=== PATIENT | female | born 1995 | race Caucasian/White ===

== ENCOUNTER → 2018-04-06 09:47 | Outpatient (CLI) | payer OTHER, MEDICAID, SELFPAY ==
--- NOTE | 2018-04-06 09:50 | DI.US.S_ITS ---
PROCEDURE: US PELVIC COMPLETE INDICATIONS: RIGHT OVARIAN PAIN TECHNIQUE: Real-time scanning was performed of the pelvic organs, with image documentation. Additional endovaginal scanning was necessary due to incomplete visualization of the adnexal and endometrial structures by transabdominal scanning. COMPARISON: [facility], [place], PELVIC COMPLETE, 01/24/2018, 7:52. [facility], [place], PELVIC COMPLETE, 01/14/2018, 22:56. [facility], [place], ABDOMEN/PELVIS WITH CONTRAST, 10/15/2017, 8:54. [facility], [place], PELVIC COMPLETE, 04/26/2017, 16:23. [facility], [place], PELVIC COMPLETE, 07/03/2016, 15:01. FINDINGS: Transabdominal scanning: Limited scanning through the kidneys shows no hydronephrosis. No pathologic free abdominal or pelvic fluid. Endovaginal scanning: Uterus: The uterus is normal in position and measures 6.1 x 3.6 x 3.8 cm. No focal myometrial lesions are identified. The endometrium is trilaminar appearance and measures 7 mm in maximal combined thickness. No significant fluid is seen within the endometrium. The cervix is unremarkable. Ovaries: The right ovary measures 3.8 x 1.6 x 1.8 cm. The left ovary measures 4.6 x 1.6 x 2.6 cm. Both ovaries are normal in size. No cystic or solid lesions of the ovaries are evident. Small follicles are present on both ovaries. Blood flow is demonstrated to both ovaries, which demonstrate normal Doppler arterial wave forms. IMPRESSION: Unremarkable uterus and ovaries. No ovarian cysts. Dictated by: Tj Álvarez M.D. on 04/06/2018 at 11:04 Approved by: Tj Álvarez M.D. on 04/06/2018 at 11:05
== END ==
PROVIDERS: Family Provider Physician Assistant; PCP Physician Assistant; Visit Provider Obstetrics & Gynecology
DX: R10.2 Pelvic and perineal pain (principal)
CPT/HCPCS: 76830; 76856

== ENCOUNTER 2018-06-15 19:17 | Emergency (ER) | payer OTHER, SELFPAY ==
[2018-06-15 19:35] VITALS: BP 143/103; PULSE 87; RESP 17; TEMP 36.7; O2SAT 100; BMI 22.1
--- NOTE | 2018-06-15 21:03 | PC.NURSE ---
2100 upset about wait and wanted to know how much longer before seeing a MD. I told him that I couldn't be certain and told him my guess was 30 minutes. Asked Katie if there was anything I could do to start the patient and she said not right now. US told about patient
[2018-06-15 21:11] VITALS: BP 141/89; PULSE 79; RESP 16; O2SAT 98
--- NOTE | 2018-06-15 21:18 | DI.US.S_ITS ---
PROCEDURE: US PELVIC COMPLETE INDICATIONS: LEFT PELVIC PAIN TECHNIQUE: Real-time scanning was performed of the pelvic organs, with image documentation. Additional endovaginal scanning was necessary due to incomplete visualization of the adnexal and endometrial structures by transabdominal scanning. COMPARISON: [facility], PELVIC COMPLETE, 01/14/2018, 22:56. [facility], PELVIC COMPLETE, 01/24/2018, 7:52. [facility], PELVIC COMPLETE, 04/06/2018, 10:14. FINDINGS: Transabdominal scanning: Limited scanning through the kidneys shows no hydronephrosis. The kidneys measure 11.3 CM right and 10.6 CM left. Small free pelvic fluid is present. Endovaginal scanning: Uterus: Uterus is normal in size at 3.5 x 4.2 x 5.8 cm. The endometrium measures 6.8 mm in combined thickness. Ovaries: The right ovary measures 18 x 20 x 38 mm with normal appearance. The left ovary measures 17 x 30 x 38 mm and contains a complex, avascular cyst measuring 13 x 19 x 24 mm. IMPRESSION: 1. Normal uterus and right ovary. 2. Left ovary contains a slightly irregular cyst measuring up to 2.4 cm in size. With presence of mild free fluid, recently ruptured cyst is suspected and could explain left pelvic pain. Dictated by: Valentin Garcia M.D. on 06/16/2018 at 8:33 Approved by: Valentin Garcia M.D. on 06/16/2018 at 8:41
--- NOTE | 2018-06-15 21:20 | ED.FEMALEGU ---
HPI - Female Genitourinary General Chief complaint: Urogenital-Female Stated complaint: PELVIC PAIN Time Seen by Provider: 06/15/18 21:15 Source: patient Mode of arrival: ambulatory Limitations: no limitations History of Present Illness HPI Narrative: Patient is a 22-year-old female who presents with left lower quadrant pain. She has a history of ovarian cyst. This feels similar. She has been having pain for the last 2 days progressively getting worse. She took a muscle relaxer which did not work. She denies any vaginal bleeding or vaginal discharge. MD Complaint: pelvic pain Related Data Previous Rx's Medication Instructions Recorded bupropion HCl [Wellbutrin XL] 150 mg PO QDAY #30 tab 03/05/17 estradiol [Estrace] 1 gm VAGINAL BID #30 gm 08/11/17 estradiol [Estring] 0.0075 mg VAGINAL Q 3 MONTHS #1 icr 11/23/17 fluticasone 1 spray INTRANASAL QDAY #16 gm 02/23/18 loratadine-pseudoephedrine 1 tab PO QDAY #30 tab 02/23/18 [Claritin-D 24 Hour] [id number] 1 drp OTIC TID #10 ml 02/23/18 griseofulvin microsize 125 mg/5 mL 250 mg PO BID #240 ml 04/14/18 oral suspension meloxicam [Mobic] 7.5 mg PO DAILY PRN #20 tab 06/15/18 Allergies Allergy/AdvReac Type Severity Reaction Status Date / Time No Known Drug Allergies Allergy Verified 06/15/18 19:35 Review of Systems Review of Systems All systems reviewed & are unremarkable except as noted in HPI and below Constitutional Denies chills, Denies fever(s), Denies lethargy and Denies weakness Cardiovascular Denies chest pain, Denies irregular heart rhythm, Denies lightheadedness, Denies palpitations and Denies orthopnea Gastrointestinal Gastrointestinal: Denies abdominal pain, Denies change in bowel habits, Denies diarrhea, Denies nausea and Denies vomiting Genitourinary Reports system reviewed and no additional complaints, except as docu Musculoskeletal Denies back pain, Denies muscle weakness, Denies numbness and Denies tingling Integumentary/Breasts Denies pruritus, Denies erythema, Denies rash and Denies wounds Neurologic Denies numbness, Denies tingling and Denies weakness Endocrine Denies palpitations [facility] Medical History Ovarian cyst (Acute) Dyspareunia (Chronic Unknown) Surgical History History of third molar tooth extraction Status post laparoscopy (07/20/16) Status post laparoscopy (10/29/17) Social History Smoking Status: Never smoker alcohol intake: never substance use type: does not use Exam Initial Vital Signs Initial Vital Signs: Vital Signs Temperature 98.1 F 06/15/18 19:35 Pulse Rate 87 06/15/18 19:35 Respiratory Rate 17 06/15/18 19:35 Blood Pressure 143/103 H 06/15/18 19:35 Pulse Oximetry 100 06/15/18 19:35 GENERAL: Young female appears in pain HEENT: Head atraumatic,EOMI, pupils reactive CARDIOVASCULAR: Regular rate and rhythm without murmurs, rubs or gallops. RESPIRATORY: Breath sounds equal bilaterally, no wheezes rales or rhonchi. ABDOMEN: Soft, left lower quadrant pain without guarding or rebound, no CVA tenderness EXTREMITIES: Normal range of motion, no clubbing or edema. Neurovascularly intact NEUROLOGICAL: Alert and oriented x4.Normal gait and speech. SKIN: Warm, dry, no laceration, no petechiae, no rashes or lesions. Course Orders Ordered: ED Orders 06/15/18 21:18 US pelvic complete Stat Discontinued Medications Ketorolac Tromethamine (Toradol) 60 mg IM NOW ONE Stop: 06/15/18 21:16 Last Admin: 06/15/18 21:27 Dose: 60 mg Ondansetron HCl (Zofran Odt) 4 mg PO NOW ONE Stop: 06/15/18 21:16 Last Admin: 06/15/18 21:27 Dose: 4 mg Tramadol HCl (Ultram 50mg Prepack) 1 bottle MISC SEEINSTR ONE Stop: 06/15/18 23:32 Last Admin: 06/15/18 23:32 Dose: 1 bottle Vital Signs - 8 hr 06/15/18 21:11 06/15/18 22:00 Pulse Rate 79 81 Respiratory Rate 16 Blood Pressure [Left Arm] 141/89 H 117/76 Pulse Oximetry 98 98 MDM - Female Genitourinary Lab Data Attestation: I reviewed the patient's lab results. P.o. see hCG negative POC UA negative Imaging Data Pelvic ultrasound: Radiologist's impression: PROCEDURE: US PELVIC COMPLETE INDICATIONS: RIGHT OVARIAN PAIN TECHNIQUE: Real-time scanning was performed of the pelvic organs, with image documentation. Additional endovaginal scanning was necessary due to incomplete visualization of the adnexal and endometrial structures by transabdominal scanning. COMPARISON: [facility], [place], PELVIC COMPLETE, 01/24/2018, 7:52. [facility], [place], PELVIC COMPLETE, 01/14/2018, 22:56. [facility], CT, ABDOMEN/PELVIS WITH CONTRAST, 10/15/2017, 8:54. [facility], [place], PELVIC COMPLETE, 04/26/2017, 16:23. [facility], , PELVIC COMPLETE, 07/03/2016, 15:01. FINDINGS: Transabdominal scanning: Limited scanning through the kidneys shows no hydronephrosis. No pathologic free abdominal or pelvic fluid. Endovaginal scanning: Uterus: The uterus is normal in position and measures 6.1 x 3.6 x 3.8 cm. No focal myometrial lesions are identified. The endometrium is trilaminar appearance and measures 7 mm in maximal combined thickness. No significant fluid is seen within the endometrium. The cervix is unremarkable. Ovaries: The right ovary measures 3.8 x 1.6 x 1.8 cm. The left ovary measures 4.6 x 1.6 x 2.6 cm. Both ovaries are normal in size. No cystic or solid lesions of the ovaries are evident. Small follicles are present on both ovaries. Blood flow is demonstrated to both ovaries, which demonstrate normal Doppler arterial wave forms. IMPRESSION: Unremarkable uterus and ovaries. No ovarian cysts. Dictated by: Tj Álvarez M.D. on 04/06/2018 at 11:04 MDM Narrative Medical decision making narrative: Initially feeling much better after Toradol. Ovarian cyst noted. She has an appointment with a new advanced developer or endometriosis specialist. That is to have in the next couple of weeks. Discharge Plan Departure Patient Disposition: Home, Self-Care Clinical Impression: Ovarian cyst Discharge Date/Time: 06/15/18 23:32 Interventions: ED Discharge Assessment Last Done: 06/15/18 23:13 Instructions: DI for Ovarian Cyst Activity Restrictions/Additional Instructions: *You have been diagnosed with ovarian cyst *What to do: Follow-up with your advanced developer specialist *Continue to take medications as directed-[facility] [place] Mobic 1 tablet once a day if needed for pain do not combine with other NSAIDs such as ibuprofen, Aleve, Advil naproxen etc *Follow up with your primary care provider in 2-3 days *Return to ER if you should have increasing pain, vaginal bleeding or any new, worsening or concerning symptoms Prescriptions: New meloxicam [Mobic] 7.5 mg tablet 7.5 mg PO DAILY PRN (Reason: pain) Qty: 20 RF: 0 No Action griseofulvin microsize 125 mg/5 mL suspension 250 mg PO BID Qty: 240 RF: 3 bupropion HCl [Wellbutrin XL] 150 MG tablet extended release 24 hr 150 mg PO QDAY Qty: 30 RF: 3 estradiol [Estrace] 0.01 % cream 1 gm Vaginal BID Qty: 30 RF: 3 estradiol [Estring] 1 EACH ring 0.0075 mg Vaginal Q 3 MONTHS Qty: 1 RF: 3 loratadine-pseudoephedrine [Claritin-D 24 Hour] 10 MG/240 MG tablet extended release 24 hr 1 tab PO QDAY Qty: 30 RF: 2 fluticasone 16 GM spray,suspension 1 spray Intranasal QDAY Qty: 16 RF: 1 [id number] 10 ML drops,suspension 1 drp OTIC TID Qty: 10 RF: 1 Referrals: Carolin Gutierrez PA-C [Primary Care Provider] -
--- NOTE | 2018-06-15 21:23 | ED_ITS ---
HPI - Female Genitourinary General Chief complaint: Urogenital-Female Stated complaint: PELVIC PAIN Time Seen by Provider: 06/15/18 21:15 Source: patient Mode of arrival: ambulatory Limitations: no limitations History of Present Illness HPI Narrative: Patient is a 22-year-old female who presents with left lower quadrant pain. She has a history of ovarian cyst. This feels similar. She has been having pain for the last 2 days progressively getting worse. She took a muscle relaxer which did not work. She denies any vaginal bleeding or vaginal discharge. MD Complaint: pelvic pain Related Data Previous Rx's Medication Instructions Recorded bupropion HCl [Wellbutrin XL] 150 mg PO QDAY #30 tab 03/05/17 estradiol [Estrace] 1 gm VAGINAL BID #30 gm 08/11/17 estradiol [Estring] 0.0075 mg VAGINAL Q 3 MONTHS #1 icr 11/23/17 fluticasone 1 spray INTRANASAL QDAY #16 gm 02/23/18 loratadine-pseudoephedrine 1 tab PO QDAY #30 tab 02/23/18 [Claritin-D 24 Hour] [id number] 1 drp OTIC TID #10 ml 02/23/18 griseofulvin microsize 125 mg/5 mL 250 mg PO BID #240 ml 04/14/18 oral suspension meloxicam [Mobic] 7.5 mg PO DAILY PRN #20 tab 06/15/18 Allergies Allergy/AdvReac Type Severity Reaction Status Date / Time No Known Drug Allergies Allergy Verified 06/15/18 19:35 Review of Systems Review of Systems All systems reviewed & are unremarkable except as noted in HPI and below Constitutional Denies chills, Denies fever(s), Denies lethargy and Denies weakness Cardiovascular Denies chest pain, Denies irregular heart rhythm, Denies lightheadedness, Denies palpitations and Denies orthopnea Gastrointestinal Gastrointestinal: Denies abdominal pain, Denies change in bowel habits, Denies diarrhea, Denies nausea and Denies vomiting Genitourinary Reports system reviewed and no additional complaints, except as docu Musculoskeletal Denies back pain, Denies muscle weakness, Denies numbness and Denies tingling Integumentary/Breasts Denies pruritus, Denies erythema, Denies rash and Denies wounds Neurologic Denies numbness, Denies tingling and Denies weakness Endocrine Denies palpitations [facility] Medical History Ovarian cyst (Acute) Dyspareunia (Chronic Unknown) Surgical History History of third molar tooth extraction Status post laparoscopy (07/20/16) Status post laparoscopy (10/29/17) Social History Smoking Status: Never smoker alcohol intake: never substance use type: does not use Exam Initial Vital Signs Initial Vital Signs: Vital Signs Temperature 98.1 F 06/15/18 19:35 Pulse Rate 87 06/15/18 19:35 Respiratory Rate 17 06/15/18 19:35 Blood Pressure 143/103 H 06/15/18 19:35 Pulse Oximetry 100 06/15/18 19:35 GENERAL: Young female appears in pain HEENT: Head atraumatic,EOMI, pupils reactive CARDIOVASCULAR: Regular rate and rhythm without murmurs, rubs or gallops. RESPIRATORY: Breath sounds equal bilaterally, no wheezes rales or rhonchi. ABDOMEN: Soft, left lower quadrant pain without guarding or rebound, no CVA tenderness EXTREMITIES: Normal range of motion, no clubbing or edema. Neurovascularly intact NEUROLOGICAL: Alert and oriented x4.Normal gait and speech. SKIN: Warm, dry, no laceration, no petechiae, no rashes or lesions. Course Orders Ordered: ED Orders 06/15/18 21:18 US pelvic complete Stat Discontinued Medications Ketorolac Tromethamine (Toradol) 60 mg IM NOW ONE Stop: 06/15/18 21:16 Last Admin: 06/15/18 21:27 Dose: 60 mg Ondansetron HCl (Zofran Odt) 4 mg PO NOW ONE Stop: 06/15/18 21:16 Last Admin: 06/15/18 21:27 Dose: 4 mg Tramadol HCl (Ultram 50mg Prepack) 1 bottle MISC SEEINSTR ONE Stop: 06/15/18 23:32 Last Admin: 06/15/18 23:32 Dose: 1 bottle Vital Signs - 8 hr 06/15/18 21:11 06/15/18 22:00 Pulse Rate 79 81 Respiratory Rate 16 Blood Pressure [Left Arm] 141/89 H 117/76 Pulse Oximetry 98 98 MDM - Female Genitourinary Lab Data Attestation: I reviewed the patient's lab results. P.o. see hCG negative POC UA negative Imaging Data Pelvic ultrasound: Radiologist's impression: PROCEDURE: US PELVIC COMPLETE INDICATIONS: RIGHT OVARIAN PAIN TECHNIQUE: Real-time scanning was performed of the pelvic organs, with image documentation. Additional endovaginal scanning was necessary due to incomplete visualization of the adnexal and endometrial structures by transabdominal scanning. COMPARISON: [facility], [place], PELVIC COMPLETE, 01/24/2018, 7:52. [facility], [place], PELVIC COMPLETE, 01/14/2018, 22:56. [facility], CT, ABDOMEN/PELVIS WITH CONTRAST, 10/15/2017, 8:54. [facility], [place], PELVIC COMPLETE, 04/26/2017, 16:23. [facility], , PELVIC COMPLETE, 07/03/2016, 15:01. FINDINGS: Transabdominal scanning: Limited scanning through the kidneys shows no hydronephrosis. No pathologic free abdominal or pelvic fluid. Endovaginal scanning: Uterus: The uterus is normal in position and measures 6.1 x 3.6 x 3.8 cm. No focal myometrial lesions are identified. The endometrium is trilaminar appearance and measures 7 mm in maximal combined thickness. No significant fluid is seen within the endometrium. The cervix is unremarkable. Ovaries: The right ovary measures 3.8 x 1.6 x 1.8 cm. The left ovary measures 4.6 x 1.6 x 2.6 cm. Both ovaries are normal in size. No cystic or solid lesions of the ovaries are evident. Small follicles are present on both ovaries. Blood flow is demonstrated to both ovaries, which demonstrate normal Doppler arterial wave forms. IMPRESSION: Unremarkable uterus and ovaries. No ovarian cysts. Dictated by: Tj Álvarez M.D. on 04/06/2018 at 11:04 MDM Narrative Medical decision making narrative: Initially feeling much better after Toradol. Ovarian cyst noted. She has an appointment with a new fill plant operator or endometriosis specialist. That is to have in the next couple of weeks. Discharge Plan Departure Patient Disposition: Home, Self-Care Clinical Impression: Ovarian cyst Discharge Date/Time: 06/15/18 23:32 Interventions: ED Discharge Assessment Last Done: 06/15/18 23:13 Instructions: DI for Ovarian Cyst Activity Restrictions/Additional Instructions: *You have been diagnosed with ovarian cyst *What to do: Follow-up with your fill plant operator specialist *Continue to take medications as directed-[facility] [place] Mobic 1 tablet once a day if needed for pain do not combine with other NSAIDs such as ibuprofen, Aleve, Advil naproxen etc *Follow up with your primary care provider in 2-3 days *Return to ER if you should have increasing pain, vaginal bleeding or any new, worsening or concerning symptoms Prescriptions: New meloxicam [Mobic] 7.5 mg tablet 7.5 mg PO DAILY PRN (Reason: pain) Qty: 20 RF: 0 No Action griseofulvin microsize 125 mg/5 mL suspension 250 mg PO BID Qty: 240 RF: 3 bupropion HCl [Wellbutrin XL] 150 MG tablet extended release 24 hr 150 mg PO QDAY Qty: 30 RF: 3 estradiol [Estrace] 0.01 % cream 1 gm Vaginal BID Qty: 30 RF: 3 estradiol [Estring] 1 EACH ring 0.0075 mg Vaginal Q 3 MONTHS Qty: 1 RF: 3 loratadine-pseudoephedrine [Claritin-D 24 Hour] 10 MG/240 MG tablet extended release 24 hr 1 tab PO QDAY Qty: 30 RF: 2 fluticasone 16 GM spray,suspension 1 spray Intranasal QDAY Qty: 16 RF: 1 [id number]-[id number] 10 ML drops,suspension 1 drp OTIC TID Qty: 10 RF: 1 Referrals: Carolin Gutierrez PA-C [Primary Care Provider] -
[2018-06-15] MEDS: KETOROLAC 60 MG/2 ML VIAL IM (21:27)
[2018-06-15] MEDS: ONDANSETRON 4 MG ODT PO (21:27)
[2018-06-15 22:00] VITALS: BP 117/76; PULSE 81; O2SAT 98
--- NOTE | 2018-06-15 23:01 | PC.NURSE ---
D/C paperwork ready. Awaiting MD to review US with patient and spouse. They are aware of the plan of care.
[2018-06-15] MEDS: TRAMADOL 50 MG PREPACK 1 BOTTLE MISC (23:32)
== END 2018-06-15 23:32 | disposition home or self-care (01) ==
PROVIDERS: Emergency Provider Emergency Medicine; Family Provider Physician Assistant; PCP Physician Assistant
DX: N83.209 Unspecified ovarian cyst, unspecified side (principal)
CPT/HCPCS: 76830; 76856; 81003; 81025; 96372; 99282; 99284; J1885

== ENCOUNTER → 2018-10-20 16:23 | Outpatient (CLI) | payer OTHER, SELFPAY | PROVIDERS: PCP Physician Assistant; Visit Provider Physician Assistant | DX: N89.8 Other specified noninflammatory disorders of vagina (principal) | CPT/HCPCS: 87210 ==

== ENCOUNTER → 2018-12-30 07:12 | Outpatient (CLI) | payer OTHER, SELFPAY ==
--- NOTE | 2018-12-30 07:15 | DI.US.S_ITS ---
PROCEDURE: US PELVIC COMPLETE INDICATIONS: PELVIC PAIN TECHNIQUE: Real-time scanning was performed of the pelvic organs, with image documentation. Additional endovaginal scanning was necessary due to incomplete visualization of the adnexal and endometrial structures by transabdominal scanning. COMPARISON: [facility], , [place] PELVIC COMPLETE, 06/15/2018, 21:49. FINDINGS: Transabdominal scanning: Limited scanning through the kidneys shows no hydronephrosis. No pathologic free abdominal or pelvic fluid. Endovaginal scanning: Uterus: Uterus is normal in size at 7.7 x 4.2 x 3.1 cm. The endometrium measures 5-6 mm in combined thickness. Ovaries: Left ovary normal measuring 2.8 x 1.4 x 1 cm. Previously described left ovarian irregular cystic lesion has resolved. Right ovary measures 4.0 x 3.0 x 2.2 cm and there is a round right ovarian lesion with internal echoes, possibly solid versus complex cystic lesion measuring 1.4 x 1.6 x 1.6 cm Doppler interrogation demonstrating expected waveforms in both ovaries IMPRESSION: Complex right ovarian lesion with internal echoes, possibly solid appearance versus complex cyst with internal hemorrhagic or proteinaceous contents. This is a new finding since 06/15/18. Recommend followup with repeat pelvic ultrasound in 6 weeks to document resolution or improvement. Large amount of fluid within the cul-de-sac and pelvis, technically nonspecific. Please correlate clinically Dictated by: Elroy Sauer M.D. on 12/30/2018 at 9:01 Approved by: Elroy Sauer M.D. on 12/30/2018 at 9:05
== END ==
PROVIDERS: PCP Physician Assistant; Visit Provider Obstetrics & Gynecology
DX: R10.2 Pelvic and perineal pain (principal); N83.9 Noninflammatory disorder of ovary, fallopian tube and broad ligament, unspecified; N94.89 Other specified conditions associated with female genital organs and menstrual cycle
CPT/HCPCS: 76830; 76856

== ENCOUNTER → 2019-01-24 08:42 | Outpatient (CLI) | payer OTHER, SELFPAY ==
[2019-01-24 09:55] LABS: Glucose 90 mg/dL (70-100)
[2019-01-24 10:11] LABS: Follicle Stimulating Hormone 5.98 mIU/mL; Luteinizing Hormone 5.04 mIU/mL
[2019-01-25 14:33] LABS: Insulin Level Total 5.9 uIU/mL (2.0-19.6)
== END ==
PROVIDERS: PCP Physician Assistant; Visit Provider Obstetrics & Gynecology
DX: E28.2 Polycystic ovarian syndrome (principal)
CPT/HCPCS: 36415; 82947; 83001; 83002; 83525

== ENCOUNTER 2019-01-30 18:08 | Emergency (ER) | payer OTHER, SELFPAY ==
[2019-01-30 18:42] VITALS: BP 135/90; PULSE 70; RESP 14; TEMP 37.2; O2SAT 99
--- NOTE | 2019-01-30 19:16 | DI.RAD.S_ITS ---
PROCEDURE: XR CHEST 2V INDICATIONS: heart racing, shortness of breath TECHNIQUE: 2 views of the chest were acquired. COMPARISON: None. FINDINGS: Surgical changes and devices: None. Lungs and pleura: Lungs are clear. No pleural effusions or pneumothorax. Mediastinum: Mediastinal contours are normal. Heart size is normal. Bones and chest wall: No suspicious bony abnormalities. Soft tissues appear unremarkable. IMPRESSION: No acute disease. Dictated by: Martinez Moon M.D. on 01/30/2019 at 20:18 Approved by: Martinez Moon M.D. on 01/30/2019 at 20:18
--- NOTE | 2019-01-30 20:02 | ED.SOB ---
HPI - SOB/Dyspnea <Tete Daly PA-C - Last Filed: 01/30/19 22:20> General Chief Complaint: Shortness of Breath/Dyspnea Stated Complaint: thinks Adverse reaction to Moxiflaxicin Time Seen by Provider: 01/30/19 20:02 Source: patient Mode of arrival: ambulatory Limitations: no limitations History of Present Illness This 23-year-old female comes to ED secondary to concern for reaction to Avelox, which she started taking on Wednesday for refractory years and sinus symptoms. She states that she did not notice any problems on Wednesday, however she states that she has felt slightly short of breath since Wednesday, which she describes as a mild air hunger or like after a hard workout. She states that her chest feels a little bit sore but also feels like she has soreness in her arms and legs and random muscle cramps and burning pain. She states that she feels tired, and ?foggy?, which she initially describes as dizzy but does not have any spinning or feel faint. She states that she does have a history of costochondritis and pain is a little bit like that but not quite typical. She denies any new fever or rash. She states that she has some postnasal drip, but has only had very minimal cough. She has not had wheezing. She does have a history of some reactive airways but this does not feel quite typical to her. She states she has had some increased bowel gas and left-sided upper cramps since starting the antibiotic which are brief. She has not had any new urinary symptoms or bowel changes. She has not had any new swelling in her extremities. No family history of venous clots, +family history of CAD and arterial clots. She denies any possibility of stating she is progesterone had ultrasound last week Related Data Home Medications Medication Instructions Recorded Confirmed Metaxalone See Rx Instructions .ROUTE .COMPLEX 07/12/18 01/26/19 Tizanidine See Rx Instructions .ROUTE .COMPLEX 07/12/18 01/26/19 progesterone micronized PO 01/26/19 01/26/19 Previous Rx's Medication Instructions Recorded meloxicam [Mobic] 7.5 mg PO DAILY PRN #20 tab 06/15/18 moxifloxacin 400 mg tablet 400 mg PO DAILY #10 tab 01/26/19 Allergies Allergy/AdvReac Type Severity Reaction Status Date / Time No Known Drug Allergies Allergy Verified 01/26/19 15:26 Review of Systems <Tete Daly PA-C - Last Filed: 01/30/19 22:20> Review of Systems ROS Unobtainable: All systems reviewed & are unremarkable except as noted in HPI and below PFSH <Tete Daly PA-C - Last Filed: 01/30/19 22:20> Medical History Ovarian cyst (Acute) Dyspareunia (Chronic Unknown) Endometriosis (Chronic) Surgical History History of third molar tooth extraction Status post laparoscopy (07/20/16) Status post laparoscopy (10/29/17) Social History Smoking Status: Never smoker second hand exposure: No alcohol intake: current (very rarely) substance use type: does not use Social History Smoking Status: Never smoker second hand exposure: No alcohol intake: current (very rarely) substance use type: does not use Exam <Tete Daly PA-C - Last Filed: 01/30/19 22:20> Narrative Exam Narrative: GENERAL APPEARANCE: Patient sitting comfortably, in no distress. HEAD: No sinus TTP. EYES: PERRL, EOMI. EARS: Normal auditory canals, TMS intact with normal light reflexes. ORAL CAVITY: Normal oropharynx. THROAT: No erythema, normal PND NECK/THYROID: Neck supple, full range of motion, no cervical lymphadenopathy. LUNGS: Clear to auscultation bilaterally, no cough on exam. CHEST: Mild anterior chest and sternal tenderness to palpation HEART: RRR without murmur, nl S1, S2, no S3 or S4. ABDOMEN: Soft, nontender, nondistended, +bowel sounds x4 quadrants EXTREMITIES: Mild generalized tenderness throughout the extremities, no focal tenderness over the calves, no edema DERMATOLOGIC: No exanthem Initial Vital Signs Initial Vital Signs: Vital Signs Temperature 99 F 01/30/19 18:42 Pulse Rate 70 01/30/19 18:42 Respiratory Rate 14 01/30/19 18:42 Blood Pressure 135/90 01/30/19 18:42 Pulse Oximetry 99 01/30/19 18:42 <Jesse Walden DO - Last Filed: 01/31/19 02:08> Initial Vital Signs Initial Vital Signs: Vital Signs Temperature 99 F 01/30/19 18:42 Pulse Rate 70 01/30/19 18:42 Respiratory Rate 14 01/30/19 18:42 Blood Pressure 135/90 01/30/19 18:42 Pulse Oximetry 99 01/30/19 18:42 Course <Tete Daly PA-C - Last Filed: 01/30/19 22:20> Additional Information: Patient's chest is feeling better after nebulizer treatment. She has occasionally needed treatment for reactive airways in the past and was given albuterol inhaler with spacer training. Her myalgias and other symptoms could potentially be due to Avelox since there is a time correlation with her starting it. She will discontinue this and follow up with her PCP for recheck in the next day or 2. She agreed to return here for acutely worsening symptoms again. Discussed that it may be helpful to obtain sinus CT before further antibiotics especially given that her ears look significantly improved from what she described to me previously. Orders Ordered: ED Orders 01/30/19 19:16 Chest [XR chest 2V] Stat EKG-12 Lead Stat 01/30/19 20:30 Basic Metabolic Panel Stat Complete Blood Count AUTO DIFF Stat Creatine Kinase Stat D Dimer Stat 01/30/19 20:35 Influenza A and B by PCR Rapid Stat Discontinued Medications Albuterol (Ventolin) 2.5 mg INH NOW ONE Stop: 01/30/19 20:17 Last Admin: 01/30/19 20:23 Dose: 2.5 mg Albuterol (Ventolin Hfa Prepack) 1 box MISC SEEINSTR ONE Stop: 01/30/19 21:34 Vital Signs - 8 hr 01/30/19 18:42 01/30/19 20:23 01/30/19 21:40 Temperature 99 F Pulse Rate 70 83 91 H Respiratory Rate 14 14 18 Blood Pressure 135/90 118/72 Pulse Oximetry 99 98 99 <Jesse Walden DO - Last Filed: 01/31/19 02:08> Orders Ordered: ED Orders 01/30/19 19:16 Chest [XR chest 2V] Stat EKG-12 Lead Stat 01/30/19 20:30 Basic Metabolic Panel Stat Complete Blood Count AUTO DIFF Stat Creatine Kinase Stat D Dimer Stat 01/30/19 20:35 Influenza A and B by PCR Rapid Stat Discontinued Medications Albuterol (Ventolin) 2.5 mg INH NOW ONE Stop: 01/30/19 20:17 Last Admin: 01/30/19 20:23 Dose: 2.5 mg Albuterol (Ventolin Hfa Prepack) 1 box MISC SEEINSTR ONE Stop: 01/30/19 21:34 Vital Signs - 8 hr 01/30/19 18:42 01/30/19 20:23 01/30/19 21:40 Temperature 99 F Pulse Rate 70 83 91 H Respiratory Rate 14 14 18 Blood Pressure 135/90 118/72 Pulse Oximetry 99 98 99 MDM - SOB/Dyspnea <Tete Daly PA-C - Last Filed: 01/30/19 22:20> Lab Data Attestation: I reviewed the patient's lab results. Result diagrams: 01/30/19 20:30 01/30/19 20:30 Lab Results 01/30/19 01/30/19 01/30/19 Range/Units 20:30 20:30 20:30 WBC 7.8 (4.5-11.0) X10^3/uL RBC 4.46 (4.0-5.2) X10^6/uL Hgb 13.1 (12.0-16.0) g/dL Hct 39.0 (36-46) % MCV 87.4 (80-100) fL MCH 29.4 (26-34) PG MCHC 33.7 (30-36) % RDW 12.6 (11.6-14.8) % Plt Count 320 (150-400) X10^3/uL Neut % (Auto) 56.4 (50-75) % Lymph % (Auto) 37.4 (25-40) % [place] % (Auto) 4.7 (3-14) % Eos % (Auto) 0.8 L (2-4) % Baso % (Auto) 0.7 (0-2) % Neut # (Auto) 4400 (5916-9770) /uL Lymph # (Auto) 2900 (2486-0152) /uL [place] # (Auto) 400 (0-900) /uL Eos # (Auto) 100 (0-450) /uL Baso # (Auto) 100 (0-100) /uL D-Dimer < 200 (<230) ng/mL Sodium 138 (137-145) mmol/L Potassium 3.8 (3.4-5.1) mmol/L Chloride 105 (98-107) mmol/L Carbon Dioxide 22 (22-32) mmol/L BUN 8 (7-17) mg/dL Creatinine 0.70 (0.52-1.04) mg/dL Estimated GFR > 60.0 (>60) mL/min BUN/Creatinine Ratio 11.4 (6-22) Glucose 88 (70-100) mg/dL Calcium 9.4 (8.4-10.2) mg/dL Total Creatine Kinase 180 H (30-135) U/L Influenza A & B (PCR) (Negative) 01/30/19 Range/Units 20:35 WBC (4.5-11.0) X10^3/uL RBC (4.0-5.2) X10^6/uL Hgb (12.0-16.0) g/dL Hct (36-46) % MCV (80-100) fL MCH (26-34) PG MCHC (30-36) % RDW (11.6-14.8) % Plt Count (150-400) X10^3/uL Neut % (Auto) (50-75) % Lymph % (Auto) (25-40) % [place] % (Auto) (3-14) % Eos % (Auto) (2-4) % Baso % (Auto) (0-2) % Neut # (Auto) (5399-8781) /uL Lymph # (Auto) (0544-6656) /uL [place] # (Auto) (0-900) /uL Eos # (Auto) (0-450) /uL Baso # (Auto) (0-100) /uL D-Dimer (<230) ng/mL Sodium (137-145) mmol/L Potassium (3.4-5.1) mmol/L Chloride (98-107) mmol/L Carbon Dioxide (22-32) mmol/L BUN (7-17) mg/dL Creatinine (0.52-1.04) mg/dL Estimated GFR (>60) mL/min BUN/Creatinine Ratio (6-22) Glucose (70-100) mg/dL Calcium (8.4-10.2) mg/dL Total Creatine Kinase (30-135) U/L Influenza A & B (PCR) Negative (Negative) Imaging Data Chest x-ray: Radiologist's impression: [address] [address] XRay Report Signed Patient: Yumiko Madrigal LMR#: [id number] : 1995Acct:[id number] Age/Sex: 23 / FDate of Service: 01/30/19 Loc: ED Accession Number: [id number] Procedure: XR chest 2V Ordering Provider: Jesse Walden D.O. PROCEDURE: XR CHEST 2V INDICATIONS: heart racing, shortness of breath TECHNIQUE: 2 views of the chest were acquired. COMPARISON: None. FINDINGS: Surgical changes and devices: None. Lungs and pleura: Lungs are clear. No pleural effusions or pneumothorax. Mediastinum: Mediastinal contours are normal. Heart size is normal. Bones and chest wall: No suspicious bony abnormalities. Soft tissues appear unremarkable. IMPRESSION: No acute disease. Dictated by: Martinez Moon M.D. on 01/30/2019 at 20:18 Approved by: Martinez Moon M.D. on 01/30/2019 at 20:18 ECG Data Attestation: I personally reviewed and interpreted this ECG as follows: (Normal sinus rhythm with rate 68, normal axis) <Jesse Walden DO - Last Filed: 01/31/19 02:08> Lab Data Lab Results 01/30/19 01/30/19 01/30/19 Range/Units 20:30 20:30 20:30 WBC 7.8 (4.5-11.0) X10^3/uL RBC 4.46 (4.0-5.2) X10^6/uL Hgb 13.1 (12.0-16.0) g/dL Hct 39.0 (36-46) % MCV 87.4 (80-100) fL MCH 29.4 (26-34) PG MCHC 33.7 (30-36) % RDW 12.6 (11.6-14.8) % Plt Count 320 (150-400) X10^3/uL Neut % (Auto) 56.4 (50-75) % Lymph % (Auto) 37.4 (25-40) % [place] % (Auto) 4.7 (3-14) % Eos % (Auto) 0.8 L (2-4) % Baso % (Auto) 0.7 (0-2) % Neut # (Auto) 4400 (5953-5708) /uL Lymph # (Auto) 2900 (3128-2536) /uL [place] # (Auto) 400 (0-900) /uL Eos # (Auto) 100 (0-450) /uL Baso # (Auto) 100 (0-100) /uL D-Dimer < 200 (<230) ng/mL Sodium 138 (137-145) mmol/L Potassium 3.8 (3.4-5.1) mmol/L Chloride 105 (98-107) mmol/L Carbon Dioxide 22 (22-32) mmol/L BUN 8 (7-17) mg/dL Creatinine 0.70 (0.52-1.04) mg/dL Estimated GFR > 60.0 (>60) mL/min BUN/Creatinine Ratio 11.4 (6-22) Glucose 88 (70-100) mg/dL Calcium 9.4 (8.4-10.2) mg/dL Total Creatine Kinase 180 H (30-135) U/L Influenza A & B (PCR) (Negative) 01/30/19 Range/Units 20:35 WBC (4.5-11.0) X10^3/uL RBC (4.0-5.2) X10^6/uL Hgb (12.0-16.0) g/dL Hct (36-46) % MCV (80-100) fL MCH (26-34) PG MCHC (30-36) % RDW (11.6-14.8) % Plt Count (150-400) X10^3/uL Neut % (Auto) (50-75) % Lymph % (Auto) (25-40) % [place] % (Auto) (3-14) % Eos % (Auto) (2-4) % Baso % (Auto) (0-2) % Neut # (Auto) (9800-6984) /uL Lymph # (Auto) (7517-2221) /uL [place] # (Auto) (0-900) /uL Eos # (Auto) (0-450) /uL Baso # (Auto) (0-100) /uL D-Dimer (<230) ng/mL Sodium (137-145) mmol/L Potassium (3.4-5.1) mmol/L Chloride (98-107) mmol/L Carbon Dioxide (22-32) mmol/L BUN (7-17) mg/dL Creatinine (0.52-1.04) mg/dL Estimated GFR (>60) mL/min BUN/Creatinine Ratio (6-22) Glucose (70-100) mg/dL Calcium (8.4-10.2) mg/dL Total Creatine Kinase (30-135) U/L Influenza A & B (PCR) Negative (Negative) Discharge Plan Departure Patient Disposition: Home Clinical Impression: Medication reaction Qualifiers: Encounter type: initial encounter Qualified Code(s): T50.905A - Adverse effect of unspecified drugs, medicaments and biological substances, initial encounter Mild reactive airways disease Qualifiers: Asthma persistence: intermittent Asthma complication type: with acute exacerbation Qualified Code(s): J45.21 - Mild intermittent asthma with (acute) exacerbation Discharge Date/Time: 01/30/19 21:40 Interventions: ED Discharge Assessment Last Done: 01/30/19 21:40 Instructions: DI for Reactive Airway Disease-Adult Activity Restrictions/Additional Instructions: I think that your symptoms are likely related to the antibiotics since they started the day after you began taking it. Please discontinue the moxifloxacin. Use the inhaler as often as you need for tight chest since it was helpful. I think it is likely that your muscle and tendon achiness could be caused by the antibiotic, so hopefully that will resolve once you are off of it for a few days. You can take ibuprofen as needed. Please follow up with JULISA Merchant in the next few days to determine your level of improvement and also whether to start another antibiotic for your sinuses or whether to get a CT scan 1st as she had discussed with you. As we talked about, should return if you have any acutely worsened Prescriptions: No Action Tizanidine See Patient Comments .ROUTE .COMPLEX RF: 0 Metaxalone See Patient Comments .ROUTE .COMPLEX RF: 0 progesterone micronized PO RF: 0 moxifloxacin 400 mg tablet 400 mg PO DAILY Qty: 10 RF: 0 meloxicam [Mobic] 7.5 mg tablet 7.5 mg PO DAILY PRN (Reason: pain) Qty: 20 RF: 0 Referrals: Rachel Merchant PA-C [Primary Care Provider] - <Jesse Walden DO - Last Filed: 01/31/19 02:08> [facility] Attestation: I was immediately available in the department for consultation. Documentation has been reviewed. I agree with assessment and plan.
[2019-01-30 20:23] VITALS: PULSE 83; RESP 14; O2SAT 98
[2019-01-30] MEDS: ALBUTEROL 2.5 MG/3 ML NEB (ADULT) INH (20:23)
--- NOTE | 2019-01-30 20:24 | ED_ITS ---
HPI - SOB/Dyspnea <Tete Daly PA-C - Last Filed: 01/30/19 22:20> General Chief Complaint: Shortness of Breath/Dyspnea Stated Complaint: thinks Adverse reaction to Moxiflaxicin Time Seen by Provider: 01/30/19 20:02 Source: patient Mode of arrival: ambulatory Limitations: no limitations History of Present Illness This 23-year-old female comes to ED secondary to concern for reaction to Avelox, which she started taking on Wednesday for refractory years and sinus symptoms. She states that she did not notice any problems on Wednesday, however she states that she has felt slightly short of breath since Wednesday, which she describes as a mild air hunger or like after a hard workout. She states that her chest feels a little bit sore but also feels like she has soreness in her arms and legs and random muscle cramps and burning pain. She states that she feels tired, and ?foggy?, which she initially describes as dizzy but does not have any spinning or feel faint. She states that she does have a history of costochondritis and pain is a little bit like that but not quite typical. She denies any new fever or rash. She states that she has some postnasal drip, but has only had very minimal cough. She has not had wheezing. She does have a history of some reactive airways but this does not feel quite typical to her. She states she has had some increased bowel gas and left-sided upper cramps since starting the antibiotic which are brief. She has not had any new urinary symptoms or bowel changes. She has not had any new swelling in her extremities. No family history of venous clots, +family history of CAD and arterial clots. She denies any possibility of stating she is progesterone had ultrasound last week Related Data Home Medications Medication Instructions Recorded Confirmed Metaxalone See Rx Instructions .ROUTE .COMPLEX 07/12/18 01/26/19 Tizanidine See Rx Instructions .ROUTE .COMPLEX 07/12/18 01/26/19 progesterone micronized PO 01/26/19 01/26/19 Previous Rx's Medication Instructions Recorded meloxicam [Mobic] 7.5 mg PO DAILY PRN #20 tab 06/15/18 moxifloxacin 400 mg tablet 400 mg PO DAILY #10 tab 01/26/19 Allergies Allergy/AdvReac Type Severity Reaction Status Date / Time No Known Drug Allergies Allergy Verified 01/26/19 15:26 Review of Systems <Tete Daly PA-C - Last Filed: 01/30/19 22:20> Review of Systems ROS Unobtainable: All systems reviewed & are unremarkable except as noted in HPI and below PFSH <Tete Daly PA-C - Last Filed: 01/30/19 22:20> Medical History Ovarian cyst (Acute) Dyspareunia (Chronic Unknown) Endometriosis (Chronic) Surgical History History of third molar tooth extraction Status post laparoscopy (07/20/16) Status post laparoscopy (10/29/17) Social History Smoking Status: Never smoker second hand exposure: No alcohol intake: current (very rarely) substance use type: does not use Social History Smoking Status: Never smoker second hand exposure: No alcohol intake: current (very rarely) substance use type: does not use Exam <Tete Daly PA-C - Last Filed: 01/30/19 22:20> Narrative Exam Narrative: GENERAL APPEARANCE: Patient sitting comfortably, in no distress. HEAD: No sinus TTP. EYES: PERRL, EOMI. EARS: Normal auditory canals, TMS intact with normal light reflexes. ORAL CAVITY: Normal oropharynx. THROAT: No erythema, normal PND NECK/THYROID: Neck supple, full range of motion, no cervical lymphadenopathy. LUNGS: Clear to auscultation bilaterally, no cough on exam. CHEST: Mild anterior chest and sternal tenderness to palpation HEART: RRR without murmur, nl S1, S2, no S3 or S4. ABDOMEN: Soft, nontender, nondistended, +bowel sounds x4 quadrants EXTREMITIES: Mild generalized tenderness throughout the extremities, no focal tenderness over the calves, no edema DERMATOLOGIC: No exanthem Initial Vital Signs Initial Vital Signs: Vital Signs Temperature 99 F 01/30/19 18:42 Pulse Rate 70 01/30/19 18:42 Respiratory Rate 14 01/30/19 18:42 Blood Pressure 135/90 01/30/19 18:42 Pulse Oximetry 99 01/30/19 18:42 <Jesse Walden DO - Last Filed: 01/31/19 02:08> Initial Vital Signs Initial Vital Signs: Vital Signs Temperature 99 F 01/30/19 18:42 Pulse Rate 70 01/30/19 18:42 Respiratory Rate 14 01/30/19 18:42 Blood Pressure 135/90 01/30/19 18:42 Pulse Oximetry 99 01/30/19 18:42 Course <Tete Daly PA-C - Last Filed: 01/30/19 22:20> Additional Information: Patient's chest is feeling better after nebulizer treatment. She has occasionally needed treatment for reactive airways in the past and was given albuterol inhaler with spacer training. Her myalgias and other symptoms could potentially be due to Avelox since there is a time correla tion with her starting it. She will discontinue this and follow up with her PCP for recheck in the next day or 2. She agreed to return here for acutely worsening symptoms again. Discussed that it may be helpful to obtain sinus CT before further antibiotics especially given that her ears look significantly improved from what she described to me previously. Orders Ordered: ED Orders 01/30/19 19:16 Chest [XR chest 2V] Stat EKG-12 Lead Stat 01/30/19 20:30 Basic Metabolic Panel Stat Complete Blood Count AUTO DIFF Stat Creatine Kinase Stat D Dimer Stat 01/30/19 20:35 Influenza A and B by PCR Rapid Stat Discontinued Medications Albuterol (Ventolin) 2.5 mg INH NOW ONE Stop: 01/30/19 20:17 Last Admin: 01/30/19 20:23 Dose: 2.5 mg Albuterol (Ventolin Hfa Prepack) 1 box MISC SEEINSTR ONE Stop: 01/30/19 21:34 Vital Signs - 8 hr 01/30/19 18:42 01/30/19 20:23 01/30/19 21:40 Temperature 99 F Pulse Rate 70 83 91 H Respiratory Rate 14 14 18 Blood Pressure 135/90 118/72 Pulse Oximetry 99 98 99 <Jesse Walden DO - Last Filed: 01/31/19 02:08> Orders Ordered: ED Orders 01/30/19 19:16 Chest [XR chest 2V] Stat EKG-12 Lead Stat 01/30/19 20:30 Basic Metabolic Panel Stat Complete Blood Count AUTO DIFF Stat Creatine Kinase Stat D Dimer Stat 01/30/19 20:35 Influenza A and B by PCR Rapid Stat Discontinued Medications Albuterol (Ventolin) 2.5 mg INH NOW ONE Stop: 01/30/19 20:17 Last Admin: 01/30/19 20:23 Dose: 2.5 mg Albuterol (Ventolin Hfa Prepack) 1 box MISC SEEINSTR ONE Stop: 01/30/19 21:34 Vital Signs - 8 hr 01/30/19 18:42 01/30/19 20:23 01/30/19 21:40 Temperature 99 F Pulse Rate 70 83 91 H Respiratory Rate 14 14 18 Blood Pressure 135/90 118/72 Pulse Oximetry 99 98 99 MDM - SOB/Dyspnea <Tete Daly PA-C - Last Filed: 01/30/19 22:20> Lab Data Attestation: I reviewed the patient's lab results. Result diagrams: 01/30/19 20:30 01/30/19 20:30 Lab Results 01/30/19 01/30/19 01/30/19 Range/Units 20:30 20:30 20:30 WBC 7.8 (4.5-11.0) X10^3/uL RBC 4.46 (4.0-5.2) X10^6/uL Hgb 13.1 (12.0-16.0) g/dL Hct 39.0 (36-46) % MCV 87.4 (80-100) fL MCH 29.4 (26-34) PG MCHC 33.7 (30-36) % RDW 12.6 (11.6-14.8) % Plt Count 320 (150-400) X10^3/uL Neut % (Auto) 56.4 (50-75) % Lymph % (Auto) 37.4 (25-40) % [place] % (Auto) 4.7 (3-14) % Eos % (Auto) 0.8 L (2-4) % Baso % (Auto) 0.7 (0-2) % Neut # (Auto) 4400 (2110-2117) /uL Lymph # (Auto) 2900 (4893-9046) /uL [place] # (Auto) 400 (0-900) /uL Eos # (Auto) 100 (0-450) /uL Baso # (Auto) 100 (0-100) /uL D-Dimer < 200 (<230) ng/mL Sodium 138 (137-145) mmol/L Potassium 3.8 (3.4-5.1) mmol/L Chloride 105 (98-107) mmol/L Carbon Dioxide 22 (22-32) mmol/L BUN 8 (7-17) mg/dL Creatinine 0.70 (0.52-1.04) mg/dL Estimated GFR > 60.0 (>60) mL/min BUN/Creatinine Ratio 11.4 (6-22) Glucose 88 (70-100) mg/dL Calcium 9.4 (8.4-10.2) mg/dL Total Creatine Kinase 180 H (30-135) U/L Influenza A & B (PCR) (Negative) 01/30/19 Range/Units 20:35 WBC (4.5-11.0) X10^3/uL RBC (4.0-5.2) X10^6/uL Hgb (12.0-16.0) g/dL Hct (36-46) % MCV (80-100) fL MCH (26-34) PG MCHC (30-36) % RDW (11.6-14.8) % Plt Count (150-400) X10^3/uL Neut % (Auto) (50-75) % Lymph % (Auto) (25-40) % [place] % (Auto) (3-14) % Eos % (Auto) (2-4) % Baso % (Auto) (0-2) % Neut # (Auto) (7329-6008) /uL Lymph # (Auto) (6904-4497) /uL [place] # (Auto) (0-900) /uL Eos # (Auto) (0-450) /uL Baso # (Auto) (0-100) /uL D-Dimer (<230) ng/mL Sodium (137-145) mmol/L Potassium (3.4-5.1) mmol/L Chloride (98-107) mmol/L Carbon Dioxide (22-32) mmol/L BUN (7-17) mg/dL Creatinine (0.52-1.04) mg/dL Estimated GFR (>60) mL/min BUN/Creatinine Ratio (6-22) Glucose (70-100) mg/dL Calcium (8.4-10.2) mg/dL Total Creatine Kinase (30-135) U/L Influenza A & B (PCR) Negative (Negative) Imaging Data Chest x-ray: Radiologist's impression: [address] [address] XRay Report Signed Patient: Yumiko Madrigal LMR#: [id number] : 1995Acct:[id number] Age/Sex: 23 / FDate of Service: 01/30/19 Loc: ED Accession Number: [id number] Procedure: XR chest 2V Ordering Provider: Jesse Walden D.O. PROCEDURE: XR CHEST 2V INDICATIONS: heart racing, shortness of breath TECHNIQUE: 2 views of the chest were acquired. COMPARISON: None. FINDINGS: Surgical changes and devices: None. Lungs and pleura: Lungs are clear. No pleural effusions or pneumothorax. Mediastinum: Mediastinal contours are normal. Heart size is normal. Bones and chest wall: No suspicious bony abnormalities. Soft tissues appear unremarkable. IMPRESSION: No acute disease. Dictated by: Martinez Moon M.D. on 01/30/2019 at 20:18 Approved by: Martinez Moon M.D. on 01/30/2019 at 20:18 ECG Data Attestation: I personally reviewed and interpreted this ECG as follows: (Normal sinus rhythm with rate 68, normal axis) <Jesse Walden DO - Last Filed: 01/31/19 02:08> Lab Data Lab Results 01/30/19 01/30/19 01/30/19 Range/Units 20:30 20:30 20:30 WBC 7.8 (4.5-11.0) X10^3/uL RBC 4.46 (4.0-5.2) X10^6/uL Hgb 13.1 (12.0-16.0) g/dL Hct 39.0 (36-46) % MCV 87.4 (80-100) fL MCH 29.4 (26-34) PG MCHC 33.7 (30-36) % RDW 12.6 (11.6-14.8) % Plt Count 320 (150-400) X10^3/uL Neut % (Auto) 56.4 (50-75) % Lymph % (Auto) 37.4 (25-40) % [place] % (Auto) 4.7 (3-14) % Eos % (Auto) 0.8 L (2-4) % Baso % (Auto) 0.7 (0-2) % Neut # (Auto) 4400 (9145-7492) /uL Lymph # (Auto) 2900 (3738-9670) /uL [place] # (Auto) 400 (0-900) /uL Eos # (Auto) 100 (0-450) /uL Baso # (Auto) 100 (0-100) /uL D-Dimer < 200 (<230) ng/mL Sodium 138 (137-145) mmol/L Potassium 3.8 (3.4-5.1) mmol/L Chloride 105 (98-107) mmol/L Carbon Dioxide 22 (22-32) mmol/L BUN 8 (7-17) mg/dL Creatinine 0.70 (0.52-1.04) mg/dL Estimated GFR > 60.0 (>60) mL/min BUN/Creatinine Ratio 11.4 (6-22) Glucose 88 (70-100) mg/dL Calcium 9.4 (8.4-10.2) mg/dL Total Creatine Kinase 180 H (30-135) U/L Influenza A & B (PCR) (Negative) 01/30/19 Range/Units 20:35 WBC (4.5-11.0) X10^3/uL RBC (4.0-5.2) X10^6/uL Hgb (12.0-16.0) g/dL Hct (36-46) % MCV (80-100) fL MCH (26-34) PG MCHC (30-36) % RDW (11.6-14.8) % Plt Count (150-400) X10^3/uL Neut % (Auto) (50-75) % Lymph % (Auto) (25-40) % [place] % (Auto) (3-14) % Eos % (Auto) (2-4) % Baso % (Auto) (0-2) % Neut # (Auto) (6378-3533) /uL Lymph # (Auto) (1132-1371) /uL [place] # (Auto) (0-900) /uL Eos # (Auto) (0-450) /uL Baso # (Auto) (0-100) /uL D-Dimer (<230) ng/mL Sodium (137-145) mmol/L Potassium (3.4-5.1) mmol/L Chloride (98-107) mmol/L Carbon Dioxide (22-32) mmol/L BUN (7-17) mg/dL Creatinine (0.52-1.04) mg/dL Estimated GFR (>60) mL/min BUN/Creatinine Ratio (6-22) Glucose (70-100) mg/dL Calcium (8.4-10.2) mg/dL Total Creatine Kinase (30-135) U/L Influenza A & B (PCR) Negative (Negative) Discharge Plan Departure Patient Disposition: Home Clinical Impression: Medication reaction Qualifiers: Encounter type: initial encounter Qualified Code(s): T50.905A - Adverse effect of unspecified drugs, medicaments and biological substances, initial encounter Mild reactive airways disease Qualifiers: Asthma persistence: intermittent Asthma complication type: with acute exacerbation Qualified Code(s): J45.21 - Mild intermittent asthma with (acute) exacerbation Discharge Date/Time: 01/30/19 21:40 Interventions: ED Discharge Assessment Last Done: 01/30/19 21:40 Instructions: DI for Reactive Airway Disease-Adult Activity Restrictions/Additional Instructions: I think that your symptoms are likely related to the antibiotics since they started the day after you began taking it. Please discontinue the moxifloxacin. Use the inhaler as often as you need for tight chest since it was helpful. I think it is likely that your muscle and tendon achiness could be caused by the antibiotic, so hopefully that will resolve once you are off of it for a few days. You can take ibuprofen as needed. Please follow up with JULISA Merchant in the next few days to determine your level of improvement and also whether to start another antibiotic for your sinuses or whether to get a CT scan 1st as she had discussed with you. As we talked about, should return if you have any acutely worsened Prescriptions: No Action Tizanidine See Patient Comments .ROUTE .COMPLEX RF: 0 Metaxalone See Patient Comments .ROUTE .COMPLEX RF: 0 progesterone micronized PO RF: 0 moxifloxacin 400 mg tablet 400 mg PO DAILY Qty: 10 RF: 0 meloxicam [Mobic] 7.5 mg tablet 7.5 mg PO DAILY PRN (Reason: pain) Qty: 20 RF: 0 Referrals: Rachel Merchant PA-C [Primary Care Provider] - <Jesse Walden DO - Last Filed: 01/31/19 02:08> Cosign ED Attending Christopher Attestation: I was immediately available in the department for consultation. Documentation has been reviewed. I agree with assessment and plan.
[2019-01-30 20:37] LABS: Add Manual Diff / Slide Review NO; Basophils Absolute Auto 100 /uL (0-100); Basophils Percent Auto 0.7 % (0-2); Eosinophils Absolute Auto 100 /uL (0-450); Eosinophils Percent Auto 0.8 % (2-4); Hemoglobin 13.1 g/dL (12.0-16.0); Lymphocytes Absolute Auto 2900 /uL (1100-4500); Lymphocytes Percent Auto 37.4 % (25-40); Mean Corpuscular HGB Conc 33.7 % (30-36); Mean Corpuscular Hemoglobin 29.4 PG (26-34); Mean Corpuscular Volume 87.4 fL (80-100); Monocytes Absolute Auto 400 /uL (0-900); Monocytes Percent Auto 4.7 % (3-14); Neutrophils Absolute Auto 4400 /uL (1500-7000); Neutrophils Percent Auto 56.4 % (50-75); Platelet Count 320 X10^3/uL (150-400); Red Blood Cell Count 4.46 X10^6/uL (4.0-5.2); Red Cell Distribution Width 12.6 % (11.6-14.8); White Blood Cell Count 7.8 X10^3/uL (4.5-11.0)
[2019-01-30 20:47] LABS: BUN Creatinine Ratio 11.4 (6-22); Blood Urea Nitrogen 8 mg/dL (7-17); Calcium 9.4 mg/dL (8.4-10.2); Carbon Dioxide 22 mmol/L (22-32); Chloride 105 mmol/L (98-107); Creatine Kinase 180 U/L (30-135); Estimated Glomerular Filt Rate > 60.0 mL/min (>60); Glucose 88 mg/dL (70-100); HEMOLYSIS < 15 (0-50); Potassium 3.8 mmol/L (3.4-5.1); Sodium 138 mmol/L (137-145)
[2019-01-30 20:50] LABS: D Dimer < 200 ng/mL (<230)
[2019-01-30 20:55] LABS: Influenza A and B by PCR Rapid Negative (Negative)
[2019-01-30 21:40] VITALS: BP 118/72; PULSE 91; RESP 18; O2SAT 99
== END 2019-01-30 21:40 | disposition home or self-care (01) ==
PROVIDERS: Emergency Provider Internal Medicine; PCP Physician Assistant
DX: T50.905A Adverse effect of unspecified drugs, medicaments and biological substances, initial encounter (principal); J45.21 Mild intermittent asthma with (acute) exacerbation
CPT/HCPCS: 71046; 80048; 82550; 85025; 85379; 87400; 93005; 94640; 99282; 99285; J7613

== ENCOUNTER → 2019-02-07 06:45 | Outpatient (CLI) | payer OTHER, SELFPAY ==
--- NOTE | 2019-02-07 07:07 | DI.CT.S_ITS ---
PROCEDURE: CT SINUS SCREEN WO CON INDICATIONS: Recurrent sinus headaches TECHNIQUE: Noncontrast 3.0 mm axial images acquired from the frontal sinuses to the mid-sella, with coronal and sagittal reformats. For radiation dose reduction, the following was used: automated exposure control, adjustment of mA and/or kV according to patient size. COMPARISON: None. FINDINGS: Image quality: Excellent. Maxillary Sinuses: Mucous retention cyst or polyp present within the left maxillary sinus. Minimal mucosal thickening present in the floor of right maxillary antrum Ethmoid Air Cells: No bony remodeling or destruction. Sinuses are clear. Sphenoid Sinuses: No bony remodeling or destruction. Sinuses are clear. Frontal Sinuses: Hypoplastic/aplastic appearance Ostiomeatal Complexes: Ostiomeatal complexes are patent. No Inse cells. Miscellaneous: Visualized intra-orbital contents are normal. Tiny right roque bullosa, sub-5 mm in size. Rightward nasal septal deviation. IMPRESSION: Mild bilateral maxillary sinus disease, left greater than right. Tiny right roque bullosa. Rightward nasal septal deviation. Dictated by: Elroy Sauer M.D. on 02/07/2019 at 10:04 Approved by: Elroy Sauer M.D. on 02/07/2019 at 10:07
== END ==
PROVIDERS: PCP Physician Assistant; Visit Provider Physician Assistant
DX: J32.0 Chronic maxillary sinusitis (principal); J34.2 Deviated nasal septum; R51 Headache
CPT/HCPCS: 70486

== ENCOUNTER → 2019-03-14 08:00 | Outpatient (CLI) | payer OTHER, SELFPAY ==
--- NOTE | 2019-03-14 09:03 | DIET.PN ---
Met for an initial nutrition consultation. Reports digestive problems all her life with bloating and frequent constipation. Symptoms increased drastically following 4 pelvic/abdominal surgeries in the last few years. Is now doing P.T. but therapist states her bowels/muscles on the left side are very tight and thinks getting diet straightened out may help improve P.T. 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 Dx: Chronic constipation, Hx: endometriosis-post surgery, ovarian cysts, interstitial cystitis Sx: frequent constipation, pain, bloating, cramping Assessment: Question whether constipation r/t inadequate fiber vs dysmotility. Pt does appear to eat a lot of fiberous foods and a lot of water, so suspect dysmotility. It's possible that she has IBS and that specific fermentable carbohydrates, as well as stress, may affect symptoms. Intervention: Provided ed on IBS-constipation dominant. Provided ed on FODMAP diet and gave [employer] handouts on IBS in general and 12 Tips for mananging constipation. Plan: Pt ordered book, IBS, Free at last, will begin FODMAP elimination diet - follow for 2 weeks then f/u w/me for evaluation and next steps.
== END ==
PROVIDERS: PCP Physician Assistant; Visit Provider Physician Assistant
DX: K59.09 Other constipation (principal); Z98.890 Other specified postprocedural states; N83.209 Unspecified ovarian cyst, unspecified side; N30.10 Interstitial cystitis (chronic) without hematuria
CPT/HCPCS: 97802

== ENCOUNTER → 2019-04-11 08:29 | Outpatient (CLI) | payer OTHER, SELFPAY ==
--- NOTE | 2019-04-11 16:01 | DIET.PN ---
F/u Consultation. Reports she kept a food journal but it was destroyed by a toddler. Did get the book on IBS/FODMAP diet and followed the elimination diet as best she could. Noted decreased bloating with diet, but has had more problem w/constipation. After being on elim diet for couple weeks had a burger with bun and felt horrible - incr bloating, pain. also having pain on left side that is worsening - has appt to see PCP about this. States she's fatigued a lot and has autoimmune allergies that tend to shift over time. DX: GI issues, poss IBS Assessment: FODMAP elim diet appears to have made improvment in some symptoms. Current lit suggests elim diet for 2 months if any improvement in symptoms; then start the challenge phase. Intervention: Reviewed low FODMAP foods that are high in fiber. Encouraged to eat more of these along with plenty of water (which she does already). Provided ed on natural supplements that may help with autoimmune disorders/fatigue - lipid replacment therapy, CoQ-10, Carnitine (all these are packaged in [employer] product). REsearched the [employer] and found it contains some FODMAPS- specifically, regis stem powder and FOS which are both in the Fructan category of fodmaps. also contains soy, which may be questionalble. Plan: Continue elim diet, consider [employer] later if finds tolerates the fructans. Will call for f/u when schedule allows - approx 1 month. I told pt I will be retired by then, but she will be able to f/u w/new Clarita VARELA.
== END ==
PROVIDERS: PCP Physician Assistant; Visit Provider Physician Assistant
DX: R14.0 Abdominal distension (gaseous) (principal); K58.9 Irritable bowel syndrome, unspecified
CPT/HCPCS: 97803

== ENCOUNTER → 2019-04-19 08:46 | Outpatient (CLI) | payer OTHER, SELFPAY ==
[2019-04-19 09:43] LABS: Add Manual Diff / Slide Review NO; Basophils Absolute Auto 100 /uL (0-100); Eosinophils Absolute Auto 100 /uL (0-450); Eosinophils Percent Auto 2.1 % (2-4); Hematocrit 38.7 % (36-46); Hemoglobin 13.5 g/dL (12.0-16.0); Lymphocytes Absolute Auto 1500 /uL (1100-4500); Lymphocytes Percent Auto 28.3 % (25-40); Mean Corpuscular HGB Conc 34.8 % (30-36); Mean Corpuscular Hemoglobin 30.2 PG (26-34); Mean Corpuscular Volume 86.7 fL (80-100); Monocytes Absolute Auto 300 /uL (0-900); Neutrophils Absolute Auto 3300 /uL (1500-7000); Neutrophils Percent Auto 62.6 % (50-75); Platelet Count 308 X10^3/uL (150-400); Red Blood Cell Count 4.47 X10^6/uL (4.0-5.2); Red Cell Distribution Width 12.1 % (11.6-14.8); White Blood Cell Count 5.2 X10^3/uL (4.5-11.0)
[2019-04-19 09:53] LABS: Alanine Aminotransferase 18 IU/L (9-52); Albumin 4.7 g/dL (3.5-5.0); Albumin Globulin Ratio 1.7 (1.0-2.8); Alkaline Phosphatase 74 U/L (38-126); Aspartate Aminotransferase 20 IU/L (14-36); BUN Creatinine Ratio 24.3 (6-22); Bilirubin Total 0.6 mg/dL (0.2-1.3); Blood Urea Nitrogen 17 mg/dL (7-17); Calcium 9.5 mg/dL (8.4-10.2); Carbon Dioxide 30 mmol/L (22-32); Chloride 101 mmol/L (98-107); Estimated Glomerular Filt Rate > 60.0 mL/min (>60); Globulin 2.7 g/dL (1.7-4.1); Glucose 81 mg/dL (70-100); HEMOLYSIS < 15 (0-50); Potassium 5.1 mmol/L (3.4-5.1); Sodium 138 mmol/L (137-145); Total Protein 7.4 g/dL (6.3-8.2)
[2019-04-19 10:22] LABS: Free T3, Triiodothyronine Free 4.02 pg/mL (2.77-5.27)
[2019-04-19 10:27] LABS: Free T4, Direct Thyroxine 0.89 ng/dL (0.78-2.19)
[2019-04-19 10:37] LABS: Thyroid Stimulating Hormone 0.87 uIU/mL (0.47-4.68)
== END ==
PROVIDERS: PCP Physician Assistant; Visit Provider Physician Assistant
DX: K59.00 Constipation, unspecified (principal); N92.6 Irregular menstruation, unspecified; R10.13 Epigastric pain; R14.0 Abdominal distension (gaseous)
CPT/HCPCS: 36415; 80053; 84439; 84443; 84481; 85025

== ENCOUNTER → 2019-05-02 07:52 | Outpatient (CLI) | payer OTHER, SELFPAY ==
[2019-05-02 09:52] LABS: HCG Quantitative /Beta subunit 321.82 mIU/mL
== END ==
PROVIDERS: PCP Physician Assistant; Visit Provider Obstetrics & Gynecology
DX: N91.2 Amenorrhea, unspecified (principal); K59.00 Constipation, unspecified; N92.6 Irregular menstruation, unspecified; R10.13 Epigastric pain; R14.0 Abdominal distension (gaseous)
CPT/HCPCS: 36415; 84702; 86677

== ENCOUNTER → 2019-05-04 07:55 | Outpatient (CLI) | payer OTHER, SELFPAY ==
[2019-05-04 09:51] LABS: HCG Quantitative /Beta subunit 899.37 mIU/mL
== END ==
PROVIDERS: PCP Physician Assistant; Visit Provider Obstetrics & Gynecology
DX: N91.2 Amenorrhea, unspecified (principal)
CPT/HCPCS: 36415; 84702

== ENCOUNTER → 2019-05-09 08:53 | Outpatient (CLI) | payer OTHER, SELFPAY ==
[2019-05-09 10:38] LABS: HCG Quantitative /Beta subunit 9563.9 mIU/mL
== END ==
PROVIDERS: PCP Physician Assistant; Visit Provider Obstetrics & Gynecology
DX: N91.2 Amenorrhea, unspecified (principal)
CPT/HCPCS: 36415; 84702

== ENCOUNTER → 2019-06-12 08:13 | Outpatient (CLI) | payer OTHER, SELFPAY ==
[2019-06-12 10:10] LABS: Appearance Urine UA CLOUDY; Bilirubin Urine UA NEGATIVE (NEGATIVE); Color Urine UA ORANGE; Glucose Urine UA NEGATIVE (Negative); Ketones Urine UA NEGATIVE (NEGATIVE); Leukocyte Esterase Urine UA NEGATIVE (NEGATIVE); Nitrite Urine UA NEGATIVE (Negative); Occult Blood Urine UA NEGATIVE (Negative); Protein Urine UA TRACE (Negative); Urobilinogen Urine UA 0.2 E.U./dL (0.2); pH Urine UA 7.5 (4.5-8.0)
[2019-06-12 10:12] LABS: Add Manual Diff / Slide Review NO; Basophils Absolute Auto 100 /uL (0-100); Basophils Percent Auto 0.9 % (0-2); Eosinophils Absolute Auto 0 /uL (0-450); Eosinophils Percent Auto 0.6 % (2-4); Hematocrit 35.9 % (36-46); Hemoglobin 12.5 g/dL (12.0-16.0); Lymphocytes Absolute Auto 1200 /uL (1100-4500); Lymphocytes Percent Auto 19.1 % (25-40); Mean Corpuscular HGB Conc 34.7 % (30-36); Mean Corpuscular Hemoglobin 30.1 PG (26-34); Mean Corpuscular Volume 86.7 fL (80-100); Monocytes Absolute Auto 200 /uL (0-900); Monocytes Percent Auto 3.8 % (3-14); Neutrophils Absolute Auto 4900 /uL (1500-7000); Neutrophils Percent Auto 75.6 % (50-75); Platelet Count 292 X10^3/uL (150-400); Red Blood Cell Count 4.14 X10^6/uL (4.0-5.2); Red Cell Distribution Width 12.3 % (11.6-14.8); White Blood Cell Count 6.5 X10^3/uL (4.5-11.0)
[2019-06-12 11:04] LABS: Hepatitis B Surface Antigen NEGATIVE s/c (NEGATIVE); Rubella Antibody IgG 74.2 IU/mL (>15)
[2019-06-12 11:30] LABS: Hep C Virus Ab w/Reflex Quant NEGATIVE s/c (NEGATIVE)
[2019-06-14 14:41] LABS: Varicella IgG Antibody < 135.00 Index (< 135.00)
[2019-06-14 16:57] LABS: RPR Screen Nonreactive (Nonreactive)
== END ==
PROVIDERS: PCP Physician Assistant; Visit Provider Obstetrics & Gynecology
DX: Z34.91 Encounter for supervision of normal pregnancy, unspecified, first trimester (principal)
CPT/HCPCS: 36415; 80055; 81003; 86787; 86803; 86850; 86900; 86901; 87086

== ENCOUNTER → 2019-07-13 13:14 | Outpatient (CLI) | payer OTHER, SELFPAY ==
--- NOTE | 2019-07-13 13:15 | DI.US.S_ITS ---
PROCEDURE: US OB LIMITED INDICATIONS: R/O placental abruption after fall OUTSIDE/PRIOR DATING DATA: Last menstrual period (LMP): 03/28/19. LMP-based estimated date of delivery (CONNOR): 01/02/20. First dating scan (date and location): 06/19/19. Estimated date of delivery (CONNOR) from first dating scan: 01/07/20. TECHNIQUE: Real-time scanning was performed of the fetus, with image documentation and biometric measurements. Endovaginal scanning: None needed for this study COMPARISON: None. FINDINGS: General: A single living intrauterine gestation is present. Presentation: Variable at this time. Placenta: Placental position is posterior, without previa. Amniotic fluid index: Normal. heart rate: 153 beats per minute. Maternal cervical canal: 3.8 cm long. Normal lower limit is 2.5 cm. Other: No evidence of abruption. Relatively low lying placental edge which should be further assessed during anatomic survey study recommended to be obtained at 21 weeks gestation. IMPRESSION: No sign of abruption. Relatively low lying placenta at this early stage of the the placental relationship to the internal os of the cervical canal is expected to change appreciably. For this reason attention to that area on followup anatomic survey at 21 weeks station is recommended. Dictated by: Fracisco Westbrook M.D. on 07/13/2019 at 14:37 Approved by: Fracisco Westbrook M.D. on 07/13/2019 at 14:42
== END ==
PROVIDERS: PCP Physician Assistant; Visit Provider Obstetrics & Gynecology
DX: O26.899 Other specified pregnancy related conditions, unspecified trimester (principal); R10.9 Unspecified abdominal pain; Z3A.15 15 weeks gestation of pregnancy; W10.8XXA Fall (on) (from) other stairs and steps, initial encounter
CPT/HCPCS: 76815

== ENCOUNTER → 2019-08-02 12:14 | Outpatient (CLI) | payer OTHER, SELFPAY ==
[2019-08-15 14:44] LABS: AFP, Serum 54.1 ng/mL; Calc Gestational Age 17.9; Cigarette Smoker No; Donated Egg NOT GIVEN; Donor Egg Age NOT GIVEN; Estriol, Free 1.25 ng/mL; Inhibin A, Dimeric 154 pg/mL; Maternal Ethnicity White/Caucasian; Maternal Weight 142 lbs; Number of Fetuses 1; Previous Pregnancy Down Syndro NO; hCG, Serum 22.9 IU/mL
== END ==
PROVIDERS: PCP Physician Assistant; Visit Provider Obstetrics & Gynecology
DX: Z34.02 Encounter for supervision of normal first pregnancy, second trimester (principal); Z3A.17 17 weeks gestation of pregnancy
CPT/HCPCS: 36415; 82105; 82677; 84702; 86336

== ENCOUNTER → 2019-08-18 09:19 | Outpatient (CLI) | payer OTHER, SELFPAY ==
--- NOTE | 2019-08-18 09:20 | DI.US.S_ITS ---
PROCEDURE: US OB >= 14 WEEKS FETUS INDICATIONS: 20 WEEK ANATOMY OUTSIDE/PRIOR DATING DATA: Last menstrual period (LMP): 03/28/19. LMP-based estimated date of delivery (CONNOR): 01/02/20. First dating scan (date and location): 06/14/19. Estimated date of delivery (CONNOR) from first dating scan: 01/07/20. TECHNIQUE: Real-time scanning was performed of the fetus, with image documentation and biometric measurements. Endovaginal scanning: Not performed. COMPARISON: [facility], , OB >= 14 WEEKS FETUS, 08/02/2019, 12:07. FINDINGS: General: A single living intrauterine gestation is present. Presentation: Vertex Placenta: Placental position is posterior, without previa. Amniotic fluid index: 10.4 cm, normal range is 5-24 cm. heart rate: 152 beats per minute. Maternal cervical canal: 3.2 cm long. Normal lower limit is 2.5 cm. biometrics: Biparietal diameter: 4.6 cm, 20 weeks, zero day Head circumference: 16.7 cm, 19 weeks and Abdominal circumference: 13.8 cm, 19 weeks, one day Femur length: 3 cm, 19 weeks, one day Estimated gestational age from initial scan: 19 week, 5 days Composite gestational age from present scan: 9 weeks, 2 days Estimated weight and percentile: 279 g, 90% Measurement variability for biometric dating: +/- 7 days from 14 weeks to 15 weeks 6 days gestation, +/- 10 days from 16 weeks to 21 weeks 6 days gestation, +/- 2 weeks from 22 weeks to 27 weeks 6 days gestation, +/- 3 weeks for 28 weeks gestation or later. weight reference: 4500 g or EFW >90/95% is considered macrosomia or large for gestational age. EFW <10% is small for gestational age. EFW 5% or less is considered intra-uterine growth restriction. Anatomic survey: Neuro: Ventricles are non-dilated at less than 10 mm. Cisterna magna is normal at 3-11 mm. Cerebellum is normal in size and morphology. Nuchal skin fold: Normal at less than 6 mm between 14-21 weeks gestational age. Face: Nose and lips, facial profile are not well seen. Spine: No evidence for spina bifida. Heart: 4-chambered heart is present. Right ventricular outflow tract contains a echogenic focus. Diaphragm: Diaphragm is intact. Stomach: Left-sided stomach is present. Kidneys: No hydronephrosis. Normal is less than 5 mm in 2nd trimester, less than 7 mm in 3rd trimester. Cord: 3-vessel cord has orthotopic insertion. Bladder: Normal in size. Extremities: All 4 extremities identified. IMPRESSION: 1. Single live intrauterine . Normal growth. Normal amount of amniotic fluid. 2. Facial profile, the nose, lips and orbits are not well visualized on this study due to position. 3. Echogenic focus is seen within left ventricular outflow tract. Clinical correlation and sonographic followup is recommended. Rest of the anatomy is unremarkable. Dictated by: Arun Hicks M.D. on 08/18/2019 at 11:09 Approved by: Arun Hicks M.D. on 08/18/2019 at 11:15
== END ==
PROVIDERS: PCP Physician Assistant; Visit Provider Obstetrics & Gynecology
DX: Z34.02 Encounter for supervision of normal first pregnancy, second trimester (principal); Z3A.19 19 weeks gestation of pregnancy
CPT/HCPCS: 76811

== ENCOUNTER → 2019-10-04 09:40 | Outpatient (CLI) | payer OTHER, SELFPAY ==
[2019-10-04 11:28] LABS: GTT (PREG) 1 Hour PP 50gm Dose 99 mg/dL (76-139)
[2019-10-04 11:34] LABS: Hematocrit 29.8 % (36-46); Hemoglobin 10.2 g/dL (12.0-16.0)
== END ==
PROVIDERS: PCP Physician Assistant; Visit Provider Obstetrics & Gynecology
DX: Z34.02 Encounter for supervision of normal first pregnancy, second trimester (principal); Z3A.25 25 weeks gestation of pregnancy
CPT/HCPCS: 36415; 82950; 85014; 85018

== ENCOUNTER 2019-10-16 11:00 | Outpatient (RCR) | payer OTHER, SELFPAY ==
--- NOTE | 2019-02-23 16:57 | PT.OIE ---
Current Diagnoses Constipation, unspecified (02/23/19) Pain in right hip (02/23/19) Pain in left hip (02/23/19) Muscle weakness (generalized) (02/23/19) Urge incontinence (02/23/19) Vaginismus (02/23/19) Other symptoms and signs involving the musculoskeletal system (02/23/19) Past Medical History (Last Updated 01/30/19 @ 20:22 by Tete Daly PA-C) Ovarian cyst (Acute) Dyspareunia (Chronic Unknown) Endometriosis (Chronic) Past Surgical History (Last Reviewed 06/16/18 @ 04:28 by Faye Wilson DO) History of third molar tooth extraction Status post laparoscopy (07/20/16) Status post laparoscopy (10/29/17) Provider Visit Care Team Role Provider Type Rachel Merchant PA-C Primary Care Provider Advanced Traffic Supervisor Specialty: Medical Address: [address] [place] [address], [id number] Email: [email or web address] FLAKITA Casillas Attending Provider Non-Staff Specialty: Nursing Address: [address] [place] [address], [id number] Email: Physical Therapy Initial Evaluation PT-OP-A Visit Information Start: 02/20/19 17:49 Freq: Status: Active Protocol: Document 02/23/19 09:09 LRN (Rec: 02/23/19 10:09 LRN [id number]) Out-Patient Physical Therapy Visit Information Visit Information Visit Type Initial Evaluation Visit Start Time 09:09 Visit Stop Time 10:09 Total Visit Minutes 60 Visit Number 1 Number of SINGE WINDER Visits 0 Evaluation Information Evaluation Date 02/23/19 Precautions Precautions Very fragile external pelvic floor in area of transverse perineum. Multiple endometriosus ablation surgeries. Presacral neurectomy 07/2018. PT-OP-B Current Condition Start: 02/20/19 17:49 Freq: Status: Active Protocol: Document 02/23/19 09:09 LRN (Rec: 02/23/19 10:09 LRN [id number]) Current Condition History of Current Condition Onset Date 2 yrs ago Current Complaints Pelvic floor dysfunction, pain spasms, syncing contractions History of Current Condition Pelvic Floor (PF) pain started 3 yrs ago, but the current type of PF pain started ~ 2yrs ago that has persisted. She reports having rectum spasms before the 2nd endometriosis ablation surgery in 10/2017 that was 2 cysts impinging on rectum canal, but now she reports its a big problem. She states the cysts are a reoccuring problem with menstrual cycle; therefore the pain is a reoccuring problem as well. Her menstrual cycles are irregular; therefore her pain onset is irregular with no pattern noted. She reports suffering from chronic constipation that has worsened in the last few years. She reports daily urine leakage of a few drops and has to change panty liners 2-3 times a day. She states abdomen stretching sometimes ilicits the lower abdominal and PF pain. Pt prefers to defer anal assessment at this time and will try to have records sent from [facility] to [facility]. Prior Treatments and Tests Pelvic floor physical therapy at [facility] that was interrupted due to health problems of the physical therapist. Treatment Goals Patient/Caregiver Goals Pt goal is to get everything back into place, meaning to have her muscles work in a normal sequence, and to learn how to manage her pain and spasms in the rectum and lower abdomen. 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 Current Functional Impairments (Reported) Functional Limitations- ADL's Pain limits ability to get out of bed ocassionally. Functional Limitations- Work/School Sometimes not able to make it to work due to pain. 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 Therapy/Recovery Pt report of: Pt pelvic floor health is very dry with frequent tearing. Constipation. Endometriosis Ablation surgery x 2 in 2015, 2016 (removing 4 areas of endometriosis). Presacral neurectomy (07/2018). Interstitial Cystitis PT-OP-C Subjective Start: 02/20/19 17:49 Freq: Status: Active Protocol: Document 02/23/19 09:09 LRN (Rec: 02/23/19 16:39 LRN [id number]) Patient Questionnaires Pelvic Pain and Urgency/Frequency Patient Symptom Scale Pelvic Pain Score 20 OP-PT Pain Assessment Pain Assessment Grid Paper Pain Assessment Grid Completed Yes Location Right Lower Anterior Abdomen Pain Location Details R abdominal pain across abdomen at pubic bone level, groin Intensity 8 Scale Used Numeric (1 - 10) Description Aching Left Lower Anterior Abdomen Pain Location Details L abdominal pain medial to ASIS, across abdomen at pubic bone level, groin Intensity 8 Scale Used Numeric (1 - 10) Description Aching Sharp Frequency Intermittent PT-OP-I Pelvic Floor Start: 02/20/19 17:49 Freq: Status: Active Protocol: Document 02/23/19 09:09 LRN (Rec: 02/23/19 10:09 LRN [id number]) Pelvic Floor Assessment Urine Urinary Symptoms Dysuria Other Urinary Symptoms Light urinary leakage. Sometimes strains to urinate. Sometimes bladder feels full after urinating. Leakage Size Small Leakage Cause Exercise Leaks Per Day 1 Voiding Frequency 10x/day Nocturia 1-2x/day Pads Used In 24 Hours 2-3 Urine Pad Type Panty Liner Bowel Bowel Surgery No Bowel Symptoms Constipation Pain Pelvic Clock Pelvic Clock 12-3 Hypertonic Tenderness Pelvic Clock 3-6 Hypertonic Tightness Pelvic Clock 6-9 Hypertonic Tenderness Tightness Pelvic Clock 9-12 Hypertonic Tenderness Inter-Rectal Assessment Deferred. Pt would rather have previous therapy records sent from [facility]. Prolapse Cystocele Grade 2 Rectocele Grade 2 Perineal Descent Resting Absent Bearing Present Contraction Ability Voluntary Contraction Weak Voluntary Relaxation Absent Manual Muscle Testing Left 0 Manual Muscle Testing Right 0 Manual Muscle Testing Anterior 3 Manual Muscle Testing Posterior 1 Muscle Endurance (Seconds) 1 Number of Quick Contractions In 10 3 Seconds Comments Pelvic Floor Comments PF is very dry. Frequent tearing at 6 O'Clock of the PF . Pt tender at the transverse perineal muscle and the Ishiocavernosus and Bulbocavernosus. PT-OP-K Range of Motion Start: 02/20/19 17:49 Freq: Status: Active Protocol: Document 02/23/19 09:09 LRN (Rec: 02/23/19 10:09 LRN [id number]) Hip Goniometric Range of Motion Hip Measured in Degrees Right Passive Testing Position Supine Straight Leg Raise 65 Abduction 40 Internal Rotation 45 External Rotation 40 Left Passive Hip ROM WFL No Testing Position Supine Straight Leg Raise 80 Abduction 50 Internal Rotation 40 External Rotation 60 Hip ROM Limitations Hip ROM Limitations Soft Tissue Tightness Pain Comments Pain in L lower abdominal quadrant pain with PSLR right, R hip IR , L hip AD. PT-OP-M Strength Start: 02/20/19 17:49 Freq: Status: Active Protocol: Document 02/23/19 09:09 LRN (Rec: 02/23/19 10:09 LRN [id number]) Hip Strength Hip Manual Muscle Testing Right Flexion (L2) 4+ Good+ Extension (S1) 5 Normal Abduction 5 Normal Adduction 5 Normal External Rotation 5 Normal Internal Rotation 4- Good- Comments Pain with testing of: L hip ext at L lower abdominal quadrant L hip AD at L lower abdominal quadrant Left Flexion (L2) 4+ Good+ Extension (S1) 5 Normal Abduction 4+ Good+ Adduction 2+ Poor+ External Rotation 4- Good- Internal Rotation 3+ Fair+ PT-OP-Q Treatments Start: 02/20/19 17:49 Freq: Status: Active Protocol: Document 02/23/19 09:09 LRN (Rec: 02/23/19 15:12 LRN [id number]) Therapeutic Exercises Supine Exercises Kegel Long Holds Supine Exercise Name Kegel Long Holds Comments Pt able to do in isolation of gluteal and hip AD muscles. Kegel Quick Flicks Supine Exercise Name Kegel Quick Flicks Comments Pt able to do in isolation of gluteal and hip AD muscles. Self-Care/Home Management Treatment Education Patient Education Home Exercise Program Activities Self-Care/Home Management Activities Discussed and I/S pt in completing Bladder Diary. I/S pt in Happy Baby Pose stretch for HEP. I/S pt in PF contraction in isolation of abdominal muscles . Reviewed with pt her previous HEP (Neutral/Cow, TA, TA w/SLR , Kegel). PT-OP-T Assessment and Plan Start: 02/20/19 17:49 Freq: Status: Active Protocol: Document 02/23/19 09:09 LRN (Rec: 02/23/19 10:09 LRN [id number]) Physical Therapy Assessment Rehab Potential Rehabilitation Potential Good Evaluation Complexity Number of Personal Factors/Comorbidities 3 or More Number of Body Systems Impaired 3 Clinical Presentation at Evaluation Evolving Impairments Impairments Activity Tolerance Pain Posture ROM Soft Tissue Mobility Strength Other Impairments Poor tissue integrity of Pelvic Floor. Other Concerns Age Related Concerns Impact on family and work. Barriers to Rehabilitation Chronicity of condition. Surgical history. 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 Goals L Lower Abdominal Quadrant Pain Impairment L lower abdominal quadrant pain with passive & active hip ROM Paper Sample Clerk Goal (LTG) Improve bilateral hip mobility and normalize hip strength without pain onset. LTG Duration 05/26/19 Pelvic Floor tightness and pain Impairment Increased PF tightness with pain on palpation Senior Care Goal (LTG) Decreased PF tightness with pt able to urinate and defecate with less to no pain. LTG Duration 05/26/19 Hip mobility Impairment Decreased hip rotation & AB mobility due to L lower abdominal quadrant pain Paper Sample Clerk Goal (LTG) Pt will demonstrate improved hip mobility with lessening of pain with exercise activity and nighttime activities. LTG Duration 04/28/19 Pelvic Floor Pain Impairment Pain at Ishiocavernosus & Bulbocavernosus to palpation Short Term Goal (STG) Pt will be educated in proper vulva care. STG Duration 03/13/19 Bladder dysfunction Impairment Urination frequency of 10x/day and 1-2x/night. Short Term Goal (STG) Pt will be educated in urinary delay technique. Bladder Diary will be reviewed with urinary recommendations made as appropriate after bladder diary review. STG Duration 02/27/19 Senior Care Goal (LTG) Decrease of frequency of urination to 5-7x/day and 0-1x /night. Bowel dysfunction Impairment Constipation Short Term Goal (STG) Pt will be educated in proper bowel care (message and diet to be discussed). STG Duration 03/06/19 Paper Sample Clerk Goal (LTG) Pt will report decrease in constipation onset. LTG Duration 03/24/19 HEP Impairment Pt has been started on HEP but lacks full self care HEP Senior Care Goal (LTG) Pt will be educated and independent on a self care HEP . Pt will be able to manage her abdominal and PF pain to a tolerable level with a HEP. LTG Duration 05/26/19 Assessment Summary Assessment Pt presents with soft tissue dysfunction of the abdominal a pelvic region as well as decreased hip mobility and strength limited by pain and soft tissue tightness. The pt appears to have core weakness with R rotation or pelvic L rotation. This asymmetry may be hindering her ability to stabilize the pelvic region resulting in pain with hip mobility. She is very tender in her PF region and may have weakness of the PF due to her high muscle tension and inability to relax her PF. She reports a problem of chronic constipation that may be adding to her abdominal pain. She is not able to isolate a PF contraction and appears to primarily use her abdominal muscles to facilitate a PF contraction; therefore much training is needed to guide the pt towards properly contraction and relaxing her PF. The pt will benefit from skilled physical therapy 2x/week for soft tissue and manual treatments to reduce her PF pain and increased tone, as well as train the pt in performing a proper PF contraction to eliminate the overuse of her abdominal muscle in rogelio her PF. The pt will also benefit from manual therapy of pelvic and LE nerve glides to help manage her pain. It is expected due to the chronic nature of her pain that her progress will be slow and her rehabilitation time will be prolonged. Physical Therapy Plan Frequency and Duration Frequency of Treatment 2x/Week Plan of Care Start Date 02/23/19 Plan of Care End Date 05/26/19 Therapeutic Interventions Therapeutic Interventions Aquatic Therapy Home Exercise Program Joint Mobilizations Manual Therapy Neuromuscular Re-education Patient/Caregiver Education Self-Care/Home Management Soft Tissue Mobilization Taping Therapeutic Exercises Modalities Biofeedback Cold Pack/Ice Massage Electric Stimulation Hot Packs Ultrasound Next Visit Focus/Plan Next Note Type Treatment Note Next Visit Plan Possible EMG assessment with a rectal probe. Check Obturator Internus with Obturator and LE nerve glides. Review Bladder Diary, initiate education of Urinary Delay technique and provide recommendation or urinary voiding after bladder diary review. Try K-tape for L trunk rotator support. Vulvar care education and bowel massage in 2 visits. Progress to manual therapy to decreased muscle tone of L abdomen and PF and progression of HEP of hip mobility and strengthening ex's as tolerated.
--- NOTE | 2019-03-09 14:38 | PT.OTN ---
Current Diagnoses Vaginismus (03/09/19) Physical Therapy Treatment Note PT-OP-A Visit Information Start: 02/20/19 17:49 Freq: Status: Active Protocol: Document 03/09/19 09:50 LRN (Rec: 03/09/19 10:35 LRN [id number]) Out-Patient Physical Therapy Visit Information Visit Information Visit Type Treatment Note Visit Start Time 09:50 Visit Stop Time 10:35 Total Visit Minutes 45 Visit Number 2 Number of EQUIPMENT WORKER Visits 0 Evaluation Information Evaluation Date 02/23/19 Precautions Precautions Very fragile external pelvic floor in area of transverse perineum. Multiple endometriosus ablation surgeries. Presacral neurectomy 07/2018. PT-OP-B Current Condition Start: 02/20/19 17:49 Freq: Status: Active Protocol: Document 02/23/19 09:09 LRN (Rec: 02/23/19 10:09 LRN [id number]) Current Condition History of Current Condition Onset Date 2 yrs ago Current Complaints Pelvic floor dysfunction, pain spasms, syncing contractions History of Current Condition Pelvic Floor (PF) pain started 3 yrs ago, but the current type of PF pain started ~ 2yrs ago that has persisted. She reports having rectum spasms before the 2nd endometriosis ablation surgery in 10/2017 that was 2 cysts impinging on rectum canal, but now she reports its a big problem. She states the cysts are a reoccuring problem with menstrual cycle; therefore the pain is a reoccuring problem as well. Her menstrual cycles are irregular; therefore her pain onset is irregular with no pattern noted. She reports suffering from chronic constipation that has worsened in the last few years. She reports daily urine leakage of a few drops and has to change panty liners 2-3 times a day. She states abdomen stretching sometimes ilicits the lower abdominal and PF pain. Pt prefers to defer anal assessment at this time and will try to have records sent from [facility] to [facility]. Prior Treatments and Tests Pelvic floor physical therapy at [facility] that was interrupted due to health problems of the physical therapist. Treatment Goals Patient/Caregiver Goals Pt goal is to get everything back into place, meaning to have her muscles work in a normal sequence, and to learn how to manage her pain and spasms in the rectum and lower abdomen. 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 Current Functional Impairments (Reported) Functional Limitations- ADL's Pain limits ability to get out of bed ocassionally. Functional Limitations- Work/School Sometimes not able to make it to work due to pain. 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 Therapy/Recovery Pt report of: Pt pelvic floor health is very dry with frequent tearing. Constipation. Endometriosis Ablation surgery x 2 in 2015, 2017 (removing 4 areas of endometriosis). Presacral neurectomy (07/2018). Interstitial Cystitis PT-OP-C Subjective Start: 02/20/19 17:49 Freq: Status: Active Protocol: Document 03/09/19 09:50 LRN (Rec: 03/09/19 10:35 LRN [id number]) OP-PT Subjective Patient Comments Patient Comments No changes since last time. Started menstrating (2 months late) that ended 4 days ago. Scheduled to see a burr grinder in 5 days. PT-OP-I Pelvic Floor Start: 02/20/19 17:49 Freq: Status: Active Protocol: Document 02/23/19 09:09 LRN (Rec: 02/23/19 10:09 LRN [id number]) Pelvic Floor Assessment Urine Urinary Symptoms Dysuria Other Urinary Symptoms Light urinary leakage. Sometimes strains to urinate. Sometimes bladder feels full after urinating. Leakage Size Small Leakage Cause Exercise Leaks Per Day 1 Voiding Frequency 10x/day Nocturia 1-2x/day Pads Used In 24 Hours 2-3 Urine Pad Type Panty Liner Bowel Bowel Surgery No Bowel Symptoms Constipation Pain Pelvic Clock Pelvic Clock 12-3 Hypertonic Tenderness Pelvic Clock 3-6 Hypertonic Tightness Pelvic Clock 6-9 Hypertonic Tenderness Tightness Pelvic Clock 9-12 Hypertonic Tenderness Inter-Rectal Assessment Deferred. Pt would rather have previous therapy records sent from [facility]. Prolapse Cystocele Grade 2 Rectocele Grade 2 Perineal Descent Resting Absent Bearing Present Contraction Ability Voluntary Contraction Weak Voluntary Relaxation Absent Manual Muscle Testing Left 0 Manual Muscle Testing Right 0 Manual Muscle Testing Anterior 3 Manual Muscle Testing Posterior 1 Muscle Endurance (Seconds) 1 Number of Quick Contractions In 10 3 Seconds Comments Pelvic Floor Comments PF is very dry. Frequent tearing at 6 O'Clock of the PF . Pt tender at the transverse perineal muscle and the Ishiocavernosus and Bulbocavernosus. PT-OP-K Range of Motion Start: 02/20/19 17:49 Freq: Status: Active Protocol: Document 02/23/19 09:09 LRN (Rec: 02/23/19 10:09 LRN [id number]) Hip Goniometric Range of Motion Hip Measured in Degrees Right Passive Testing Position Supine Straight Leg Raise 65 Abduction 40 Internal Rotation 45 External Rotation 40 Left Passive Hip ROM WFL No Testing Position Supine Straight Leg Raise 80 Abduction 50 Internal Rotation 40 External Rotation 60 Hip ROM Limitations Hip ROM Limitations Soft Tissue Tightness Pain Comments Pain in L lower abdominal quadrant pain with PSLR right, R hip IR , L hip AD. PT-OP-M Strength Start: 02/20/19 17:49 Freq: Status: Active Protocol: Document 02/23/19 09:09 LRN (Rec: 02/23/19 10:09 LRN [id number]) Hip Strength Hip Manual Muscle Testing Right Flexion (L2) 4+ Good+ Extension (S1) 5 Normal Abduction 5 Normal Adduction 5 Normal External Rotation 5 Normal Internal Rotation 4- Good- Comments Pain with testing of: L hip ext at L lower abdominal quadrant L hip AD at L lower abdominal quadrant Left Flexion (L2) 4+ Good+ Extension (S1) 5 Normal Abduction 4+ Good+ Adduction 2+ Poor+ External Rotation 4- Good- Internal Rotation 3+ Fair+ PT-OP-Q Treatments Start: 02/20/19 17:49 Freq: Status: Active Protocol: Document 03/09/19 09:50 LRN (Rec: 03/09/19 10:35 LRN [id number]) Therapeutic Exercises Supine Exercises Deep breathing Supine Exercise Name Deep Breathing without and with Kegel Comments Extra time needed to progress to 6 sec proper breathing Sitting Exercises Deep Breathing Sitting Exercise Name Deep Breathing with self physical feedback on abdomen & chest Reps/Minutes 5' Comments Pt taking shallow breaths, poor sequencing. Pt not relaxed. Self-Care/Home Management Treatment Education Patient Education Home Exercise Program Posture Other Education Reviewed & discussed 2 days of Bladder Diary taken. Pt encouraged to do bladder dairy one more week. Educated pt in how to fill out diary. Reviewed and discussed Bladder retraining for urge symptoms. Educated pt in anatomy and sequencing of deep breathing and invovlement of PF. Reviewed and discussed involvement of sympathetic system and connection to deep breathing and Pelvic Floor. Activities Self-Care/Home Management Activities Issued handouts for Deep breathing and urge deference technique. Issued handouts for Bladder Diary with I/S to fill another week. PT-OP-T Assessment and Plan Start: 02/20/19 17:49 Freq: Status: Active Protocol: Document 03/09/19 09:50 LRN (Rec: 03/09/19 10:35 LRN [id number]) Physical Therapy Assessment Assessment Summary Assessment Pt required much education in PF and involvment of soft tissue and neurological system (sympathetic system). Pt was not compliant with bladder diary; therefore another week of monitoring was needed. Based on the pt's 2 day tracking she is voiding every hour, but unknown amt of fluid intake. Voiding time as decent at 7-10 sec's almost every time with what the pt reports is good flow; therefore pt possibly drinking too much fluid (as treatment for IC). The pt presents with rigid posturing; therefore she may be at high alert. Pt would benefit from relaxation ex's and needs futher training in deep breathing to assist with decreasing sympathetic tone. Pt notes she will not be able to attend next week due to other appt's, therefore cont with therapy in 2 weeks. Physical Therapy Plan Frequency and Duration Frequency of Treatment 2x/Week Plan of Care Start Date 02/23/19 Plan of Care End Date 05/26/19 Next Visit Focus/Plan Next Note Type Treatment Note Next Visit Plan Assess Obturator Internus externally and start manual treatment to decrease ms tone. Add Sciatic/LE nerve glides and HEP of hip mobility and strengthening ex's. Check bladder positioniong and correct as needed. Possible EMG assessment with a rectal probe. Review Bladder Diary provide recommendations after bladder diary review. Try K- tape for L trunk rotator support. Vulvar care education and review bowel massage in 2 visits (issue handout if not already received from [facility]). Progress to manual therapy to decreased muscle tone of L abdomen and PF.
--- NOTE | 2019-03-31 15:48 | PT.OTN ---
Current Diagnoses Vaginismus (03/31/19) Physical Therapy Treatment Note PT-OP-A Visit Information Start: 02/20/19 17:49 Freq: Status: Active Protocol: Document 03/31/19 08:15 LRN (Rec: 03/31/19 09:02 LRN [id number]) Out-Patient Physical Therapy Visit Information Visit Information Visit Type Treatment Note Visit Start Time 08:15 Visit Stop Time 09:02 Total Visit Minutes 47 Visit Number 3 Number of TIMBER SURVEYOR Visits 0 Evaluation Information Evaluation Date 02/23/19 Precautions Precautions Very fragile external pelvic floor in area of transverse perineum. Multiple endometriosus ablation surgeries. Presacral neurectomy 07/2018. PT-OP-B Current Condition Start: 02/20/19 17:49 Freq: Status: Active Protocol: Document 02/23/19 09:09 LRN (Rec: 02/23/19 10:09 LRN [id number]) Current Condition History of Current Condition Onset Date 2 yrs ago Current Complaints Pelvic floor dysfunction, pain spasms, syncing contractions History of Current Condition Pelvic Floor (PF) pain started 3 yrs ago, but the current type of PF pain started ~ 2yrs ago that has persisted. She reports having rectum spasms before the 2nd endometriosis ablation surgery in 10/2017 that was 2 cysts impinging on rectum canal, but now she reports its a big problem. She states the cysts are a reoccuring problem with menstrual cycle; therefore the pain is a reoccuring problem as well. Her menstrual cycles are irregular; therefore her pain onset is irregular with no pattern noted. She reports suffering from chronic constipation that has worsened in the last few years. She reports daily urine leakage of a few drops and has to change panty liners 2-3 times a day. She states abdomen stretching sometimes ilicits the lower abdominal and PF pain. Pt prefers to defer anal assessment at this time and will try to have records sent from [facility] to [facility]. Prior Treatments and Tests Pelvic floor physical therapy at [facility] that was interrupted due to health problems of the physical therapist. Treatment Goals Patient/Caregiver Goals Pt goal is to get everything back into place, meaning to have her muscles work in a normal sequence, and to learn how to manage her pain and spasms in the rectum and lower abdomen. 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 Current Functional Impairments (Reported) Functional Limitations- ADL's Pain limits ability to get out of bed occasionally. Functional Limitations- Work/School Sometimes not able to make it to work due to pain. 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 Therapy/Recovery Pt report of: Pt pelvic floor health is very dry with frequent tearing. Constipation. Endometriosis Ablation surgery x 2 in 2015, 2017 (removing 4 areas of endometriosis). Presacral neurectomy (07/2018). Interstitial Cystitis PT-OP-C Subjective Start: 02/20/19 17:49 Freq: Status: Active Protocol: Document 03/31/19 08:15 LRN (Rec: 03/31/19 09:02 LRN [id number]) OP-PT Subjective Patient Comments Patient Comments Having a lot of rectum pain, some sharp, and some R groin pain this morning. The rest of the pain ovarian, achy pain is different from muscle or spasm pain,...can feel it where ovaries are. PT-OP-I Pelvic Floor Start: 02/20/19 17:49 Freq: Status: Active Protocol: Document 02/23/19 09:09 LRN (Rec: 02/23/19 10:09 LRN [id number]) Pelvic Floor Assessment Urine Urinary Symptoms Dysuria Other Urinary Symptoms Light urinary leakage. Sometimes strains to urinate. Sometimes bladder feels full after urinating. Leakage Size Small Leakage Cause Exercise Leaks Per Day 1 Voiding Frequency 10x/day Nocturia 1-2x/day Pads Used In 24 Hours 2-3 Urine Pad Type Panty Liner Bowel Bowel Surgery No Bowel Symptoms Constipation Pain Pelvic Clock Pelvic Clock 12-3 Hypertonic Tenderness Pelvic Clock 3-6 Hypertonic Tightness Pelvic Clock 6-9 Hypertonic Tenderness Tightness Pelvic Clock 9-12 Hypertonic Tenderness Inter-Rectal Assessment Deferred. Pt would rather have previous therapy records sent from [facility]. Prolapse Cystocele Grade 2 Rectocele Grade 2 Perineal Descent Resting Absent Bearing Present Contraction Ability Voluntary Contraction Weak Voluntary Relaxation Absent Manual Muscle Testing Left 0 Manual Muscle Testing Right 0 Manual Muscle Testing Anterior 3 Manual Muscle Testing Posterior 1 Muscle Endurance (Seconds) 1 Number of Quick Contractions In 10 3 Seconds Comments Pelvic Floor Comments PF is very dry. Frequent tearing at 6 O'Clock of the PF . Pt tender at the transverse perineal muscle and the Ishiocavernosus and Bulbocavernosus. PT-OP-K Range of Motion Start: 02/20/19 17:49 Freq: Status: Active Protocol: Document 02/23/19 09:09 LRN (Rec: 02/23/19 10:09 LRN [id number]) Hip Goniometric Range of Motion Hip Measured in Degrees Right Passive Testing Position Supine Straight Leg Raise 65 Abduction 40 Internal Rotation 45 External Rotation 40 Left Passive Hip ROM WFL No Testing Position Supine Straight Leg Raise 80 Abduction 50 Internal Rotation 40 External Rotation 60 Hip ROM Limitations Hip ROM Limitations Soft Tissue Tightness Pain Comments Pain in L lower abdominal quadrant pain with PSLR right, R hip IR , L hip AD. PT-OP-M Strength Start: 02/20/19 17:49 Freq: Status: Active Protocol: Document 02/23/19 09:09 LRN (Rec: 02/23/19 10:09 LRN [id number]) Hip Strength Hip Manual Muscle Testing Right Flexion (L2) 4+ Good+ Extension (S1) 5 Normal Abduction 5 Normal Adduction 5 Normal External Rotation 5 Normal Internal Rotation 4- Good- Comments Pain with testing of: L hip ext at L lower abdominal quadrant L hip AD at L lower abdominal quadrant Left Flexion (L2) 4+ Good+ Extension (S1) 5 Normal Abduction 4+ Good+ Adduction 2+ Poor+ External Rotation 4- Good- Internal Rotation 3+ Fair+ PT-OP-Q Treatments Start: 02/20/19 17:49 Freq: Status: Active Protocol: Document 03/31/19 08:15 LRN (Rec: 03/31/19 09:02 LRN [id number]) Therapeutic Exercises Supine Exercises Happy Baby Pose Supine Exercise Name Happy Baby Pose Side bilateral Reps/Minutes 2' Hamstrin/LE neural stretch Supine Exercise Name Hamstring/LE neural stretch Side bilateral Reps/Minutes 4' Deep breathing Supine Exercise Name Deep Breathing without and with Kegel Reps/Minutes 4' Comments Some extra time needed to progress to 6 sec proper breathing Manual Therapy Treatment Soft Tissue Mobilization L Obturator Internus Body Location L OI at medial side of Ischial Tuberosity Mobilization Type Trigger Point Release Intensity/Depth Moderate Body Position Hooklying Comments Moved to R side due to greater discomfort on R side. R Obturator Internus Body Location R OI at medial side of Ischial Tuberosity Mobilization Type Trigger Point Release Intensity/Depth Superficial > Deep Body Position Hooklying Comments Decrease in Sharp pain after treatment Onset of R groin pain with deep palpation of area of R Obturator. Self-Care/Home Management Treatment Education Patient Education Home Exercise Program Other Education Reviewed Bladder Diary with patient. Discussed areas that pt could change: Increased water intake earlier during the day and discussed reason why. Discussed Bladder irritants and effect on voiding schedule . Discussed possible reasons for burning pain with urination. Activities Self-Care/Home Management Activities Handout issued and reviewed for HEP: Bowel massage Discussed initiation of bladder training for the first couple of hours after waking, and adjustments for delaying voiding in the shower ( avoiding JIC-ing, being aware of voiding schedule every 2 hours starting at first void). PT-OP-T Assessment and Plan Start: 02/20/19 17:49 Freq: Status: Active Protocol: Document 03/31/19 08:15 LRN (Rec: 03/31/19 15:45 LRN [id number]) Physical Therapy Assessment Assessment Summary Assessment Pt improved in ability to perform proper deep breathing. Her breath is quick, ~3 sec, and needs to slow. She does respond well to deep breathing with palpable OI relaxation when TrP treatment is given with breathing. Per bladder diary review, on weekends she voids mostly every 2 hours vs weekdays mostly hourly. Voiding times are 6-10 sec with urge present. Burning pain with urination may be associated to not enough fluid intake as needed for IC treatment. Might need to measure more accurately pt's voiding ounces. The pt has many active trigger points in tanisha Obturator Internus muscle at Ischial Tuberosities with sharp PF pain lessening after treatment. Pt will benefit from relaxation ex's and PF stretching (?Valsa). Pt appears to position for a good PF stretch with Happy Baby Pose and has onset of R anterior groin pain (possible PF stretch referred pain), but will have to monitor response to stretching. Further downtraining of sympathetic nervous system is needed. Physical Therapy Plan Frequency and Duration Frequency of Treatment 2x/Week Plan of Care Start Date 02/23/19 Plan of Care End Date 05/26/19 Next Visit Focus/Plan Next Note Type Treatment Note Next Visit Plan Add HEP of hip mobility and strengthening ex's, review LE neural stretch. Check bladder positioning and correct as needed. Possible EMG assessment with a rectal probe . Try K-tape for L trunk rotator support. Vulvar care education. Progress to manual therapy to decreased muscle tone of L abdomen and PF.
--- NOTE | 2019-04-21 18:34 | PT.OTN ---
Current Diagnoses Vaginismus (04/21/19) Physical Therapy Treatment Note PT-OP-A Visit Information Start: 02/20/19 17:49 Freq: Status: Active Protocol: Document 04/21/19 08:16 LRN (Rec: 04/21/19 09:10 LRN [id number]) Out-Patient Physical Therapy Visit Information Visit Information Visit Type Treatment Note Visit Start Time 08:16 Visit Stop Time 09:10 Total Visit Minutes 54 Visit Number 5 Number of IN SERVICE EDUCATION TEACHER Visits 0 Evaluation Information Evaluation Date 02/23/19 Precautions Precautions Very fragile external pelvic floor in area of transverse perineum. Multiple endometriosus ablation surgeries. Presacral neurectomy 07/2018. PT-OP-B Current Condition Start: 02/20/19 17:49 Freq: Status: Active Protocol: Document 02/23/19 09:09 LRN (Rec: 02/23/19 10:09 LRN [id number]) Current Condition History of Current Condition Onset Date 2 yrs ago Current Complaints Pelvic floor dysfunction, pain spasms, syncing contractions History of Current Condition Pelvic Floor (PF) pain started 3 yrs ago, but the current type of PF pain started ~ 2yrs ago that has persisted. She reports having rectum spasms before the 2nd endometriosis ablation surgery in 10/2017 that was 2 cysts impinging on rectum canal, but now she reports its a big problem. She states the cysts are a reoccuring problem with menstrual cycle; therefore the pain is a reoccuring problem as well. Her menstrual cycles are irregular; therefore her pain onset is irregular with no pattern noted. She reports suffering from chronic constipation that has worsened in the last few years. She reports daily urine leakage of a few drops and has to change panty liners 2-3 times a day. She states abdomen stretching sometimes ilicits the lower abdominal and PF pain. Pt prefers to defer anal assessment at this time and will try to have records sent from [facility] PT to [facility]. Prior Treatments and Tests Pelvic floor physical therapy at [facility] that was interrupted due to health problems of the physical therapist. Treatment Goals Patient/Caregiver Goals Pt goal is to get everything back into place, meaning to have her muscles work in a normal sequence, and to learn how to manage her pain and spasms in the rectum and lower abdomen. 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 Current Functional Impairments (Reported) Functional Limitations- ADL's Pain limits ability to get out of bed ocassionally. Functional Limitations- Work/School Sometimes not able to make it to work due to pain. 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 Therapy/Recovery Pt report of: Pt pelvic floor health is very dry with frequent tearing. Constipation. Endometriosis Ablation surgery x 2 in 2015, 2017 (removing 4 areas of endometriosis). Presacral neurectomy (07/2018). Interstitial Cystitis PT-OP-C Subjective Start: 02/20/19 17:49 Freq: Status: Active Protocol: Document 04/21/19 08:16 LRN (Rec: 04/21/19 09:10 LRN [id number]) OP-PT Subjective Patient Comments Patient Comments States she has been doing more deep breathing and was able to hold her urine a little longer. PT-OP-I Pelvic Floor Start: 02/20/19 17:49 Freq: Status: Active Protocol: Document 04/21/19 08:16 LRN (Rec: 04/21/19 18:24 LRN [id number]) Pelvic Floor Assessment SEMG (uV) Baseline 9.1 Relaxation Poor/Slow Holding Fair Stability of Hold Fair SEMG Stability of Rest Fair Comments Pelvic Floor Comments (04/21/19) Pt has high tone with relaxation. Strong PF contraction. Quick Flicks: Avg Work - 14.0 uV Avg rest - 10.7 uV Long Holds: Avg Work - 10.9 uV Avg rest - 9.6 uV PT-OP-K Range of Motion Start: 02/20/19 17:49 Freq: Status: Active Protocol: Document 04/14/19 08:20 LRN (Rec: 04/14/19 09:07 LRN [id number]) Hip Goniometric Range of Motion Hip Measured in Degrees Right Passive Straight Leg Raise 73 Left Passive Straight Leg Raise 73 PT-OP-M Strength Start: 02/20/19 17:49 Freq: Status: Active Protocol: Document 02/23/19 09:09 LRN (Rec: 02/23/19 10:09 LRN [id number]) Hip Strength Hip Manual Muscle Testing Right Flexion (L2) 4+ Good+ Extension (S1) 5 Normal Abduction 5 Normal Adduction 5 Normal External Rotation 5 Normal Internal Rotation 4- Good- Comments Pain with testing of: L hip ext at L lower abdominal quadrant L hip AD at L lower abdominal quadrant Left Flexion (L2) 4+ Good+ Extension (S1) 5 Normal Abduction 4+ Good+ Adduction 2+ Poor+ External Rotation 4- Good- Internal Rotation 3+ Fair+ PT-OP-Q Treatments Start: 02/20/19 17:49 Freq: Status: Active Protocol: Document 04/21/19 08:16 LRN (Rec: 04/21/19 18:20 LRN [id number]) Therapeutic Exercises Supine Exercises Iliopsoas Stretch Supine Exercise Name Leg off side of table Side bilateral Reps/Minutes 4' Piriformis Stretch Supine Exercise Name Piriformis Comments Extra time taken to try and modify to avoid groin pain. Eventually held Lateral Hip Supine Exercise Name Lat Hip with NL breathing Reps/Minutes 5' Comments R>L, extra time taken to adjust stretch to avoid groin pain. Fig 4 Supine Exercise Name Fig 4 with Deep Breathing Side bilateral Reps/Minutes 4' Comments L>R Stab needed at pelvis on left (towel roll under L PSIS) Hip AD stretch Supine Exercise Name Manual and long hold stretch Side right Reps/Minutes 2' Deep breathing Supine Exercise Name Deep Breathing without and with Kegel Reps/Minutes 3' Neuro Re-Education Treatment Other Activities EMG for PF awareness Details EMG for awareness of PF tone Reps/Duration 25' Comments Initial EMG Biofeed back for ( See PF assessment): Restin.1 uV. Quick Flicks: Avg Work 14.0 uV ; Avg Rest 10.7 uV. Long Holds: Avg Work 10.9 uV; Avg Rest 9.6 uV. Extra time taken for pt to place electrode and have BR break before placing electrode . Self-Care/Home Management Treatment Education Patient Education Home Exercise Program Other Education Briefly discussed loose clothing wear. Pt notes she tries wearing loose clothing. Activities Self-Care/Home Management Activities Handouts issued & reviewed for HEP: Hip stretches (ER/IR/ hip flexor, AD's). PT-OP-R Modalities Start: 02/20/19 17:49 Freq: Status: Active Protocol: Document 04/14/19 08:20 LRN (Rec: 04/14/19 09:07 LRN [id number]) Electric Stimulation Electric Stimulation Interferential Current (IFC) Body Location Low Back Duration (Minutes) 15 Target/Sweep Sweep Patient Position Hooklying Combined With Heat/Cold Hot Pack PT-OP-T Assessment and Plan Start: 02/20/19 17:49 Freq: Status: Active Protocol: Document 04/21/19 08:16 LRN (Rec: 04/21/19 18:20 LRN [id number]) Physical Therapy Assessment Assessment Summary Assessment Pt is improving in ability to smoothly deep breath upon request with noticeable abdominal movement. Pelvis is normal positioning except for inflare of innominate. She has pain with hip flexion that she attributes to cysts. She tolerated EMG biofeedback with vaginal probe without complaints of discomfort. Pt notes she will be seeing an MD for treatment of ulcers, that may help to relax her anterior abdominal wall. Her L lateral trunk is increased in muscle tension compared to R side. Pt is not able to attend therapy 2x/week for awhile due to scheduling difficulties, but hopes to in May. Physical Therapy Plan Frequency and Duration Frequency of Treatment 2x/Week Plan of Care Start Date 02/23/19 Plan of Care End Date 05/26/19 Next Visit Focus/Plan Next Note Type Treatment Note Next Visit Plan Check if use of E-Stim to LB would help to reduce LBP and core muscle tension, if helpful end with MH/IFES. Recheck hip strength and add HEP of hip strengthening ex's if needed w/instructions for stretch immediately after. Check bladder positioning and correct as needed. Consider K- tape for L trunk rotator support if needed. Vulvar care education for dryness. Progress to manual therapy to decreased muscle tone of L abdomen if ulcer care has improved and is tolerated. Neuro anny for PF relaxation. Teach Yoga pose for abdominal stretching and PF relaxation.
--- NOTE | 2019-05-02 15:57 | PT.OTN ---
Current Diagnoses Vaginismus (05/02/19) Physical Therapy Treatment Note PT-OP-A Visit Information Start: 02/20/19 17:49 Freq: Status: Active Protocol: Document 05/02/19 08:18 LRN (Rec: 05/02/19 09:10 LRN [id number]) Out-Patient Physical Therapy Visit Information Visit Information Visit Type Treatment Note Visit Start Time 08:18 Visit Stop Time 09:10 Total Visit Minutes 52 Visit Number 6 Number of RN [facility] Visits 0 Evaluation Information Evaluation Date 02/23/19 Precautions Precautions Recent + test per over the counter testing (05/02). Very fragile external pelvic floor in area of transverse perineum. Multiple endometriosus ablation surgeries. Presacral neurectomy 07/2018. PT-OP-B Current Condition Start: 02/20/19 17:49 Freq: Status: Active Protocol: Document 02/23/19 09:09 LRN (Rec: 02/23/19 10:09 LRN [id number]) Current Condition History of Current Condition Onset Date 2 yrs ago Current Complaints Pelvic floor dysfunction, pain spasms, syncing contractions History of Current Condition Pelvic Floor (PF) pain started 3 yrs ago, but the current type of PF pain started ~ 2yrs ago that has persisted. She reports having rectum spasms before the 2nd endometriosis ablation surgery in 10/2017 that was 2 cysts impinging on rectum canal, but now she reports its a big problem. She states the cysts are a reoccuring problem with menstrual cycle; therefore the pain is a reoccuring problem as well. Her menstrual cycles are irregular; therefore her pain onset is irregular with no pattern noted. She reports suffering from chronic constipation that has worsened in the last few years. She reports daily urine leakage of a few drops and has to change panty liners 2-3 times a day. She states abdomen stretching sometimes ilicits the lower abdominal and PF pain. Pt prefers to defer anal assessment at this time and will try to have records sent from [facility] to [facility]. Prior Treatments and Tests Pelvic floor physical therapy at [facility] that was interrupted due to health problems of the physical therapist. Treatment Goals Patient/Caregiver Goals Pt goal is to get everything back into place, meaning to have her muscles work in a normal sequence, and to learn how to manage her pain and spasms in the rectum and lower abdomen. 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 Current Functional Impairments (Reported) Functional Limitations- ADL's Pain limits ability to get out of bed ocassionally. Functional Limitations- Work/School Sometimes not able to make it to work due to pain. 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 Therapy/Recovery Pt report of: Pt pelvic floor health is very dry with frequent tearing. Constipation. Endometriosis Ablation surgery x 2 in 2015, 2016 (removing 4 areas of endometriosis). Presacral neurectomy (07/2018). Interstitial Cystitis PT-OP-C Subjective Start: 02/20/19 17:49 Freq: Status: Active Protocol: Document 05/02/19 08:18 LRN (Rec: 05/02/19 09:10 LRN [id number]) OP-PT Subjective Patient Comments Patient Comments States she found out she was . Will be on vacation 1 wk, not available PT-OP-I Pelvic Floor Start: 02/20/19 17:49 Freq: Status: Active Protocol: Document 04/21/19 08:16 LRN (Rec: 04/21/19 18:24 LRN [id number]) Pelvic Floor Assessment SEMG (uV) Baseline 9.1 Relaxation Poor/Slow Holding Fair Stability of Hold Fair SEMG Stability of Rest Fair Comments Pelvic Floor Comments (04/21/19) Pt has high tone with relaxation. Strong PF contraction. Quick Flicks: Avg Work - 14.0 uV Avg rest - 10.7 uV Long Holds: Avg Work - 10.9 uV Avg rest - 9.6 uV PT-OP-K Range of Motion Start: 02/20/19 17:49 Freq: Status: Active Protocol: Document 04/14/19 08:20 LRN (Rec: 04/14/19 09:07 LRN [id number]) Hip Goniometric Range of Motion Hip Measured in Degrees Right Passive Straight Leg Raise 73 Left Passive Straight Leg Raise 73 PT-OP-M Strength Start: 02/20/19 17:49 Freq: Status: Active Protocol: Document 02/23/19 09:09 LRN (Rec: 02/23/19 10:09 LRN [id number]) Hip Strength Hip Manual Muscle Testing Right Flexion (L2) 4+ Good+ Extension (S1) 5 Normal Abduction 5 Normal Adduction 5 Normal External Rotation 5 Normal Internal Rotation 4- Good- Comments Pain with testing of: L hip ext at L lower abdominal quadrant L hip AD at L lower abdominal quadrant Left Flexion (L2) 4+ Good+ Extension (S1) 5 Normal Abduction 4+ Good+ Adduction 2+ Poor+ External Rotation 4- Good- Internal Rotation 3+ Fair+ PT-OP-Q Treatments Start: 02/20/19 17:49 Freq: Status: Active Protocol: Document 05/02/19 08:18 LRN (Rec: 05/02/19 15:47 LRN [id number]) Cardio Equipment Bicycle (Upright) Duration (Minutes) 8 Resistance 2 Seat Position 3 Therapeutic Exercises Supine Exercises Hip AD stretch Supine Exercise Name Trp, Manual, & long hold stretch Side bilateral Reps/Minutes 15' Deep breathing Supine Exercise Name Deep Breathing without and with Kegel Reps/Minutes 3' Prone Exercises Trunk rotation Prone Exercise Name Knees flexed for left to right foot swings. Side bilateral Reps/Minutes 3' Manual Therapy Treatment Soft Tissue Mobilization Anal massage Body Location Bilateral Iliococcygeous > Lateral Transverse Perineum > Ischiocavernosus Mobilization Type Myofascial Release Intensity/Depth Superficial Body Position Prone Hip AD Body Location Bilateral hip AD Mobilization Type Sustained Pressure Trigger Point Release Intensity/Depth Superficial Body Position Supine Self-Care/Home Management Treatment Education Other Education Discussed hold on modalities except use of ice during . PT-OP-R Modalities Start: 02/20/19 17:49 Freq: Status: Active Protocol: Document 04/14/19 08:20 LRN (Rec: 04/14/19 09:07 LRN [id number]) Electric Stimulation Electric Stimulation Interferential Current (IFC) Body Location Low Back Duration (Minutes) 15 Target/Sweep Sweep Patient Position Hooklying Combined With Heat/Cold Hot Pack PT-OP-T Assessment and Plan Start: 02/20/19 17:49 Freq: Status: Active Protocol: Document 05/02/19 08:18 LRN (Rec: 05/02/19 09:10 LRN [id number]) Physical Therapy Assessment Goals L Lower Abdominal Quadrant Pain Impairment L lower abdominal quadrant pain with passive & active hip ROM Retirement Goal (LTG) Improve bilateral hip mobility and normalize hip strength without pain onset. LTG Duration 05/26/19 Pelvic Floor tightness and pain Impairment Increased PF tightness with pain on palpation Cooler Man Goal (LTG) Decreased PF tightness with pt able to urinate and defecate with less to no pain. LTG Duration 05/26/19 Hip mobility Impairment Decreased hip rotation & AB mobility due to L lower abdominal quadrant pain Cooler Man Goal (LTG) Pt will demonstrate improved hip mobility with lessening of pain with exercise activity and nighttime activities. LTG Duration 04/28/19 Pelvic Floor Pain Impairment Pain at Ishiocavernosus & Bulbocavernosus to palpation Short Term Goal (STG) Pt will be educated in proper vulva care. STG Duration 03/13/19 Bladder dysfunction Impairment Urination frequency of 10x/day and 1-2x/night. Short Term Goal (STG) Pt will be educated in urinary delay technique. Bladder Diary will be reviewed with urinary recommendations made as appropriate after bladder diary review. STG Duration 02/27/19 Retirement Goal (LTG) Decrease of frequency of urination to 5-7x/day and 0-1x /night. Bowel dysfunction Impairment Constipation Short Term Goal (STG) Pt will be educated in proper bowel care (message and diet to be discussed). STG Duration 03/06/19 Cooler Man Goal (LTG) Pt will report decrease in constipation onset. LTG Duration 03/24/19 HEP Impairment Pt has been started on HEP but lacks full self care HEP Cooler Man Goal (LTG) Pt will be educated and independent on a self care HEP . Pt will be able to manage her abdominal and PF pain to a tolerable level with a HEP. LTG Duration 05/26/19 Assessment Summary Assessment Pt status will definitely challenge the pt over time. Today her tenderness in the hip AD's appears lessened on the left. She has active Trp's in the R medial hamstring and hip AD tendon at the pubic symphysis and mild tenderness in the L hip AD Brevis and Longus tendons that decreased after manual therapy. Pt able to position in BKFO stretch without pain. The pt has primarily lower abdominal uterine pain and anal pain ( primarily left), and pt is worried about pain with her . Pt might benefit from mental health therapy if it causes her undue anxiety. Pt had good tolerance to anal massage to decrease tension and pain. Will need to modify therapy (hold modalities except ice) with her status. Physical Therapy Plan Frequency and Duration Frequency of Treatment 2x/Week Plan of Care Start Date 02/23/19 Plan of Care End Date 05/26/19 Next Visit Focus/Plan Next Note Type Treatment Note Next Visit Plan Consider K-tape for L trunk rotator support/relaxation if needed. Vulvar care education for dryness. Neuro anny for PF relaxation. Teach Yoga pose for gentle abdominal stretching and PF relaxation appropriate for status.
--- NOTE | 2019-06-05 18:38 | PT.OTN ---
Current Diagnoses Vaginismus (06/05/19) Physical Therapy Treatment Note PT-OP-A Visit Information Start: 02/20/19 17:49 Freq: Status: Active Protocol: Document 06/05/19 09:49 LRN (Rec: 06/05/19 10:54 LRN [id number]) Out-Patient Physical Therapy Visit Information Visit Information Visit Type Progress Note Visit Note Pt reports 10 weeks Visit Start Time 09:49 Visit Stop Time 10:45 Total Visit Minutes 56 Visit Number 7 Number of BAKERY DELIVERER Visits 0 Evaluation Information Evaluation Date 02/23/19 Precautions Precautions Recent + test per over the counter testing (05/02). Very fragile external pelvic floor in area of transverse perineum. Multiple endometriosus ablation surgeries. Presacral neurectomy 07/2018. PT-OP-B Current Condition Start: 02/20/19 17:49 Freq: Status: Active Protocol: Document 02/23/19 09:09 LRN (Rec: 02/23/19 10:09 LRN [id number]) Current Condition History of Current Condition Onset Date 2 yrs ago Current Complaints Pelvic floor dysfunction, pain spasms, syncing contractions History of Current Condition Pelvic Floor (PF) pain started 3 yrs ago, but the current type of PF pain started ~ 2yrs ago that has persisted. She reports having rectum spasms before the 2nd endometriosis ablation surgery in 10/2017 that was 2 cysts impinging on rectum canal, but now she reports its a big problem. She states the cysts are a reoccuring problem with menstrual cycle; therefore the pain is a reoccuring problem as well. Her menstrual cycles are irregular; therefore her pain onset is irregular with no pattern noted. She reports suffering from chronic constipation that has worsened in the last few years. She reports daily urine leakage of a few drops and has to change panty liners 2-3 times a day. She states abdomen stretching sometimes ilicits the lower abdominal and PF pain. Pt prefers to defer anal assessment at this time and will try to have records sent from [facility] to [facility]. Prior Treatments and Tests Pelvic floor physical therapy at [facility] that was interrupted due to health problems of the physical therapist. Treatment Goals Patient/Caregiver Goals Pt goal is to get everything back into place, meaning to have her muscles work in a normal sequence, and to learn how to manage her pain and spasms in the rectum and lower abdomen. 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 Current Functional Impairments (Reported) Functional Limitations- ADL's Pain limits ability to get out of bed ocassionally. Functional Limitations- Work/School Sometimes not able to make it to work due to pain. 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 Therapy/Recovery Pt report of: Pt pelvic floor health is very dry with frequent tearing. Constipation. Endometriosis Ablation surgery x 2 in 2015, 2016 (removing 4 areas of endometriosis). Presacral neurectomy (07/2018). Interstitial Cystitis PT-OP-C Subjective Start: 02/20/19 17:49 Freq: Status: Active Protocol: Document 06/05/19 09:49 LRN (Rec: 06/05/19 10:54 LRN [id number]) OP-PT Subjective Patient Comments Patient Comments Seeing Dr. Butcher and her Pelvic Guru RN 06/14/19. She has been able to do most of stretches, 3-4x week due to morning sickness. Stomach ulcer is bad and taking 2 meds that is food and water restrictive. Having more problems with anal pain. Would like to continue therapy 1x/month to help manage her anal/PF pain. Patient Questionnaires Pelvic Pain and Urgency/Frequency Patient Symptom Scale Pelvic Pain Score 21 OP-PT Pain Assessment Location Anterior Pubic Bone region Pain Location Details Anterior Pubic Regioni Intensity 5 Rectum Pain Location Details Rectum Intensity 6 Right Lower Anterior Abdomen Pain Location Details R abdominal pain across abdomen at pubic bone level, groin Intensity 5 Scale Used Numeric (1 - 10) Description Aching Left Lower Anterior Abdomen Pain Location Details L abdominal pain medial to ASIS, across abdomen at pubic bone level, groin Intensity 5 Scale Used Numeric (1 - 10) Description Aching Sharp Frequency Intermittent Comments Pain Comments Pain with defecation rated 6-7 /10. Pain with urination is 4-5/10. PT-OP-I Pelvic Floor Start: 02/20/19 17:49 Freq: Status: Active Protocol: Document 04/21/19 08:16 LRN (Rec: 04/21/19 18:24 LRN [id number]) Pelvic Floor Assessment SEMG (uV) Baseline 9.1 Relaxation Poor/Slow Holding Fair Stability of Hold Fair SEMG Stability of Rest Fair Comments Pelvic Floor Comments (04/21/19) Pt has high tone with relaxation. Strong PF contraction. Quick Flicks: Avg Work - 14.0 uV Avg rest - 10.7 uV Long Holds: Avg Work - 10.9 uV Avg rest - 9.6 uV PT-OP-K Range of Motion Start: 02/20/19 17:49 Freq: Status: Active Protocol: Document 06/05/19 09:49 LRN (Rec: 06/05/19 10:54 LRN [id number]) Hip Goniometric Range of Motion Hip Right Passive Flexion w/Knee Flexed 105 Internal Rotation 30 External Rotation 85 Left Passive Flexion w/Knee Flexed 125 Internal Rotation 40 External Rotation 70 PT-OP-M Strength Start: 02/20/19 17:49 Freq: Status: Active Protocol: Document 02/23/19 09:09 LRN (Rec: 02/23/19 10:09 LRN [id number]) Hip Strength Hip Manual Muscle Testing Right Flexion (L2) 4+ Good+ Extension (S1) 5 Normal Abduction 5 Normal Adduction 5 Normal External Rotation 5 Normal Internal Rotation 4- Good- Comments Pain with testing of: L hip ext at L lower abdominal quadrant L hip AD at L lower abdominal quadrant Left Flexion (L2) 4+ Good+ Extension (S1) 5 Normal Abduction 4+ Good+ Adduction 2+ Poor+ External Rotation 4- Good- Internal Rotation 3+ Fair+ PT-OP-Q Treatments Start: 02/20/19 17:49 Freq: Status: Active Protocol: Document 06/05/19 09:49 LRN (Rec: 06/05/19 10:54 LRN [id number]) Therapeutic Exercises Supine Exercises Hip ER/IR/flex stretch Side bilateral Comments Stretch followed by PROM taken Other Exercises Cat/Cow Other Exercise Name Cat/Cow Reps/Minutes 5' Child pose Other Exercise Name Child pose Reps/Minutes 5' Self-Care/Home Management Treatment Education Patient Education Home Exercise Program Other Education Discussed at length changes in body and posture with and discussed/ reviewed ex's to limit negative effects on posture with progressing . Activities Self-Care/Home Management Activities Issued & reviewed HEP: General stretches; yoga stretches: Rock Backs, Child Pose, Downward facing Dog. PT-OP-R Modalities Start: 02/20/19 17:49 Freq: Status: Active Protocol: Document 04/14/19 08:20 LRN (Rec: 04/14/19 09:07 LRN [id number]) Electric Stimulation Electric Stimulation Interferential Current (IFC) Body Location Low Back Duration (Minutes) 15 Target/Sweep Sweep Patient Position Hooklying Combined With Heat/Cold Hot Pack PT-OP-T Assessment and Plan Start: 02/20/19 17:49 Freq: Status: Active Protocol: Document 06/05/19 09:49 LRN (Rec: 06/05/19 10:54 LRN [id number]) Physical Therapy Assessment Rehab Potential Rehabilitation Potential Fair Evaluation Complexity Number of Personal Factors/Comorbidities 3 or More Number of Body Systems Impaired 4 or More Clinical Presentation at Evaluation Evolving Impairments Impairments Activity Tolerance Pain Posture ROM Soft Tissue Mobility Strength Other Impairments Poor tissue integrity of Pelvic Floor. Other Concerns Age Related Concerns Impact on family and work. Barriers to Rehabilitation Ongoing . Chronicity of condition. Surgical history. 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 Goals Rectal pain Impairment Severe rectal pain rated 6-7/ 10 Hyster Driver Goal (LTG) Pt will be able to lessen rectal pain to no greater than 4-5/10. LTG Duration 11/21/19 L Lower Abdominal Quadrant Pain Impairment L lower abdominal quadrant pain with passive & active hip ROM Hyster Driver Goal (LTG) Improve bilateral hip mobility and normalize hip strength without pain onset. LTG Duration DC GOAL: GOAL PARTIALLY MET Pelvic Floor tightness and pain Impairment Increased PF tightness with pain on palpation Hyster Driver Goal (LTG) Decreased PF tightness with pt able to urinate and defecate with less to no pain. LTG Duration DC GOAL: NOT ABLE TO ACHIEVE DUE TO Hip mobility Impairment Decreased hip rotation & AB mobility due to L lower abdominal quadrant pain Senior Care Goal (LTG) Pt will demonstrate improved hip mobility with lessening of pain with exercise activity and nighttime activities. LTG Duration DC GOAL: GOAL PARTIALLY MET. Pelvic Floor Pain Impairment Pain at Ishiocavernosus & Bulbocavernosus to palpation Short Term Goal (STG) Pt will be educated in proper vulva care. STG Duration 07/21/19 Bladder dysfunction Impairment Urination frequency of 10x/day and 1-2x/night. Short Term Goal (STG) Pt will be educated in urinary delay technique. Bladder Diary will be reviewed with urinary recommendations made as appropriate after bladder diary review. STG Duration 02/27/19 GOAL MET Hyster Driver Goal (LTG) Decrease of frequency of urination to 5-7x/day and 0-1x /night. LTG Duration DC GOAL. NOT ABLE TO ACHIEVE DUE TO Bowel dysfunction Impairment Constipation Short Term Goal (STG) Pt will be educated in proper bowel care (message and diet to be discussed). STG Duration 03/06/19 GOAL MET. Senior Care Goal (LTG) Pt will report decrease in constipation onset. LTG Duration DC GOAL. NOT ABLE TO ACHIEVE DUE TO HEP Impairment Pt has been started on HEP but lacks full self care HEP Senior Care Goal (LTG) Pt will be educated and independent on a self care HEP . Pt will be able to manage her abdominal and PF pain to a tolerable level with a HEP. LTG Duration 11/21/19 Assessment Summary Assessment Pt reports being 10 weeks . The pt's previous therapy goals are not all appropriate due to her changed medical status. She appears anxious and under duress and worsening of pelvic floor symtoms, especially her anal pain. She would benefit from psychological mindfullness training as it is expected that her condition will most likely worsen as her progressess. She would benefit from monthly physical therapy follow up appointments to help address her pain complaints and educate her in self care techniques. She is not appropriate for manual therapy for her pelvic pain, but will benefit from physical therapy as it relates to her pelvic pain condition; therefor new goals will be set today if you agree to continuation of therapy. Recommend therapy only 1x/ month due to pt's insurance limitations in visits per year . Physical Therapy Plan Frequency and Duration Frequency of Treatment Every Other Week Plan of Care Start Date 06/05/19 Plan of Care End Date 11/21/19 Therapeutic Interventions Therapeutic Interventions Aquatic Therapy Home Exercise Program Joint Mobilizations Manual Therapy Neuromuscular Re-education Patient/Caregiver Education Self-Care/Home Management Soft Tissue Mobilization Taping Therapeutic Exercises Modalities Biofeedback Cold Pack/Ice Massage Electric Stimulation Hot Packs Ultrasound Other Referrals/Consults Referrals/Consults Recommended Psychological mindfullness training. Next Visit Focus/Plan Next Note Type Treatment Note Next Visit Plan STM for gluteal & LBP if needed. Pt education in vulvar stretching at vaginal opening only, after 12 weeks gestation. Discuss aquatic therapy. Neuro anny for PF relaxation. Review Yoga poses for PF relaxation appropriate for status.
--- NOTE | 2019-06-16 16:41 | PT.OTN ---
Current Diagnoses Vaginismus (06/16/19) Physical Therapy Treatment Note PT-OP-A Visit Information Start: 02/20/19 17:49 Freq: Status: Active Protocol: Document 06/16/19 09:49 LRN (Rec: 06/16/19 10:37 LRN [id number]) Out-Patient Physical Therapy Visit Information Visit Information Visit Type Treatment Note Visit Note Pt 11 weeks Visit Start Time 09:49 Visit Stop Time 10:37 Total Visit Minutes 48 Visit Number 8 Number of CARDING MACHINE FEEDER Visits 0 Evaluation Information Evaluation Date 02/23/19 Precautions Precautions Recent + test per over the counter testing (05/02). Very fragile external pelvic floor in area of transverse perineum. Multiple endometriosus ablation surgeries. Presacral neurectomy 07/2018. PT-OP-B Current Condition Start: 02/20/19 17:49 Freq: Status: Active Protocol: Document 02/23/19 09:09 LRN (Rec: 02/23/19 10:09 LRN [id number]) Current Condition History of Current Condition Onset Date 2 yrs ago Current Complaints Pelvic floor dysfunction, pain spasms, syncing contractions History of Current Condition Pelvic Floor (PF) pain started 3 yrs ago, but the current type of PF pain started ~ 2yrs ago that has persisted. She reports having rectum spasms before the 2nd endometriosis ablation surgery in 10/2017 that was 2 cysts impinging on rectum canal, but now she reports its a big problem. She states the cysts are a reoccuring problem with menstrual cycle; therefore the pain is a reoccuring problem as well. Her menstrual cycles are irregular; therefore her pain onset is irregular with no pattern noted. She reports suffering from chronic constipation that has worsened in the last few years. She reports daily urine leakage of a few drops and has to change panty liners 2-3 times a day. She states abdomen stretching sometimes ilicits the lower abdominal and PF pain. Pt prefers to defer anal assessment at this time and will try to have records sent from [facility] PT to [facility]. Prior Treatments and Tests Pelvic floor physical therapy at [facility] that was interrupted due to health problems of the physical therapist. Treatment Goals Patient/Caregiver Goals Pt goal is to get everything back into place, meaning to have her muscles work in a normal sequence, and to learn how to manage her pain and spasms in the rectum and lower abdomen. 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 Current Functional Impairments (Reported) Functional Limitations- ADL's Pain limits ability to get out of bed ocassionally. Functional Limitations- Work/School Sometimes not able to make it to work due to pain. 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 Therapy/Recovery Pt report of: Pt pelvic floor health is very dry with frequent tearing. Constipation. Endometriosis Ablation surgery x 2 in 2015, 2017 (removing 4 areas of endometriosis). Presacral neurectomy (07/2018). Interstitial Cystitis PT-OP-C Subjective Start: 02/20/19 17:49 Freq: Status: Active Protocol: Document 06/16/19 09:49 LRN (Rec: 06/16/19 10:37 LRN [id number]) OP-PT Subjective Patient Comments Patient Comments States she had an appt with Dr Harjit Butcher and was told she can do therapy for tense muscles externally. Peed 4 time in 1/ 2 hour. As of 2 days ago had a yeast infection and took meds for it. PT-OP-I Pelvic Floor Start: 02/20/19 17:49 Freq: Status: Active Protocol: Document 04/21/19 08:16 LRN (Rec: 04/21/19 18:24 LRN [id number]) Pelvic Floor Assessment SEMG (uV) Baseline 9.1 Relaxation Poor/Slow Holding Fair Stability of Hold Fair SEMG Stability of Rest Fair Comments Pelvic Floor Comments (04/21/19) Pt has high tone with relaxation. Strong PF contraction. Quick Flicks: Avg Work - 14.0 uV Avg rest - 10.7 uV Long Holds: Avg Work - 10.9 uV Avg rest - 9.6 uV PT-OP-K Range of Motion Start: 02/20/19 17:49 Freq: Status: Active Protocol: Document 06/05/19 09:49 LRN (Rec: 06/05/19 10:54 LRN [id number]) Hip Goniometric Range of Motion Hip Right Passive Flexion w/Knee Flexed 105 Internal Rotation 30 External Rotation 85 Left Passive Flexion w/Knee Flexed 125 Internal Rotation 40 External Rotation 70 PT-OP-M Strength Start: 02/20/19 17:49 Freq: Status: Active Protocol: Document 02/23/19 09:09 LRN (Rec: 02/23/19 10:09 LRN [id number]) Hip Strength Hip Manual Muscle Testing Right Flexion (L2) 4+ Good+ Extension (S1) 5 Normal Abduction 5 Normal Adduction 5 Normal External Rotation 5 Normal Internal Rotation 4- Good- Comments Pain with testing of: L hip ext at L lower abdominal quadrant L hip AD at L lower abdominal quadrant Left Flexion (L2) 4+ Good+ Extension (S1) 5 Normal Abduction 4+ Good+ Adduction 2+ Poor+ External Rotation 4- Good- Internal Rotation 3+ Fair+ PT-OP-Q Treatments Start: 02/20/19 17:49 Freq: Status: Active Protocol: Document 06/16/19 09:49 LRN (Rec: 06/16/19 16:40 LRN [id number]) Manual Therapy Treatment Soft Tissue Mobilization Low Back Body Location Low Back Mobilization Type Strumming Body Position Sidelying Comments Pt L sidelye with folded towel under small of side, pillow between knees. Anal massage Body Location Bilateral Iliococcygeous > Lateral Transverse Perineum > Ischiocavernosus Mobilization Type Myofascial Release Intensity/Depth Superficial Body Position Sidelying Hip AD Body Location Bilateral hip AD Mobilization Type Sustained Pressure Trigger Point Release Intensity/Depth Superficial Body Position Supine PT-OP-R Modalities Start: 02/20/19 17:49 Freq: Status: Active Protocol: Document 04/14/19 08:20 LRN (Rec: 04/14/19 09:07 LRN [id number]) Electric Stimulation Electric Stimulation Interferential Current (IFC) Body Location Low Back Duration (Minutes) 15 Target/Sweep Sweep Patient Position Hooklying Combined With Heat/Cold Hot Pack PT-OP-T Assessment and Plan Start: 02/20/19 17:49 Freq: Status: Active Protocol: Document 06/16/19 09:49 LRN (Rec: 06/16/19 16:40 LRN [id number]) Physical Therapy Assessment Assessment Summary Assessment Pt ~11 weeks . Experiencing anal and vaginal pain. Today her vaginal pain is worse. She is anxious over her increased urination times during the day and her progressing . The pt tolerated anal massage well and has increased hip AD tightness that is possibly causing vaginal tightness and pain. Pt is unable to reduce her work hours and is finding she is having a hard time to sleep; therefore adding to the worsening her pain perception . Physical Therapy Plan Frequency and Duration Frequency of Treatment Every Other Week Plan of Care Start Date 06/05/19 Plan of Care End Date 11/21/19 Next Visit Focus/Plan Next Note Type Treatment Note Next Visit Plan Check # or weeks . STM for gluteal & LBP if needed. Discuss with vulvar stretching at vaginal opening only, after 12 weeks gestation. Discuss aquatic therapy. Neuro anny for PF relaxation. Review Yoga poses for PF relaxation appropriate for status.
--- NOTE | 2019-06-19 17:20 | PT-OP ANOTE ---
12:15. Per telephone. Spoke with Dr. Sarah Butcher. Dr. Butcher agreed that the pt will benefit from continued physical therapy for perineal massage and other soft tissue massage. She states she has no restrictions for her patients and feels the pt should continue therapy to help her manage her pelvic pain as her progresses. I recommended that the pt seek a psychological evaluation to help her manage her pain.
--- NOTE | 2019-09-08 16:23 | PT.OTN ---
Current Diagnoses Vaginismus (09/08/19) Physical Therapy Treatment Note PT-OP-A Visit Information Start: 02/20/19 17:49 Freq: Status: Active Protocol: Document 09/08/19 08:20 LRN (Rec: 09/08/19 09:11 LRN [id number]) Out-Patient Physical Therapy Visit Information Visit Information Visit Type Treatment Note Visit Note Pt is 23 weeks + 1 day present . 01/01 since last prog note. Visit Start Time 08:20 Visit Stop Time 09:11 Total Visit Minutes 51 Visit Number 9 Number of TRUST ADMINISTRATOR Visits 0 Evaluation Information Evaluation Date 02/23/19 Precautions Precautions Currently . Very fragile external pelvic floor in area of transverse perineum. Multiple endometriosis ablation surgeries. Presacral neurectomy 07/2018. PT-OP-B Current Condition Start: 02/20/19 17:49 Freq: Status: Active Protocol: Document 02/23/19 09:09 LRN (Rec: 02/23/19 10:09 LRN [id number]) Current Condition History of Current Condition Onset Date 2 yrs ago Current Complaints Pelvic floor dysfunction, pain spasms, syncing contractions History of Current Condition Pelvic Floor (PF) pain started 3 yrs ago, but the current type of PF pain started ~ 2yrs ago that has persisted. She reports having rectum spasms before the 2nd endometriosis ablation surgery in 10/2017 that was 2 cysts impinging on rectum canal, but now she reports its a big problem. She states the cysts are a reoccuring problem with menstrual cycle; therefore the pain is a reoccuring problem as well. Her menstrual cycles are irregular; therefore her pain onset is irregular with no pattern noted. She reports suffering from chronic constipation that has worsened in the last few years. She reports daily urine leakage of a few drops and has to change panty liners 2-3 times a day. She states abdomen stretching sometimes ilicits the lower abdominal and PF pain. Pt prefers to defer anal assessment at this time and will try to have records sent from [facility] PT to [facility]. Prior Treatments and Tests Pelvic floor physical therapy at [facility] that was interrupted due to health problems of the physical therapist. Treatment Goals Patient/Caregiver Goals Pt goal is to get everything back into place, meaning to have her muscles work in a normal sequence, and to learn how to manage her pain and spasms in the rectum and lower abdomen. 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 Current Functional Impairments (Reported) Functional Limitations- ADL's Pain limits ability to get out of bed ocassionally. Functional Limitations- Work/School Sometimes not able to make it to work due to pain. 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 Therapy/Recovery Pt report of: Pt pelvic floor health is very dry with frequent tearing. Constipation. Endometriosis Ablation surgery x 2 in 2015, 2017 (removing 4 areas of endometriosis). Presacral neurectomy (07/2018). Interstitial Cystitis PT-OP-C Subjective Start: 02/20/19 17:49 Freq: Status: Active Protocol: Document 09/08/19 08:20 LRN (Rec: 09/08/19 09:11 LRN [id number]) OP-PT Subjective Patient Comments Patient Comments Pt reports rectal spasms have been very bad, all day. Sometimes 1 hr between spasms, sometimes every couple minutes. Spasm is at the opening and up the back. Seeing chiro 1x/week due to back pain. Pt reports being very anxious about tearing of PF with childbearing. Finances are a burden; therefore would like to continue every other week. She is agreeable to aquatic therapy. PT-OP-I Pelvic Floor Start: 02/20/19 17:49 Freq: Status: Active Protocol: Document 04/21/19 08:16 LRN (Rec: 04/21/19 18:24 LRN [id number]) Pelvic Floor Assessment SEMG (uV) Baseline 9.1 Relaxation Poor/Slow Holding Fair Stability of Hold Fair SEMG Stability of Rest Fair Comments Pelvic Floor Comments (04/21/19) Pt has high tone with relaxation. Strong PF contraction. Quick Flicks: Avg Work - 14.0 uV Avg rest - 10.7 uV Long Holds: Avg Work - 10.9 uV Avg rest - 9.6 uV PT-OP-K Range of Motion Start: 02/20/19 17:49 Freq: Status: Active Protocol: Document 06/05/19 09:49 LRN (Rec: 06/05/19 10:54 LRN [id number]) Hip Goniometric Range of Motion Hip Right Passive Flexion w/Knee Flexed 105 Internal Rotation 30 External Rotation 85 Left Passive Flexion w/Knee Flexed 125 Internal Rotation 40 External Rotation 70 PT-OP-M Strength Start: 02/20/19 17:49 Freq: Status: Active Protocol: Document 02/23/19 09:09 LRN (Rec: 02/23/19 10:09 LRN [id number]) Hip Strength Hip Manual Muscle Testing Right Flexion (L2) 4+ Good+ Extension (S1) 5 Normal Abduction 5 Normal Adduction 5 Normal External Rotation 5 Normal Internal Rotation 4- Good- Comments Pain with testing of: L hip ext at L lower abdominal quadrant L hip AD at L lower abdominal quadrant Left Flexion (L2) 4+ Good+ Extension (S1) 5 Normal Abduction 4+ Good+ Adduction 2+ Poor+ External Rotation 4- Good- Internal Rotation 3+ Fair+ PT-OP-Q Treatments Start: 02/20/19 17:49 Freq: Status: Active Protocol: Document 09/08/19 08:20 LRN (Rec: 09/08/19 16:19 LRN [id number]) Manual Therapy Treatment Soft Tissue Mobilization Low Back Body Location Low Back Mobilization Type Strumming Body Position Prone Comments Prone on Pillow Anal massage Body Location Bilateral Iliococcygeous > Lateral Transverse Perineum > Ischiocavernosus Mobilization Type Myofascial Release Intensity/Depth Superficial Body Position Prone Comments Prone on Pillow TrP treatment at Iliococcygeous L Obturator Internus Body Location L OI at medial side of Ischial Tuberosity Mobilization Type Trigger Point Release Intensity/Depth Moderate Body Position Prone Comments Moved to R side due to greater discomfort on R side. R Obturator Internus Body Location R OI at medial side of Ischial Tuberosity Mobilization Type Trigger Point Release Intensity/Depth Superficial > Deep Body Position Prone Manual Techniques Sacral mob Type MET Body Location Sacrum Body Position Prone Comments Prone on Pillow. Mob of ETHAN to the right. Self-Care/Home Management Treatment Education Patient Education Pain Management Other Education Discussed at length pt pain, her self care program, options of care, expectations with progressing . PT-OP-R Modalities Start: 02/20/19 17:49 Freq: Status: Active Protocol: Document 04/14/19 08:20 LRN (Rec: 04/14/19 09:07 LRN [id number]) Electric Stimulation Electric Stimulation Interferential Current (IFC) Body Location Low Back Duration (Minutes) 15 Target/Sweep Sweep Patient Position Hooklying Combined With Heat/Cold Hot Pack PT-OP-T Assessment and Plan Start: 02/20/19 17:49 Freq: Status: Active Protocol: Document 09/08/19 08:20 LRN (Rec: 09/08/19 09:11 LRN [id number]) Physical Therapy Assessment Goals Rectal pain Impairment Severe rectal pain rated 6-7/ 10 Long-Term Goal (LTG) Pt will be able to lessen rectal pain to no greater than 4-5/10. LTG Duration 11/21/19 L Lower Abdominal Quadrant Pain Impairment L lower abdominal quadrant pain with passive & active hip ROM Long-Term Goal (LTG) Improve bilateral hip mobility and normalize hip strength without pain onset. LTG Duration DC GOAL: GOAL PARTIALLY MET Pelvic Floor tightness and pain Impairment Increased PF tightness with pain on palpation Long-Term Goal (LTG) Decreased PF tightness with pt able to urinate and defecate with less to no pain. LTG Duration DC GOAL: NOT ABLE TO ACHIEVE DUE TO Hip mobility Impairment Decreased hip rotation & AB mobility due to L lower abdominal quadrant pain Long-Term Goal (LTG) Pt will demonstrate improved hip mobility with lessening of pain with exercise activity and nighttime activities. LTG Duration DC GOAL: GOAL PARTIALLY MET. Pelvic Floor Pain Impairment Pain at Ishiocavernosus & Bulbocavernosus to palpation Short Term Goal (STG) Pt will be educated in proper vulva care. STG Duration 07/21/19 Bladder dysfunction Impairment Urination frequency of 10x/day and 1-2x/night. Short Term Goal (STG) Pt will be educated in urinary delay technique. Bladder Diary will be reviewed with urinary recommendations made as appropriate after bladder diary review. STG Duration 02/27/19 GOAL MET Long-Term Goal (LTG) Decrease of frequency of urination to 5-7x/day and 0-1x /night. LTG Duration DC GOAL. NOT ABLE TO ACHIEVE DUE TO Bowel dysfunction Impairment Constipation Short Term Goal (STG) Pt will be educated in proper bowel care (message and diet to be discussed). STG Duration 03/06/19 GOAL MET. Long-Term Goal (LTG) Pt will report decrease in constipation onset. LTG Duration DC GOAL. NOT ABLE TO ACHIEVE DUE TO HEP Impairment Pt has been started on HEP but lacks full self care HEP Mechanical Oxidizer Goal (LTG) Pt will be educated and independent on a self care HEP . Pt will be able to manage her abdominal and PF pain to a tolerable level with a HEP. LTG Duration 11/21/19 Assessment Summary Assessment Pt is 23 week + 1 day and experiencing anal spasms intermittent in nature with duration and amount being variable. Her anal spasms are probably exacerbated by neural stretching as she progresses in her . She continues to have urinary leakage and is working same number of hours. Pt is emotionally distressed and fatigued from lack of sleep. Pt will benefit from continued physical therapy for STM and instruction in self care as her progresses. She will also benefit from aquatic therapy if the pt is able to make time for it. Pt showed + response to STM with reported decrease in pain. Previous conversation with Dr. Butcher indicates Physical Therapy Plan Frequency and Duration Frequency of Treatment Every Other Week Plan of Care Start Date 06/05/19 Plan of Care End Date 11/21/19 Next Visit Focus/Plan Next Note Type Treatment Note Next Visit Plan Check for placement in aquatic therapy. Cont rx to address soft tissue component for anal spasms, perineal massage, STM to back. Assess pt's home use of XS dilator for trigger points at vaginal external sphincter. Neuro anny for PF relaxation. Review Yoga poses for PF relaxation appropriate for status.
--- NOTE | 2019-09-18 16:08 | PT.OTN ---
Current Diagnoses Vaginismus (09/08/19) Physical Therapy Treatment Note PT-OP-A Visit Information Start: 02/20/19 17:49 Freq: Status: Active Protocol: Document 09/18/19 11:45 LJ (Rec: 09/18/19 16:08 LJ [id number]) Out-Patient Physical Therapy Visit Information Visit Information Visit Type Aquatic Treatment Note Visit Start Time 11:45 Visit Stop Time 12:30 Total Visit Minutes 45 Visit Number 10 Number of BASKET HAND WEAVER Visits 1 Evaluation Information Evaluation Date 02/23/19 Precautions Precautions Currently . Very fragile external pelvic floor in area of transverse perineum. Multiple endometriosis ablation surgeries. Presacral neurectomy 07/2018. PT-OP-B Current Condition Start: 02/20/19 17:49 Freq: Status: Active Protocol: Document 02/23/19 09:09 LRN (Rec: 02/23/19 10:09 LRN [id number]) Current Condition History of Current Condition Onset Date 2 yrs ago Current Complaints Pelvic floor dysfunction, pain spasms, syncing contractions History of Current Condition Pelvic Floor (PF) pain started 3 yrs ago, but the current type of PF pain started ~ 2yrs ago that has persisted. She reports having rectum spasms before the 2nd endometriosis ablation surgery in 10/2017 that was 2 cysts impinging on rectum canal, but now she reports its a big problem. She states the cysts are a reoccuring problem with menstrual cycle; therefore the pain is a reoccuring problem as well. Her menstrual cycles are irregular; therefore her pain onset is irregular with no pattern noted. She reports suffering from chronic constipation that has worsened in the last few years. She reports daily urine leakage of a few drops and has to change panty liners 2-3 times a day. She states abdomen stretching sometimes ilicits the lower abdominal and PF pain. Pt prefers to defer anal assessment at this time and will try to have records sent from [facility] to [facility]. Prior Treatments and Tests Pelvic floor physical therapy at [facility] that was interrupted due to health problems of the physical therapist. Treatment Goals Patient/Caregiver Goals Pt goal is to get everything back into place, meaning to have her muscles work in a normal sequence, and to learn how to manage her pain and spasms in the rectum and lower abdomen. 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 Current Functional Impairments (Reported) Functional Limitations- ADL's Pain limits ability to get out of bed ocassionally. Functional Limitations- Work/School Sometimes not able to make it to work due to pain. 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 Therapy/Recovery Pt report of: Pt pelvic floor health is very dry with frequent tearing. Constipation. Endometriosis Ablation surgery x 2 in 2015, 2017 (removing 4 areas of endometriosis). Presacral neurectomy (07/2018). Interstitial Cystitis PT-OP-C Subjective Start: 02/20/19 17:49 Freq: Status: Active Protocol: Document 09/18/19 11:45 LJ (Rec: 09/18/19 16:08 LJ [id number]) OP-PT Subjective Patient Comments Patient Comments Pt states she has been having cramping in her legs at night and did not sleep well last night. She says she is a high strung person and has a difficult time relaxing. PT-OP-I Pelvic Floor Start: 02/20/19 17:49 Freq: Status: Active Protocol: Document 04/21/19 08:16 LRN (Rec: 04/21/19 18:24 LRN [id number]) Pelvic Floor Assessment SEMG (uV) Baseline 9.1 Relaxation Poor/Slow Holding Fair Stability of Hold Fair SEMG Stability of Rest Fair Comments Pelvic Floor Comments (04/21/19) Pt has high tone with relaxation. Strong PF contraction. Quick Flicks: Avg Work - 14.0 uV Avg rest - 10.7 uV Long Holds: Avg Work - 10.9 uV Avg rest - 9.6 uV PT-OP-K Range of Motion Start: 02/20/19 17:49 Freq: Status: Active Protocol: Document 06/05/19 09:49 LRN (Rec: 06/05/19 10:54 LRN [id number]) Hip Goniometric Range of Motion Hip Right Passive Flexion w/Knee Flexed 105 Internal Rotation 30 External Rotation 85 Left Passive Flexion w/Knee Flexed 125 Internal Rotation 40 External Rotation 70 PT-OP-M Strength Start: 02/20/19 17:49 Freq: Status: Active Protocol: Document 02/23/19 09:09 LRN (Rec: 02/23/19 10:09 LRN [id number]) Hip Strength Hip Manual Muscle Testing Right Flexion (L2) 4+ Good+ Extension (S1) 5 Normal Abduction 5 Normal Adduction 5 Normal External Rotation 5 Normal Internal Rotation 4- Good- Comments Pain with testing of: L hip ext at L lower abdominal quadrant L hip AD at L lower abdominal quadrant Left Flexion (L2) 4+ Good+ Extension (S1) 5 Normal Abduction 4+ Good+ Adduction 2+ Poor+ External Rotation 4- Good- Internal Rotation 3+ Fair+ PT-OP-Q Treatments Start: 02/20/19 17:49 Freq: Status: Active Protocol: Document 09/08/19 08:20 LRN (Rec: 09/08/19 16:19 LRN [id number]) Manual Therapy Treatment Soft Tissue Mobilization Low Back Body Location Low Back Mobilization Type Strumming Body Position Prone Comments Prone on Pillow Anal massage Body Location Bilateral Iliococcygeous > Lateral Transverse Perineum > Ischiocavernosus Mobilization Type Myofascial Release Intensity/Depth Superficial Body Position Prone Comments Prone on Pillow TrP treatment at Iliococcygeous L Obturator Internus Body Location L OI at medial side of Ischial Tuberosity Mobilization Type Trigger Point Release Intensity/Depth Moderate Body Position Prone Comments Moved to R side due to greater discomfort on R side. R Obturator Internus Body Location R OI at medial side of Ischial Tuberosity Mobilization Type Trigger Point Release Intensity/Depth Superficial > Deep Body Position Prone Manual Techniques Sacral mob Type MET Body Location Sacrum Body Position Prone Comments Prone on Pillow. Mob of ETHAN to the right. Self-Care/Home Management Treatment Education Patient Education Pain Management Other Education Discussed at length pt pain, her self care program, options of care, expectations with progressing . PT-OP-R Modalities Start: 02/20/19 17:49 Freq: Status: Active Protocol: Document 04/14/19 08:20 LRN (Rec: 04/14/19 09:07 LRN [id number]) Electric Stimulation Electric Stimulation Interferential Current (IFC) Body Location Low Back Duration (Minutes) 15 Target/Sweep Sweep Patient Position Hooklying Combined With Heat/Cold Hot Pack PT-OP-S Aquatic Treatment Start: 09/18/19 15:46 Freq: Status: Active Protocol: Document 09/18/19 11:45 LJ (Rec: 09/18/19 16:08 LJ [id number]) Aquatics Treatment Pool Entry/Exit Pool Entry/Exit Method Stairs Assistance Standby Assistance,Verbal Cues Water Walking Lunge Walk Water Level Chest Level Level of Assistance Verbal Cues Backwards Water Level Chest Level Level of Assistance Verbal Cues [place] Water Level Chest Level Level of Assistance Verbal Cues Sideways Water Level Chest Level Level of Assistance Verbal Cues Forwards Water Level Chest Level Comments cues for relaxation and posture Lower Extremity Stretches spiderman on wall with body swing Reps/Duration 4 min Comments gentle quad Body Position Standing Water Level Chest Level Equipment Small Noodle Comments HH on wall gasroc, soleus Body Position Standing Water Level Chest Level Reps/Duration 2x45 Comments bilateral HS Body Position Standing Water Level Chest Level Equipment Small Noodle Reps/Duration 2x45 Comments bilateral piriformis Body Position Standing Water Level Chest Level Reps/Duration 1 min each SKTC; DKTC Body Position Standing Water Level Chest Level Reps/Duration 1 min each [place]igo Activities [place]igo Activities Bicycle,Hip Abduction/ Adduction Equipment sm blue float Duration 12 min Comments gentle and slow movements PT-OP-T Assessment and Plan Start: 02/20/19 17:49 Freq: Status: Active Protocol: Document 09/18/19 11:45 (Rec: 09/18/19 16:08 [id number]) Physical Therapy Assessment Goals Rectal pain Impairment Severe rectal pain rated 6-7/ 10 Snf Goal (LTG) Pt will be able to lessen rectal pain to no greater than 4-5/10. LTG Duration 11/21/19 Pelvic Floor Pain Impairment Pain at Ishiocavernosus & Bulbocavernosus to palpation Short Term Goal (STG) Pt will be educated in proper vulva care. STG Duration 07/21/19 HEP Impairment Pt has been started on HEP but lacks full self care HEP Snf Goal (LTG) Pt will be educated and independent on a self care HEP . Pt will be able to manage her abdominal and PF pain to a tolerable level with a HEP. LTG Duration 11/21/19 Assessment Summary Assessment Pt encouraged to keep movements gentle within painfree ROM. No complaint of pain or spasming during exercises. Tolerated gentle movements well. Physical Therapy Plan Frequency and Duration Frequency of Treatment Every Other Week Plan of Care Start Date 06/05/19 Plan of Care End Date 11/21/19 Next Visit Focus/Plan Next Note Type Treatment Note Next Visit Plan Continue with gentle movement in the pool with stretching to inprove soft tissue elasticity and overall relaxation. Teach Chi to pt for self care if going to pool independently.
--- NOTE | 2019-10-16 17:46 | PT.OTN ---
Current Diagnoses Vaginismus (10/16/19) Physical Therapy Treatment Note PT-OP-A Visit Information Start: 02/20/19 17:49 Freq: Status: Active Protocol: Document 10/16/19 11:00 LJ (Rec: 10/16/19 17:46 LJ [id number]) Out-Patient Physical Therapy Visit Information Visit Information Visit Type Aquatic Treatment Note Visit Start Time 11:00 Visit Stop Time 11:45 Total Visit Minutes 45 Visit Number 11 Number of BELT SANDER Visits 1 Precautions Precautions Currently . Very fragile external pelvic floor in area of transverse perineum. Multiple endometriosis ablation surgeries. Presacral neurectomy 07/2018. PT-OP-B Current Condition Start: 02/20/19 17:49 Freq: Status: Active Protocol: Document 02/23/19 09:09 LRN (Rec: 02/23/19 10:09 LRN [id number]) Current Condition History of Current Condition Onset Date 2 yrs ago Current Complaints Pelvic floor dysfunction, pain spasms, syncing contractions History of Current Condition Pelvic Floor (PF) pain started 3 yrs ago, but the current type of PF pain started ~ 2yrs ago that has persisted. She reports having rectum spasms before the 2nd endometriosis ablation surgery in 10/2017 that was 2 cysts impinging on rectum canal, but now she reports its a big problem. She states the cysts are a reoccuring problem with menstrual cycle; therefore the pain is a reoccuring problem as well. Her menstrual cycles are irregular; therefore her pain onset is irregular with no pattern noted. She reports suffering from chronic constipation that has worsened in the last few years. She reports daily urine leakage of a few drops and has to change panty liners 2-3 times a day. She states abdomen stretching sometimes ilicits the lower abdominal and PF pain. Pt prefers to defer anal assessment at this time and will try to have records sent from [facility] to [facility]. Prior Treatments and Tests Pelvic floor physical therapy at [facility] that was interrupted due to health problems of the physical therapist. Treatment Goals Patient/Caregiver Goals Pt goal is to get everything back into place, meaning to have her muscles work in a normal sequence, and to learn how to manage her pain and spasms in the rectum and lower abdomen. 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 Current Functional Impairments (Reported) Functional Limitations- ADL's Pain limits ability to get out of bed ocassionally. Functional Limitations- Work/School Sometimes not able to make it to work due to pain. 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 Therapy/Recovery Pt report of: Pt pelvic floor health is very dry with frequent tearing. Constipation. Endometriosis Ablation surgery x 2 in 2015, 2017 (removing 4 areas of endometriosis). Presacral neurectomy (07/2018). Interstitial Cystitis PT-OP-C Subjective Start: 02/20/19 17:49 Freq: Status: Active Protocol: Document 10/16/19 11:00 LJ (Rec: 10/16/19 17:46 LJ [id number]) OP-PT Subjective Patient Comments Patient Comments Pt states she is having difficulty with rectal spasms and incontinence. States her lower abdomen is sore and perineal ligaments very tight. PT-OP-I Pelvic Floor Start: 02/20/19 17:49 Freq: Status: Active Protocol: Document 04/21/19 08:16 LRN (Rec: 04/21/19 18:24 LRN [id number]) Pelvic Floor Assessment SEMG (uV) Baseline 9.1 Relaxation Poor/Slow Holding Fair Stability of Hold Fair SEMG Stability of Rest Fair Comments Pelvic Floor Comments (04/21/19) Pt has high tone with relaxation. Strong PF contraction. Quick Flicks: Avg Work - 14.0 uV Avg rest - 10.7 uV Long Holds: Avg Work - 10.9 uV Avg rest - 9.6 uV PT-OP-K Range of Motion Start: 02/20/19 17:49 Freq: Status: Active Protocol: Document 06/05/19 09:49 LRN (Rec: 06/05/19 10:54 LRN [id number]) Hip Goniometric Range of Motion Hip Right Passive Flexion w/Knee Flexed 105 Internal Rotation 30 External Rotation 85 Left Passive Flexion w/Knee Flexed 125 Internal Rotation 40 External Rotation 70 PT-OP-M Strength Start: 02/20/19 17:49 Freq: Status: Active Protocol: Document 02/23/19 09:09 LRN (Rec: 02/23/19 10:09 LRN [id number]) Hip Strength Hip Manual Muscle Testing Right Flexion (L2) 4+ Good+ Extension (S1) 5 Normal Abduction 5 Normal Adduction 5 Normal External Rotation 5 Normal Internal Rotation 4- Good- Comments Pain with testing of: L hip ext at L lower abdominal quadrant L hip AD at L lower abdominal quadrant Left Flexion (L2) 4+ Good+ Extension (S1) 5 Normal Abduction 4+ Good+ Adduction 2+ Poor+ External Rotation 4- Good- Internal Rotation 3+ Fair+ PT-OP-Q Treatments Start: 02/20/19 17:49 Freq: Status: Active Protocol: Document 09/08/19 08:20 LRN (Rec: 09/08/19 16:19 LRN [id number]) Manual Therapy Treatment Soft Tissue Mobilization Low Back Body Location Low Back Mobilization Type Strumming Body Position Prone Comments Prone on Pillow Anal massage Body Location Bilateral Iliococcygeous > Lateral Transverse Perineum > Ischiocavernosus Mobilization Type Myofascial Release Intensity/Depth Superficial Body Position Prone Comments Prone on Pillow TrP treatment at Iliococcygeous L Obturator Internus Body Location L OI at medial side of Ischial Tuberosity Mobilization Type Trigger Point Release Intensity/Depth Moderate Body Position Prone Comments Moved to R side due to greater discomfort on R side. R Obturator Internus Body Location R OI at medial side of Ischial Tuberosity Mobilization Type Trigger Point Release Intensity/Depth Superficial > Deep Body Position Prone Manual Techniques Sacral mob Type MET Body Location Sacrum Body Position Prone Comments Prone on Pillow. Mob of ETHAN to the right. Self-Care/Home Management Treatment Education Patient Education Pain Management Other Education Discussed at length pt pain, her self care program, options of care, expectations with progressing . PT-OP-R Modalities Start: 02/20/19 17:49 Freq: Status: Active Protocol: Document 04/14/19 08:20 LRN (Rec: 04/14/19 09:07 LRN [id number]) Electric Stimulation Electric Stimulation Interferential Current (IFC) Body Location Low Back Duration (Minutes) 15 Target/Sweep Sweep Patient Position Hooklying Combined With Heat/Cold Hot Pack PT-OP-S Aquatic Treatment Start: 09/18/19 15:46 Freq: Status: Active Protocol: Document 10/16/19 11:00 LJ (Rec: 10/16/19 17:46 LJ [email or web address]) Aquatics Treatment Pool Entry/Exit Pool Entry/Exit Method Stairs Assistance Standby Assistance,Verbal Cues Water Walking Lunge Walk Water Level Chest Level Level of Assistance Verbal Cues Backwards Water Level Chest Level Level of Assistance Verbal Cues [place] January Water Level Chest Level Level of Assistance Verbal Cues Sideways Water Level Chest Level Level of Assistance Verbal Cues Forwards Water Level Chest Level Comments cues for relaxation and posture Lower Extremity Exercises hip CCW, CW Water Level Chest Level Reps/Duration 12 each dir, bilat hip figure 8s Body Position Standing Water Level Chest Level Reps/Duration 12 bilat Comments gentle hip flex/ext; abd/add Body Position Standing Water Level Chest Level Reps/Duration 15 each Comments gentle Lower Extremity Stretches lower back Details on wall Reps/Duration 45x2 spiderman on wall with body swing Reps/Duration 4 min Comments gentle quad Body Position Standing Water Level Chest Level Equipment Small Noodle Comments HH on wall gasroc, soleus Body Position Standing Water Level Chest Level Reps/Duration 2x45 Comments bilateral HS Body Position Standing Water Level Chest Level Equipment Small Noodle Reps/Duration 2x45 Comments bilateral piriformis Body Position Standing Water Level Chest Level Reps/Duration 1 min each SKTC; DKTC Body Position Standing Water Level Chest Level Reps/Duration 1 min each [place] Activities [place] Activities Bicycle,Hip Abduction/ Adduction Equipment white noodle Duration 10 min Comments gentle and slow movements PT-OP-T Assessment and Plan Start: 02/20/19 17:49 Freq: Status: Active Protocol: Document 10/16/19 11:00 JUSTIN (Rec: 10/16/19 17:46 [email or web address]) Physical Therapy Assessment Goals Rectal pain Impairment Severe rectal pain rated 6-7/ 10 Waiter/Waitress First Class Goal (LTG) Pt will be able to lessen rectal pain to no greater than 4-5/10. LTG Duration 11/21/19 Pelvic Floor Pain Impairment Pain at Ishiocavernosus & Bulbocavernosus to palpation Short Term Goal (STG) Pt will be educated in proper vulva care. STG Duration 07/21/19 HEP Impairment Pt has been started on HEP but lacks full self care HEP Retirement Goal (LTG) Pt will be educated and independent on a self care HEP . Pt will be able to manage her abdominal and PF pain to a tolerable level with a HEP. LTG Duration 11/21/19 Assessment Summary Assessment Pt encouraged to keep movements gentle within pain free ROM. Reported she felt the best pain relief in deep water with gentle movements. Pt needs cueing to keep exercises to a reduced ROM and intensity. No c/o increased pain other than lower abdominal discomfort due to baby movement Physical Therapy Plan Frequency and Duration Frequency of Treatment Every Other Week Plan of Care Start Date 06/05/19 Plan of Care End Date 11/21/19 Next Visit Focus/Plan Next Note Type Treatment Note Next Visit Plan Continue with gentle movement in the pool with stretching to improve soft tissue elasticity and overall relaxation. Teach Chi to pt for self care if going to pool independently.
--- NOTE | 2019-11-23 17:20 | PT-OP ANOTE ---
Per telephone conversation the pt states she is now on bedrest and almost delivered the baby this week. She is 34 weeks with a goal of delivering her until at least week 27; therefore the pt will discharged from physical therapy. Pt understands she will need a new referral if she wants to return for PT post baby .
--- NOTE | 2019-11-27 12:06 | PT.OPDS ---
Current Diagnoses Vaginismus (10/16/19) Visit Care Team Role Provider Type Rachel Merchant PA-C Primary Care Provider Advanced Director And Professor Specialty: Medical Address: [address] [place] [address], [address], [place], [address] Email: [email or web address] FLAKITA Casillas Attending Provider Non-Staff Specialty: Nursing Address: [address] [place] [address], [id number] Email: Visit Number Visit Number 11 Discharge Summary PT-OP-B Current Condition Start: 02/20/19 17:49 Freq: Status: Active Protocol: Document 02/23/19 09:09 LRN (Rec: 02/23/19 10:09 LRN [id number]) Current Condition History of Current Condition Onset Date 2 yrs ago Current Complaints Pelvic floor dysfunction, pain spasms, syncing contractions History of Current Condition Pelvic Floor (PF) pain started 3 yrs ago, but the current type of PF pain started ~ 2yrs ago that has persisted. She reports having rectum spasms before the 2nd endometriosis ablation surgery in 10/2017 that was 2 cysts impinging on rectum canal, but now she reports its a big problem. She states the cysts are a reoccuring problem with menstrual cycle; therefore the pain is a reoccuring problem as well. Her menstrual cycles are irregular; therefore her pain onset is irregular with no pattern noted. She reports suffering from chronic constipation that has worsened in the last few years. She reports daily urine leakage of a few drops and has to change panty liners 2-3 times a day. She states abdomen stretching sometimes ilicits the lower abdominal and PF pain. Pt prefers to defer anal assessment at this time and will try to have records sent from [facility] PT to [facility]. Prior Treatments and Tests Pelvic floor physical therapy at [facility] that was interrupted due to health problems of the physical therapist. Treatment Goals Patient/Caregiver Goals Pt goal is to get everything back into place, meaning to have her muscles work in a normal sequence, and to learn how to manage her pain and spasms in the rectum and lower abdomen. 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 Current Functional Impairments (Reported) Functional Limitations- ADL's Pain limits ability to get out of bed ocassionally. Functional Limitations- Work/School Sometimes not able to make it to work due to pain. 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 Therapy/Recovery Pt report of: Pt pelvic floor health is very dry with frequent tearing. Constipation. Endometriosis Ablation surgery x 2 in 2015, 2017 (removing 4 areas of endometriosis). Presacral neurectomy (07/2018). Interstitial Cystitis PT-OP-T Assessment and Plan Start: 02/20/19 17:49 Freq: Status: Active Protocol: Document 11/23/19 16:30 LRN (Rec: 11/23/19 17:28 LRN [id number]) Physical Therapy Assessment Goals Rectal pain Impairment Severe rectal pain rated 6-7/ 10 Nursing Home Goal (LTG) Pt will be able to lessen rectal pain to no greater than 4-5/10. LTG Duration 11/21/19 DC GOAL: NOT ABLE TO ACHIEVE DUE TO L Lower Abdominal Quadrant Pain Impairment L lower abdominal quadrant pain with passive & active hip ROM Classification Inspector Goal (LTG) Improve bilateral hip mobility and normalize hip strength without pain onset. LTG Duration DC GOAL: GOAL PARTIALLY MET Pelvic Floor tightness and pain Impairment Increased PF tightness with pain on palpation Nursing Home Goal (LTG) Decreased PF tightness with pt able to urinate and defecate with less to no pain. LTG Duration DC GOAL: NOT ABLE TO ACHIEVE DUE TO Hip mobility Impairment Decreased hip rotation & AB mobility due to L lower abdominal quadrant pain Nursing Home Goal (LTG) Pt will demonstrate improved hip mobility with lessening of pain with exercise activity and nighttime activities. LTG Duration DC GOAL: GOAL PARTIALLY MET. Pelvic Floor Pain Impairment Pain at Ishiocavernosus & Bulbocavernosus to palpation Short Term Goal (STG) Pt will be educated in proper vulva care. STG Duration 07/21/19 (04/21/19: GOAL PARTIALLY MET) Bladder dysfunction Impairment Urination frequency of 10x/day and 1-2x/night. Short Term Goal (STG) Pt will be educated in urinary delay technique. Bladder Diary will be reviewed with urinary recommendations made as appropriate after bladder diary review. STG Duration 02/27/19 GOAL MET Classification Inspector Goal (LTG) Decrease of frequency of urination to 5-7x/day and 0-1x /night. LTG Duration DC GOAL. NOT ABLE TO ACHIEVE DUE TO Bowel dysfunction Impairment Constipation Short Term Goal (STG) Pt will be educated in proper bowel care (message and diet to be discussed). STG Duration 03/06/19 GOAL MET. Classification Inspector Goal (LTG) Pt will report decrease in constipation onset. LTG Duration DC GOAL. NOT ABLE TO ACHIEVE DUE TO HEP Impairment Pt has been started on HEP but lacks full self care HEP Classification Inspector Goal (LTG) Pt will be educated and independent on a self care HEP . Pt will be able to manage her abdominal and PF pain to a tolerable level with a HEP. LTG Duration 11/21/19 (11/23/19: Goal Partially Met, pt has HEP as appropriate) Assessment Summary Assessment Per telephone conversation 11/23 the pt almost delivered and is now on bedrest. Her last 2 PT sessions was in the pool and the pt appeared to have done very well in the water with movements of gentle painfree ROM. The pt hopes to return to PT after delivery and understands she will need a new referral to come back. No further therapy is planned at this time. Physical Therapy Plan Frequency and Duration Frequency of Treatment Every Other Week Plan of Care Start Date 06/05/19 Plan of Care End Date 11/21/19 Discharge Physical Therapy Discharge Reasons Change in Medical Status Discharge Comments Pt hopes to return to PT post baby delivery. Yumiko understands a new referral will be needed. Thank you for your referral.
== END 2019-12-07 12:18 ==
LOC: PHYS 11:00
PROVIDERS: PCP Physician Assistant; Visit Provider Registered Nurse
DX: N94.2 Vaginismus (principal)
CPT/HCPCS: 97014; 97110; 97112; 97113; 97140; 97162; 97535; G0283

== ENCOUNTER 2019-10-26 18:28 | Outpatient (CLI) | payer OTHER, SELFPAY ==
[2019-10-26 19:59] LABS: Appearance Urine UA CLEAR; Bilirubin Urine UA NEGATIVE (NEGATIVE); Color Urine UA YELLOW; Glucose Urine UA NEGATIVE (Negative); Ketones Urine UA NEGATIVE (NEGATIVE); Leukocyte Esterase Urine UA NEGATIVE (NEGATIVE); Nitrite Urine UA NEGATIVE (Negative); Occult Blood Urine UA NEGATIVE (Negative); Protein Urine UA NEGATIVE (Negative); Specific Gravity Urine UA <=1.005 (1.000-1.035); Urobilinogen Urine UA 0.2 E.U./dL (0.2)
--- NOTE | 2019-10-27 07:42 | P.TNLD_ITS ---
Visit Information Visit Information Date of evaluation: 10/26/19 Primary OB Provider: Ailyn Butcher On-call OB Provider: Kay Kang Reason for Evaluation: Yes non-stress test Comments/Additional reasons for admission: Patient felt jittery while driving in the dark and noticed the white lines on the road were wavy so came to the center. Symptoms resolved prior to arrival at the center. She has a complicated medical history but denied headaches, abdominal pain, swelling, contractions, bleeding or leaking of fluid. Reports good movement. Vital Signs Vital Signs: T 36.6 BP 131/88 P 94 PFSH Social History Smoking Status: Never smoker second hand exposure: No alcohol intake: current substance use type: does not use Objective Labs Labs: Laboratory Results - last 24 hr 10/26/19 19:10 Urine Color Yellow Urine Appearance Clear Urine pH 7.0 Ur Specific [place] <=1.005 Urine Protein Negative Urine Glucose (UA) Negative Urine Ketones Negative Urine Occult Blood Negative Urine Nitrate Negative Urine Bilirubin Negative Urine Urobilinogen 0.2 Ur Leukocyte Esterase Negative Evaluation Evaluation Baseline heart rate: 135 Variability: Moderate (11-25) monitor decelerations: Absent Laboratory results: Laboratory Tests 10/26/19 19:10 Urine Color Yellow Urine Appearance Clear Urine pH 7.0 Ur Specific [place] <=1.005 Urine Protein Negative Urine Glucose (UA) Negative Urine Ketones Negative Urine Occult Blood Negative Urine Nitrate Negative Urine Bilirubin Negative Urine Urobilinogen 0.2 Ur Leukocyte Esterase Negative Diagnosis, Plan/Disposition Final Diagnosis (1) 30 weeks gestation of : Current Visit: No Status: Acute Plan/Disposition Plan: 23 year old at 30 weeks gestation with complaints of vision changes and jitteriness while driving. Denied headache, abdominal pain, swelling, contractions, bleeding or leaking of fluid. BP normal. UA negative. NST reactive. Patient will follow up in clinic as scheduled.
== END 2019-10-26 20:05 | disposition home or self-care (01) ==
LOC: OB 10-27 11:52
PROVIDERS: PCP Physician Assistant; Visit Provider Family Medicine
DX: O26.893 Other specified pregnancy related conditions, third trimester (principal); Z3A.30 30 weeks gestation of pregnancy; H53.9 Unspecified visual disturbance; R51 Headache
CPT/HCPCS: 59025; 81003; G0378; G0379

== ENCOUNTER 2019-11-09 15:49 | Outpatient (CLI) | payer OTHER, SELFPAY | END 2019-11-09 16:36 | disposition home or self-care (01) | LOC: OB 11-17 11:15 | PROVIDERS: PCP Physician Assistant; Visit Provider Obstetrics & Gynecology | DX: O26.893 Other specified pregnancy related conditions, third trimester (principal); R10.9 Unspecified abdominal pain; H53.9 Unspecified visual disturbance; Z3A.32 32 weeks gestation of pregnancy | CPT/HCPCS: 59025; G0378; G0379 ==

== ENCOUNTER → 2019-11-14 08:14 | Outpatient (CLI) | payer OTHER, SELFPAY ==
[2019-11-14 10:08] LABS: Add Manual Diff / Slide Review NO; Basophils Absolute Auto 100 /uL (0-100); Basophils Percent Auto 0.5 % (0-2); Eosinophils Absolute Auto 100 /uL (0-450); Eosinophils Percent Auto 0.7 % (2-4); Hematocrit 32.3 % (36-46); Hemoglobin 11.2 g/dL (12.0-16.0); Lymphocytes Absolute Auto 2200 /uL (1100-4500); Lymphocytes Percent Auto 22.7 % (25-40); Mean Corpuscular HGB Conc 34.5 % (30-36); Mean Corpuscular Hemoglobin 30.2 PG (26-34); Mean Corpuscular Volume 87.5 fL (80-100); Monocytes Absolute Auto 500 /uL (0-900); Monocytes Percent Auto 5.3 % (3-14); Neutrophils Absolute Auto 7000 /uL (1500-7000); Neutrophils Percent Auto 70.8 % (50-75); Platelet Count 343 X10^3/uL (150-400); Red Blood Cell Count 3.69 X10^6/uL (4.0-5.2); Red Cell Distribution Width 12.4 % (11.6-14.8); White Blood Cell Count 9.8 X10^3/uL (4.5-11.0)
[2019-11-14 10:23] LABS: Aspartate Aminotransferase 24 IU/L (14-36); BUN Creatinine Ratio 8.3 (6-22); Blood Urea Nitrogen 5 mg/dL (7-17); Estimated Glomerular Filt Rate > 60.0 mL/min (>60); Uric Acid 3.8 mg/dL (2.5-6.2)
[2019-11-14 10:27] LABS: Creatinine Urine Random 22.2 mg/dL; Protein (Total) Urine Random 17 mg/dL (0-12); Protein Creatinine Ratio Urine 0.76 GRAM/24H
== END ==
PROVIDERS: PCP Physician Assistant; Visit Provider Obstetrics & Gynecology
DX: H53.9 Unspecified visual disturbance (principal)
CPT/HCPCS: 36415; 82570; 84156; 84450; 84550; 85025

== ENCOUNTER 2019-11-17 09:13 | Inpatient (IN) | payer OTHER, SELFPAY ==
--- NOTE | 2019-11-17 | DI.US.S_ITS ---
PROCEDURE: US OB LIMITED INDICATIONS: EFW; BPP OUTSIDE/PRIOR DATING DATA: Last menstrual period (LMP): 03/28/2019. LMP-based estimated date of delivery (CONNOR): 01/02/2020. First dating scan (date and location): 06/14/[address] Butcher's office. Estimated date of delivery (CONNOR) from first dating scan: 01/07/2020. TECHNIQUE: Real-time scanning was performed of the fetus, with image documentation and biometric measurements. Endovaginal scanning: no COMPARISON: [facility], OB >= 14 WEEKS FETUS, 08/18/2019, 9:33. [facility] OB >= 14 WEEKS FETUS, 08/02/2019, 12:07. [facility] OB >= 14 WEEKS FETUS, 07/19/2019, 11:32. [facility], OB LIMITED, 07/13/2019, 13:37. FINDINGS: General: A single living intrauterine gestation is present. Presentation: Vertex. Placenta: Placental position is right fundal, without previa. Amniotic fluid index: 14.3 cm, normal range is 5-24 cm. heart rate: 122 beats per minute. Maternal cervical canal: 3.4 cm long. Normal lower limit is 2.5 cm. biometrics: Biparietal diameter: 32 weeks and 1 day Head circumference: 31 weeks 4 days Abdominal circumference: 32 weeks 1 day Femur length: 31 weeks 3 days Estimated gestational age from initial scan: 32 weeks 5 days. Composite gestational age from present scan: 31 weeks 6 days Estimated weight and percentile: 1849 gm; 17% for gestational age Measurement variability for biometric dating: +/- 7 days from 14 weeks to 15 weeks 6 days gestation, +/- 10 days from 16 weeks to 21 weeks 6 days gestation, +/- 2 weeks from 22 weeks to 27 weeks 6 days gestation, +/- 3 weeks for 28 weeks gestation or later. weight reference: 4500 g or EFW >90/95% is considered macrosomia or large for gestational age. EFW <10% is small for gestational age. EFW 5% or less is considered intra-uterine growth restriction. Biophysical profile: 06/29. Tone: 2 Movement: 2 Respiration: 2 Largest pocket of amniotic fluid: 2 IMPRESSION: 1. A single living intrauterine gestation with appropriate growth. 2. Biophysical profile 06/29. Dictated by: Ed Marte M.D. on 11/17/2019 at 11:35 Approved by: Ed Marte M.D. on 11/17/2019 at 11:41
[2019-11-17 10:16] LABS: Add Manual Diff / Slide Review NO; Basophils Absolute Auto 100 /uL (0-100); Basophils Percent Auto 0.6 % (0-2); Eosinophils Absolute Auto 0 /uL (0-450); Eosinophils Percent Auto 0.2 % (2-4); Hematocrit 29.2 % (36-46); Hemoglobin 10.2 g/dL (12.0-16.0); Lymphocytes Absolute Auto 1600 /uL (1100-4500); Lymphocytes Percent Auto 17.2 % (25-40); Mean Corpuscular HGB Conc 34.8 % (30-36); Mean Corpuscular Hemoglobin 30.3 PG (26-34); Mean Corpuscular Volume 87.1 fL (80-100); Monocytes Absolute Auto 400 /uL (0-900); Monocytes Percent Auto 4.5 % (3-14); Neutrophils Absolute Auto 7300 /uL (1500-7000); Neutrophils Percent Auto 77.5 % (50-75); Platelet Count 285 X10^3/uL (150-400); Red Blood Cell Count 3.36 X10^6/uL (4.0-5.2); Red Cell Distribution Width 12.8 % (11.6-14.8); White Blood Cell Count 9.4 X10^3/uL (4.5-11.0)
[2019-11-17 10:27] LABS: Aspartate Aminotransferase 23 IU/L (14-36); Blood Urea Nitrogen 5 mg/dL (7-17); Estimated Glomerular Filt Rate > 60.0 mL/min (>60)
[2019-11-17 11:04] LABS: Appearance Urine UA CLEAR; Bilirubin Urine UA NEGATIVE (NEGATIVE); Color Urine UA YELLOW; Glucose Urine UA NEGATIVE (Negative); Ketones Urine UA NEGATIVE (NEGATIVE); Leukocyte Esterase Urine UA NEGATIVE (NEGATIVE); Nitrite Urine UA NEGATIVE (Negative); Occult Blood Urine UA NEGATIVE (Negative); Protein Urine UA NEGATIVE (Negative); Specific Gravity Urine UA <=1.005 (1.000-1.035); Urobilinogen Urine UA 0.2 E.U./dL (0.2)
[2019-11-17 11:17] LABS: Bacteria Urine Occasional (0-1); Culture Indicated Urine Cult Not Indicated; RBC Urine 0-1/HPF (0-5/HPF); Squamous Epithelial Cell Urine 0-1 /HPF (0-5/HPF); WBC Urine 0-1/HPF (0-5/HPF); pH Urine UA 7.5 (4.5-8.0)
[2019-11-17 11:47] LABS: Protein (Total) Urine Random 11 mg/dL (0-12); Protein Creatinine Ratio Urine 0.37 GRAM/24H
--- NOTE | 2019-11-17 15:55 | P.HPOB_ITS ---
OB HPI Date/Time Date of admission: 11/17/19 Date Patient Seen: 11/17/19 Time Patient Seen: 10:15 History of Present Condition Chief complaint: Observation : 1 Para: 2 Estimated Date of Delivery: 01/04/19 Estimated Gestational Age (weeks): 33 Narrative: Yumiko Madrigal is a 24 year old at 33 weeks 2 days presenting for evaluation for headaches and proteinuria in the setting of history of migraines. This patient presented for routine outpatient care at 32+2 and reported that for the past 3 weeks, she had had unchanged, constant headaches unresponsive to Tylenol. She was normotensive and had no protein on UA, and was sent for stat preeclampsia labs from clinic. She was unable to get these drawn until the next week, when she presented and was found to have proteinuria, and directed to the Center for further evaluation. She reports that since her clinic visit, her symptoms have been unchanged. These headaches are a dull ache behind the eyes, and are associated with blurry vision, difficulty with night vision, visible rings around lights, and occasional spots. The patient reports that the visual changes are similarly constant, provoked by light. She reports that light makes the headaches slightly worse, but that resting in a dark room does not make them better, and she denies a positional component. She has a history of evaluation for migraines shortly before her , but says that these headaches are different and that she never had visual changes with her migraines. She denies nausea with the headaches, denies focal neurologic changes or weakness, and denies any obstetric complaints including decreased movement, vaginal bleeding, loss of fluid, or contractions. She reports mild increased hand swelling but no lower extremity or facial swelling, no RUQ pain or other abdominal pain, and no chest pain, palpitations, or trouble breathing. The patient has a history complicated by transfer of care between providers in her 32nd week, but reports a previously otherwise uncomplicated . The patient has a complex medical history, including an active gastric ulcer, interstitial cystitis, endometriosis, and a history of HTN in her teens per records, not corroborated by the patient. She denies any family history of induced hypertension. History of Present care: good care Dating criteria: LMP confirmed by 1st trimester US Ultrasounds: normal 1st trimester US and normal mid trimester US Obstetrical complications: other (proteinuria) Medical complications: gastrointestinal Preadmission Labs Blood type: O (+) positive -: Antibody screen: negative, HBsAG: negative, HIV: negative and RPR/VDLR: negative -: Chlamydia screen: not detected and Gonorrhea screen: not detected -: Rubella: immune PAP: Normal Quad screen: Normal 1 hr GTT: 99 Evaluation Evaluation Baseline heart rate: 130 Variability: Average (6-10) monitor accelerations: Present monitor decelerations: Absent Category of Tracing: I Laboratory results: Laboratory Tests 11/17/19 11/17/19 11/17/19 10:05 10:05 10:52 WBC 9.4 RBC 3.36 L Hgb 10.2 L Hct 29.2 L MCV 87.1 MCH 30.3 MCHC 34.8 RDW 12.8 Plt Count 285 Neut % (Auto) 77.5 H Lymph % (Auto) 17.2 L [place] % (Auto) 4.5 Eos % (Auto) 0.2 L Baso % (Auto) 0.6 Neut # (Auto) 7300 H Lymph # (Auto) 1600 [place] # (Auto) 400 Eos # (Auto) 0 Baso # (Auto) 100 BUN 5 L Creatinine 0.50 L Estimated GFR > 60.0 BUN/Creatinine Ratio 10.0 Uric Acid 4.0 AST 23 Urine Color Yellow Urine Appearance Clear Urine pH 7.5 Ur Specific [place] <=1.005 Urine Protein Negative Urine Glucose (UA) Negative Urine Ketones Negative Urine Occult Blood Negative Urine Nitrate Negative Urine Bilirubin Negative Urine Urobilinogen 0.2 Ur Leukocyte Esterase Negative Urine RBC 0-1/hpf Urine WBC 0-1/hpf Ur Squamous Epith Cells 0-1 /hpf Urine Bacteria Occasional (0-1) Ur Culture Indicated? Cult not indicated U Random Total Protein Urine Creatinine Protein/Creatinin Ratio 11/17/19 10:52 WBC RBC Hgb Hct MCV MCH MCHC RDW Plt Count Neut % (Auto) Lymph % (Auto) [place] % (Auto) Eos % (Auto) Baso % (Auto) Neut # (Auto) Lymph # (Auto) [place] # (Auto) Eos # (Auto) Baso # (Auto) BUN Creatinine Estimated GFR BUN/Creatinine Ratio Uric Acid AST Urine Color Urine Appearance Urine pH Ur Specific [place] Urine Protein Urine Glucose (UA) Urine Ketones Urine Occult Blood Urine Nitrate Urine Bilirubin Urine Urobilinogen Ur Leukocyte Esterase Urine RBC Urine WBC Ur Squamous Epith Cells Urine Bacteria Ur Culture Indicated? U Random Total Protein 11 Urine Creatinine 29.0 Protein/Creatinin Ratio 0.37 [facility] Medical History Dyspareunia (Chronic Unknown) Endometriosis (Chronic) Ovarian cyst (Acute) Surgical History History of third molar tooth extraction Status post laparoscopy (07/20/16) Status post laparoscopy (10/29/17) Social History Smoking Status: Never smoker second hand exposure: No alcohol intake: current substance use type: does not use Meds Home Medications and Allergies Home Medications Medication Instructions Recorded Confirmed Type vit-iron fum-folic ac 2 each PO DAILY 05/23/19 10/16/19 History pantoprazole 40 mg tablet,delayed See Rx Instructions .ROUTE 10/09/19 10/16/19 Rx release .COMPLEX #30 tablet azithromycin 250 mg tablet See Rx Instructions PO .COMPLEX #6 10/16/19 10/16/19 Rx tab budesonide 90 mcg/actuation breath 1 inhalation INHALATION BID #1 each 10/16/19 10/16/19 Rx activated powder inhaler Allergies Allergy/AdvReac Type Severity Reaction Status Date / Time grass pollen AdvReac Mild Hives Verified 10/16/19 09:15 pecans AdvReac Intermediate Hives Uncoded 09/27/19 09:09 Review of Systems Review of Systems ROS Unobtainable: All systems reviewed & are unremarkable except as noted in HPI and below Constitutional Constitutional: Reports as per HPI Eyes Eyes: Reports as per HPI ENT Ears, Nose, Mouth, and Throat: Yes as per HPI Cardiovascular Cardiovascular: Reports system reviewed; no additional complaints, except as documented Respiratory Respiratory: Reports system reviewed and no additional complaints, except as documented Gastrointestinal Gastrointestinal: Reports system reviewed and no additional complaints, except as documented Genitourinary Genitourinary: Reports system reviewed and no additional complaints, except as documented Musculoskeletal Musculoskeletal: Reports system reviewed; no additional complaints, except as documented Neurologic Neurologic: Reports as per HPI Hematologic/Lymphatic Hematologic/Lymphatic: Reports system reviewed and no additional complaints, except as documented Exam Vital Signs (past 8 hours): 116-133/68-79, HR 90s, T 36.2C, Const General: cooperative, healthy appearing and comfortable Orientation: alert, awake and oriented x3 Eyes General: appearance normal, both eyes and all related structures Resp Effort & Inspection: normal respiratory effort Auscultation: clear to auscultation bilaterally Cardio Rate: regular rate Rhythm: regular rhythm Heart Sounds: S1 normal and S2 normal GI Palpation: soft and No tender Neuro Cranial Nerves: CN's II-XI intact bilaterally Speech: speech normal Gait: normal gait Sensory Exam: no sensory deficits noted DTR's: Rt Patellar: 2+ and Lt Patellar: 2+ Extrem General: no pedal edema Right upper extremity: normal to inspection (no edema on exam) Left upper extremity: normal to inspection (no edema on exam) Objective Labs Result Diagrams: 11/18/19 11:09 11/18/19 11:09 Labs: Laboratory Results - last 24 hr 11/17/19 11/17/19 11/17/19 10:05 10:05 10:52 WBC 9.4 RBC 3.36 L Hgb 10.2 L Hct 29.2 L MCV 87.1 MCH 30.3 MCHC 34.8 RDW 12.8 Plt Count 285 Neut % (Auto) 77.5 H Lymph % (Auto) 17.2 L [place] % (Auto) 4.5 Eos % (Auto) 0.2 L Baso % (Auto) 0.6 Neut # (Auto) 7300 H Lymph # (Auto) 1600 [place] # (Auto) 400 Eos # (Auto) 0 Baso # (Auto) 100 BUN 5 L Creatinine 0.50 L Estimated GFR > 60.0 BUN/Creatinine Ratio 10.0 Uric Acid 4.0 AST 23 Urine Color Yellow Urine Appearance Clear Urine pH 7.5 Ur Specific [place] <=1.005 Urine Protein Negative Urine Glucose (UA) Negative Urine Ketones Negative Urine Occult Blood Negative Urine Nitrate Negative Urine Bilirubin Negative Urine Urobilinogen 0.2 Ur Leukocyte Esterase Negative Urine RBC 0-1/hpf Urine WBC 0-1/hpf Ur Squamous Epith Cells 0-1 /hpf Urine Bacteria Occasional (0-1) Ur Culture Indicated? Cult not indicated U Random Total Protein Urine Creatinine Protein/Creatinin Ratio 11/17/19 10:52 WBC RBC Hgb Hct MCV MCH MCHC RDW Plt Count Neut % (Auto) Lymph % (Auto) [place] % (Auto) Eos % (Auto) Baso % (Auto) Neut # (Auto) Lymph # (Auto) [place] # (Auto) Eos # (Auto) Baso # (Auto) BUN Creatinine Estimated GFR BUN/Creatinine Ratio Uric Acid AST Urine Color Urine Appearance Urine pH Ur Specific [place] Urine Protein Urine Glucose (UA) Urine Ketones Urine Occult Blood Urine Nitrate Urine Bilirubin Urine Urobilinogen Ur Leukocyte Esterase Urine RBC Urine WBC Ur Squamous Epith Cells Urine Bacteria Ur Culture Indicated? U Random Total Protein 11 Urine Creatinine 29.0 Protein/Creatinin Ratio 0.37 Assessment and Plan Assessment and Plan Assessment and Plan narrative: This patient is a 24yo @33+2, presenting for further evaluation of proteinuria found on inital evaluation for headache. The patient has continued to be normotensive, with her blood pressures consistent with her baseline of 110s-120s/70s, an unchanged though constant headache, no additional neurologic signs or symptoms, and labs stable and remarkable only for proteinuria. Her history of migraines makes her headache less clearly diagnostic for preeclampsia, especially as her symptoms are not progressing, and the rest of her clinical presentation is not definitively diagnostic enough to proceed to delivery for preeclampsia with severe features. The patient has reassuring status, with a small but symmetrically grown fetus and reassuring monitoring. She will remain in labor and delivery overnight for a 12 hour urine collection, further monitoring of vital signs and symptoms, and repeat labs in the morning. Intermittent monitoring will continue. - VS every 4 hrs while asleep, q1 hr while awake - Regular diet - Ambulation ad kailey - 1 hr NST q shift - 12 hr urine collection - repeat PEC labs in AM or PRN
[2019-11-17] MEDS: METOCLOPRAMIDE HCL 10 MG TABLET PO (16:33)
[2019-11-17] MEDS: diphenhydrAMINE 25 MG TABLET PO (16:33)
[2019-11-18 04:50] LABS: Protein (Total) Urine Random 14 mg/dL (0-12)
[2019-11-18 05:19] LABS: Collection Time Urine 24 Hours; Total Protein 24 Hour Urine 350 mg/day (42-225); Total Volume Urine 2500 mL
--- NOTE | 2019-11-18 10:49 | P.PNOB_ITS ---
Date/Time Date Patient Seen: 11/18/19 Time Patient Seen: 10:50 Status status: Category l Heart Rate Baseline: 125 Monitor Accelerations: Present Monitor Decelerations: Absent Monitor Variability: Moderate Assessment and Plan Comments: This patient is a 24yo @33+3 a/w proteinuria and LAW in the setting of a history of migraines. The patient reports that her LAW responded somewhat to reglan and benadryl overnight, but that it has worsened this AM and was accompanied by transient nausea. She continues to deny other focal neurologic symptoms, has reassuring status, and was normotensive overnight. However, her 12 hour urine protein was elevated at 350mg, and she has had increasingly frequent systolic BPs of 130s-141 this AM. Despite the history of migraines, the rest of the patient's clinical presentation is increasingly concerning for preeclampsia. The patient has been discussed with Dr. Jaramillo of [facility], and will be transferred for further diagnostic evaluation and NICU availability. - Mg sulfate, loading dose 4gm, 2gm maintenance - Initiate betamethasone 12mg IM q24 x2 - GBS to be collected
[2019-11-18 11:27] LABS: Add Manual Diff / Slide Review NO; Basophils Absolute Auto 100 /uL (0-100); Basophils Percent Auto 0.8 % (0-2); Eosinophils Absolute Auto 0 /uL (0-450); Eosinophils Percent Auto 0.4 % (2-4); Hematocrit 32.9 % (36-46); Hemoglobin 11.6 g/dL (12.0-16.0); Lymphocytes Absolute Auto 1700 /uL (1100-4500); Lymphocytes Percent Auto 18.9 % (25-40); Mean Corpuscular HGB Conc 35.4 % (30-36); Mean Corpuscular Hemoglobin 30.9 PG (26-34); Mean Corpuscular Volume 87.3 fL (80-100); Monocytes Absolute Auto 500 /uL (0-900); Neutrophils Absolute Auto 6600 /uL (1500-7000); Neutrophils Percent Auto 73.9 % (50-75); Platelet Count 313 X10^3/uL (150-400); Red Blood Cell Count 3.77 X10^6/uL (4.0-5.2); Red Cell Distribution Width 12.7 % (11.6-14.8); White Blood Cell Count 8.9 X10^3/uL (4.5-11.0)
[2019-11-18 11:39] LABS: Aspartate Aminotransferase 24 IU/L (14-36); Blood Urea Nitrogen 5 mg/dL (7-17); Estimated Glomerular Filt Rate > 60.0 mL/min (>60); Uric Acid 3.6 mg/dL (2.5-6.2)
[2019-11-18] MEDS: LACTATED RINGERS 1,000 ML 100 ML IV (13:08)
[2019-11-18] MEDS: MAGNESIUM SULFATE 4 GM/100 ML PIGGYBACK IV (13:08)
[2019-11-18] MEDS: BETAMETHASONE 30 MG/5 ML MDV 12 MG IM (13:14)
[2019-11-18] MEDS: MAGNESIUM SULFATE 20 GM/500 ML IV.SOLN IV (13:54)
[2019-11-18 14:26] LABS: Strep Grp B PCR NEG for Grp B Strep
== END 2019-11-18 14:45 | disposition home or self-care (01) | DRG 833 ==
PROVIDERS: Admitting Provider Obstetrics & Gynecology; PCP Physician Assistant; Visit Provider Obstetrics & Gynecology
DX: O12.13 Gestational proteinuria, third trimester (principal); R51 Headache; Z3A.33 33 weeks gestation of pregnancy; Z87.898 Personal history of other specified conditions; R11.0 Nausea
CPT/HCPCS: 36415; 76815; 76819; 81001; 82570; 84156; 84450; 84550; 85025; 86850; 86900; 86901; 87081; 87653; G0378; G0379; J0702; J3475

== ENCOUNTER 2019-11-24 15:04 | Outpatient (CLI) | payer OTHER, SELFPAY ==
--- NOTE | 2019-11-24 15:41 | DI.US.S_ITS ---
PROCEDURE: US OB BIOPHYSICAL PROFILE INDICATIONS: PROVIDER ORDER OUTSIDE/PRIOR DATING DATA: Last menstrual period (LMP): 03/28/2019. LMP-based estimated date of delivery (CONNOR): 01/02/2020. First dating scan (date and location): 06/14/[address] Butcher's office. Estimated date of delivery (CONNOR) from first dating scan: 01/07/2020. TECHNIQUE: Real-time scanning was performed of the fetus, with image documentation and biometric measurements. Biophysical profile was also obtained. Endovaginal scanning: None COMPARISON: [facility], OB >= 14 WEEKS FETUS, 08/18/2019, 9:33. [facility] OB >= 14 WEEKS FETUS, 08/02/2019, 12:07. [facility] OB LIMITED, 11/17/2019, 10:10. FINDINGS: General: A single living intrauterine gestation is present. Presentation: Vertex. Placenta: Placental position is right fundal, without previa. Amniotic fluid index: 14.4 cm, normal range is 5-24 cm. heart rate: 136 beats per minute. Maternal cervical canal: Not well-seen biometrics: Estimated gestational age from initial scan: 33 weeks 5 days. Measurement variability for biometric dating: +/- 7 days from 14 weeks to 15 weeks 6 days gestation, +/- 10 days from 16 weeks to 21 weeks 6 days gestation, +/- 2 weeks from 22 weeks to 27 weeks 6 days gestation, +/- 3 weeks for 28 weeks gestation or later. weight reference: 4500 g or EFW >90/95% is considered macrosomia or large for gestational age. EFW <10% is small for gestational age. EFW 5% or less is considered intra-uterine growth restriction. Biophysical profile: Tone: 2 points. Movement: 2 points. Respiration: 2 points. Largest pocket of fluid: 2 points. IMPRESSION: 1. A single living intrauterine gestation with an estimated gestational age of 33 weeks 5 days based on the initial ultrasound. 2. Normal biophysical profile (06/29). Dictated by: Ed Marte M.D. on 11/24/2019 at 17:19 Approved by: Ed Marte M.D. on 11/24/2019 at 17:22
--- NOTE | 2019-11-24 17:58 | P.TNLD_ITS ---
Visit Information Visit Information Date of evaluation: 11/24/19 Primary OB Provider: Paula Mccarty Reason for Evaluation: Yes non-stress test Comments/Additional reasons for admission: This patient is a 24-year-old at 34+ 1, presenting for scheduled testing in the setting of a diagnosis of gestational hypertension after evaluation at the [facility]. The patient has ongoing chronic headache and proteinuria, with occasional elevated blood pressures for which she was discharged on propranolol. The patient reports that her clinical status is unchanged and the office today, and was sent to Labor and delivery for testing. She reports good movement and denies any other obstetrical complaints, and denies any changes in her clinical status. Vital Signs Vital Signs: 112/70, heart rate 81 PFSH Medical History Dyspareunia (Chronic Unknown) Endometriosis (Chronic) Ovarian cyst (Acute) Surgical History History of third molar tooth extraction Status post laparoscopy (07/20/16) Status post laparoscopy (10/29/17) Social History Smoking Status: Never smoker second hand exposure: No alcohol intake: current substance use type: does not use Review of Systems Constitutional Constitutional: Reports system reviewed and no additional complaints, except as documented Cardiovascular Cardiovascular: Reports system reviewed; no additional complaints, except as documented Respiratory Respiratory: Reports system reviewed and no additional complaints, except as documented Gastrointestinal Gastrointestinal: Reports system reviewed and no additional complaints, except as documented Genitourinary Genitourinary: Reports system reviewed and no additional complaints, except as documented Neurologic Neurologic: Reports as per HPI Comments: See clinic note Evaluation Evaluation Baseline heart rate: 120 Variability: Average (6-10) monitor accelerations: Present monitor decelerations: Absent Contraction Frequency (minutes): 20 Category of Tracing: I Comments: BPP 8/8, JENNY 14.4 Diagnosis, Plan/Disposition Plan/Disposition Plan: This patient has reassuring status, and will be discharged for follow-up next week. Antepartum and preeclampsia precautions were discussed at length with the patient, and she was directed to present for any change in her or status. OB Disposition: home
== END 2019-11-24 16:52 | disposition home or self-care (01) ==
LOC: LABOR 15:18 → OB 11-27 15:48
PROVIDERS: PCP Physician Assistant; Visit Provider Obstetrics & Gynecology
DX: O13.3 Gestational [pregnancy-induced] hypertension without significant proteinuria, third trimester (principal); Z3A.36 36 weeks gestation of pregnancy
CPT/HCPCS: 59025; 76819; G0378; G0379

== ENCOUNTER → 2019-11-28 11:48 | Outpatient (CLI) | payer OTHER, SELFPAY | PROVIDERS: PCP Physician Assistant; Visit Provider Obstetrics & Gynecology | DX: N39.0 Urinary tract infection, site not specified (principal) | CPT/HCPCS: 87086 ==

== ENCOUNTER 2019-11-28 11:51 | Outpatient (CLI) | payer OTHER, SELFPAY ==
--- NOTE | 2019-11-28 13:48 | PM.OBTRLD ---
Visit Information Visit Information Date of evaluation: 11/28/19 Primary OB Provider: Paula Mccarty Reason for Evaluation: Yes non-stress test Comments/Additional reasons for admission: This patient is a 24yo @34+5 here for a scheduled NST for gHTN. The patient reports no acute changes in status, with no obstetrical complaints. She does report symptoms of suprapubic pain, urinary frequency, and dysuria x2 days, but no flank pain or fevers/chills. PFSH Medical History Dyspareunia (Chronic Unknown) Endometriosis (Chronic) Ovarian cyst (Acute) Surgical History History of third molar tooth extraction Status post laparoscopy (07/20/16) Status post laparoscopy (10/29/17) Social History Smoking Status: Never smoker second hand exposure: No alcohol intake: current substance use type: does not use Review of Systems Constitutional Constitutional: Reports system reviewed and no additional complaints, except as documented Exam Vital Signs (past 8 hours): 115/68, HR 75 Evaluation Evaluation Baseline heart rate: 120 Variability: Average (6-10) monitor accelerations: Present monitor decelerations: Absent Category of Tracing: I Comments: Rare asymptomatic contractions Diagnosis, Plan/Disposition Plan/Disposition Plan: For repeat NST/BPP on Wednesday, 12/01. Antepartum precautions discussed. UC pending, for empiric tx with keflex. Scheduled for induction at 37 weeks. OB Disposition: home
== END 2019-11-28 13:42 | disposition home or self-care (01) ==
LOC: LABOR 12:37 → OB 15:20
PROVIDERS: PCP Physician Assistant; Visit Provider Obstetrics & Gynecology
DX: O13.3 Gestational [pregnancy-induced] hypertension without significant proteinuria, third trimester (principal); O23.43 Unspecified infection of urinary tract in pregnancy, third trimester; R10.30 Lower abdominal pain, unspecified; Z3A.34 34 weeks gestation of pregnancy; N39.0 Urinary tract infection, site not specified
CPT/HCPCS: 59025; 87086; G0378; G0379

== ENCOUNTER 2019-12-01 11:01 | Outpatient (CLI) | payer OTHER, SELFPAY ==
--- NOTE | 2019-12-01 11:58 | P.TNLD_ITS ---
Visit Information Visit Information Date of evaluation: 12/01/19 Primary OB Provider: Paula Mccarty On-call OB Provider: Aixa Muñoz Reason for Evaluation: Yes non-stress test non-stress test reason: hyp ertension/pre-eclampsia Vital Signs Vital Signs: Blood pressure 112/83, pulse of 85, temperature 97.5? [facility] Social History Smoking Status: Never smoker second hand exposure: No alcohol intake: current substance use type: does not use Evaluation Evaluation Baseline heart rate: 125 Variability: Moderate (11-25) monitor accelerations: Present monitor decelerations: Absent Contraction Frequency (minutes): 0 Diagnosis, Plan/Disposition Final Diagnosis (1) Hypertension affecting in third trimester: Current Visit: No Status: Acute (2) 35 weeks gestation of : Current Visit: No Status: Acute Plan/Disposition Plan: Patient being followed with twice weekly NSTs for hypertension in 3rd trimester possible early preeclampsia. No evidence of preeclampsia symptoms worsening. Reactive nonstress test. Patient declines biophysical profile OB Disposition: home
== END 2019-12-01 11:55 | disposition home or self-care (01) ==
LOC: LABOR 11:54 → OB 12-04 14:38
PROVIDERS: PCP Physician Assistant; Visit Provider Obstetrics & Gynecology
DX: O13.3 Gestational [pregnancy-induced] hypertension without significant proteinuria, third trimester (principal); Z3A.35 35 weeks gestation of pregnancy
CPT/HCPCS: 59025; G0378; G0379

== ENCOUNTER 2019-12-05 08:53 | Observation (INO) | payer OTHER, SELFPAY ==
[2019-12-05 09:37] LABS: Add Manual Diff / Slide Review NO; Basophils Absolute Auto 0 /uL (0-100); Basophils Percent Auto 0.3 % (0-2); Eosinophils Absolute Auto 0 /uL (0-450); Eosinophils Percent Auto 0.1 % (2-4); Hematocrit 32.8 % (36-46); Hemoglobin 10.8 g/dL (12.0-16.0); Lymphocytes Absolute Auto 1000 /uL (1100-4500); Lymphocytes Percent Auto 6.9 % (25-40); Mean Corpuscular Hemoglobin 28.8 PG (26-34); Mean Corpuscular Volume 87.3 fL (80-100); Monocytes Absolute Auto 800 /uL (0-900); Monocytes Percent Auto 5.8 % (3-14); Neutrophils Absolute Auto 12100 /uL (1500-7000); Neutrophils Percent Auto 86.9 % (50-75); Platelet Count 283 X10^3/uL (150-400); Red Blood Cell Count 3.75 X10^6/uL (4.0-5.2); Red Cell Distribution Width 12.8 % (11.6-14.8)
[2019-12-05 09:47] LABS: Aspartate Aminotransferase 25 IU/L (14-36); BUN Creatinine Ratio 11.7 (6-22); Blood Urea Nitrogen 7 mg/dL (7-17); Estimated Glomerular Filt Rate > 60.0 mL/min (>60); Uric Acid 5.1 mg/dL (2.5-6.2)
--- NOTE | 2019-12-05 09:54 | DI.US.S_ITS ---
PROCEDURE: US OB BIOPHYSICAL PROFILE INDICATIONS: BPP TECHNIQUE: Real-time scanning was performed of the fetus, with image documentation and biometric measurements. Biophysical profile was also obtained. COMPARISON: [facility], , US OB >= 14 WEEKS FETUS, 11/28/2019, 11:36. [facility], OB BIOPHYSICAL PROFILE, 11/24/2019, 16:34. [facility], , XR CHEST 2V, 01/30/2019, 19:19. FINDINGS: General: A single living intrauterine gestation is present. Presentation: Cephalic Placenta: Placental position is posterior-fundal Amniotic fluid index: 14.6 heart rate: 147 beats per minute. Maternal cervical canal: Not adequately seen Biophysical profile: Tone: 2/2 points. Movement: 2/2 points. Respiration: 2/2 points. Largest pocket of fluid: 2/2 points. IMPRESSION: Normal biophysical profile. Dictated by: Tj Álvarez M.D. on 12/05/2019 at 9:37 Approved by: Tj Álvarez M.D. on 12/05/2019 at 9:38
--- NOTE | 2019-12-05 09:56 | P.TNLD_ITS ---
Visit Information Visit Information Date of evaluation: 12/05/19 Primary OB Provider: Paula Mccarty Reason for Evaluation: Yes non-stress test Comments/Additional reasons for admission: This patient is a 24-year-old at 35+ 5 presenting for her scheduled NST. The patient has had multiple family members with viral URI symptoms, and reports that last night, she began having a sore throat, stuffy nose, cough, and associated nausea and vomiting. She reports epigastric cramping associated with the nausea and vomiting, but denies diarrhea or UTI symptoms. She says that she has not kept anything down over night or this morning. The patient denies fevers, chills, myalgias, increased headaches, increased visual changes, right upper quadrant or chest pain, shortness of breath, contractions, vaginal bleeding, loss of fluid, or decreased movement. She further denies any of the above symptoms prior to last night. The patient continues her Reglan and propranolol as previously described. Vital Signs Vital Signs: 117/76, 98.6 F, heart rate 107. PFSH Medical History Dyspareunia (Chronic Unknown) Endometriosis (Chronic) Ovarian cyst (Acute) Surgical History History of third molar tooth extraction Status post laparoscopy (07/20/16) Status post laparoscopy (10/29/17) Social History Smoking Status: Never smoker second hand exposure: No alcohol intake: current substance use type: does not use Review of Systems Constitutional Constitutional: Reports as per HPI Cardiovascular Cardiovascular: Reports as per HPI Respiratory Respiratory: Reports as per HPI Genitourinary Genitourinary: Reports as per HPI Exam Narrative Exam Narrative: Patient sitting up in bed, audibly stuffy but otherwise only mildly ill-appearing. Ambulating easily without issue. Const General: cooperative, comfortable, well groomed and No acute distress Resp Effort & Inspection: normal respiratory effort Auscultation: clear to auscultation bilaterally Cardio Rate: regular rate Rhythm: regular rhythm GI Palpation: soft and No tender External Female Exam: external appearance normal Other: Cervix closed, long, posterior. Patient requested as reports cramping last night. Skin General: no rashes or lesions noted Extrem Right lower extremity: no edema Left lower extremity: no edema Objective Labs Result Diagrams: 12/05/19 09:25 12/05/19 09:25 Labs: Laboratory Results - last 24 hr 12/05/19 12/05/19 09:25 09:25 WBC 14.0 H RBC 3.75 L Hgb 10.8 L Hct 32.8 L MCV 87.3 MCH 28.8 MCHC 33.0 RDW 12.8 Plt Count 283 Neut % (Auto) 86.9 H Lymph % (Auto) 6.9 L [place] % (Auto) 5.8 Eos % (Auto) 0.1 L Baso % (Auto) 0.3 Neut # (Auto) 05072 H Lymph # (Auto) 1000 L [place] # (Auto) 800 Eos # (Auto) 0 Baso # (Auto) 0 BUN 7 Creatinine 0.60 Estimated GFR > 60.0 BUN/Creatinine Ratio 11.7 Uric Acid 5.1 AST 25 Evaluation Evaluation Baseline heart rate: 120 Variability: Average (6-10) monitor accelerations: Present monitor decelerations: Absent (Of note, mom slightly elevated heart rate, trace is maternal heart rate when patient sits up in bed.) Contraction Frequency (minutes): 4 Category of Tracing: I Laboratory results: Laboratory Tests 12/05/19 12/05/19 09:25 09:25 WBC 14.0 H RBC 3.75 L Hgb 10.8 L Hct 32.8 L MCV 87.3 MCH 28.8 MCHC 33.0 RDW 12.8 Plt Count 283 Neut % (Auto) 86.9 H Lymph % (Auto) 6.9 L [place] % (Auto) 5.8 Eos % (Auto) 0.1 L Baso % (Auto) 0.3 Neut # (Auto) 86605 H Lymph # (Auto) 1000 L [place] # (Auto) 800 Eos # (Auto) 0 Baso # (Auto) 0 BUN 7 Creatinine 0.60 Estimated GFR > 60.0 BUN/Creatinine Ratio 11.7 Uric Acid 5.1 AST 25 Diagnosis, Plan/Disposition Plan/Disposition Plan: Patient has reassuring testing, discharged home. Discussed symptomatic URI treatment. OB Disposition: home
[2019-12-05] MEDS: ONDANSETRON 4 MG/2 ML INJ IV (10:20)
== END 2019-12-05 11:30 | disposition home or self-care (01) ==
PROVIDERS: Admitting Provider Obstetrics & Gynecology; PCP Physician Assistant; Visit Provider Obstetrics & Gynecology
DX: O13.3 Gestational [pregnancy-induced] hypertension without significant proteinuria, third trimester (principal); R11.2 Nausea with vomiting, unspecified; Z3A.35 35 weeks gestation of pregnancy
CPT/HCPCS: 36415; 59025; 59050; 76819; 84450; 84550; 85025; 96360; G0378; G0379; J2405

== ENCOUNTER → 2019-12-07 11:49 | Outpatient (CLI) | payer OTHER, SELFPAY ==
[2019-12-07 12:36] LABS: Influenza A - CEPHEID Flu A NEGATIVE (NEGATIVE); Influenza B - CEPHEID Flu B NEGATIVE (NEGATIVE)
== END ==
PROVIDERS: PCP Physician Assistant; Visit Provider Physician Assistant
DX: R68.89 Other general symptoms and signs (principal)
CPT/HCPCS: 87502

== ENCOUNTER 2019-12-08 10:16 | Outpatient (CLI) | payer OTHER, SELFPAY ==
--- NOTE | 2019-12-08 | DI.US.S_ITS ---
PROCEDURE: US OB BIOPHYSICAL PROFILE INDICATIONS: POSSIBLE PRE-ECLAMPSIA OUTSIDE/PRIOR DATING DATA: Last menstrual period (LMP): 03/28/19. LMP-based estimated date of delivery (CONNOR): 01/02/20. First dating scan (date and location): 06/14/19. Estimated date of delivery (CONNOR) from first dating scan: 01/07/20. TECHNIQUE: Real-time scanning was performed of the fetus for biophysical profile, with image documentation. COMPARISON: [facility], OB >= 14 WEEKS FETUS, 11/28/2019, 11:36. [facility], OB BIOPHYSICAL PROFILE, 11/24/2019, 16:34. [facility], OB LIMITED, 11/17/2019, 10:10. [facility], , US PELVIC COMPLETE, 11/01/2019, 8:55. [facility], OB >= 14 WEEKS FETUS, 08/18/2019, 9:33. [facility], OB >= 14 WEEKS FETUS, 08/02/2019, 12:07. FINDINGS: General: A single living intrauterine gestation is present. Presentation: Cephalic Placenta: Placental position is fundal Amniotic fluid index: 6.9 cm heart rate: 137 beats per minute. Maternal cervical canal: Not adequately seen Estimated gestational age from initial scan: 36 weeks 1 day. Biophysical profile: Tone: 2/2 points. Movement: 2/2 points. Respiration: 2/2 points. Largest pocket of fluid: 2/2 points. Umbilical artery Doppler: Not performed IMPRESSION: Normal biophysical profile. Dictated by: Tj Álvarez M.D. on 12/08/2019 at 11:32 Approved by: Tj Álvarez M.D. on 12/08/2019 at 11:34
--- NOTE | 2019-12-08 11:30 | P.TNLD_ITS ---
Visit Information Visit Information Date of evaluation: 12/08/19 Primary OB Provider: Paula Mccarty Reason for Evaluation: Yes non-stress test Comments/Additional reasons for admission: This patient is a 24-year-old at 36 and 1 with a diagnosis of gestational hypertension and atypical migraine, presenting for routine testing. The patient has increasingly severe upper respiratory tract infection symptoms today with pressure behind the eyes, zygomatic arch and jaw pain, and profuse green thick nasal discharge. The patient reports that her headaches are largely related to this apparent sinus infection, and that her other neurologic symptoms have not changed. She notes no increased swelling, and has no obstetrical complaints. Vital Signs Vital Signs: 116/81, HR 101, T 36.3C [facility] Medical History Dyspareunia (Chronic Unknown) Endometriosis (Chronic) Ovarian cyst (Acute) Surgical History History of third molar tooth extraction Status post laparoscopy (07/20/16) Status post laparoscopy (10/29/17) Social History Smoking Status: Never smoker second hand exposure: No alcohol intake: current substance use type: does not use Review of Systems Constitutional Constitutional: Reports as per HPI Cardiovascular Cardiovascular: Reports as per HPI Respiratory Respiratory: Reports as per HPI Gastrointestinal Gastrointestinal: Reports as per HPI Exam Narrative Exam Narrative: Patient resting in bed, smiling but audibly quite congested. GI Palpation: soft and No tender Extrem General: normal to inspection Right lower extremity: no edema Left lower extremity: no edema Evaluation Evaluation Baseline heart rate: 135 Variability: Average (6-10) monitor accelerations: Present monitor decelerations: Absent Category of Tracing: I Comments: 06/29 BPP per verbal report Diagnosis, Plan/Disposition Plan/Disposition Plan: Continue routine testing. Patient prescribed 875mg BID amoxicillin x7 days for bacterial sinusitis. OB Disposition: home
== END 2019-12-08 11:40 | disposition home or self-care (01) ==
LOC: LABOR 11:00 → OB 12-11 15:15
PROVIDERS: PCP Physician Assistant; Visit Provider Obstetrics & Gynecology
DX: O13.3 Gestational [pregnancy-induced] hypertension without significant proteinuria, third trimester (principal); J06.9 Acute upper respiratory infection, unspecified; Z3A.36 36 weeks gestation of pregnancy
CPT/HCPCS: 59025; 76819; G0378; G0379

== ENCOUNTER 2019-12-11 16:12 | Outpatient (CLI) | payer OTHER, SELFPAY ==
[2019-12-11 17:15] LABS: Add Manual Diff / Slide Review NO; Basophils Absolute Auto 100 /uL (0-100); Basophils Percent Auto 0.6 % (0-2); Eosinophils Absolute Auto 100 /uL (0-450); Eosinophils Percent Auto 0.7 % (2-4); Hematocrit 31.2 % (36-46); Hemoglobin 10.6 g/dL (12.0-16.0); Lymphocytes Absolute Auto 1600 /uL (1100-4500); Mean Corpuscular HGB Conc 34.1 % (30-36); Mean Corpuscular Hemoglobin 29.6 PG (26-34); Monocytes Absolute Auto 500 /uL (0-900); Monocytes Percent Auto 6.2 % (3-14); Neutrophils Absolute Auto 6500 /uL (1500-7000); Neutrophils Percent Auto 74.5 % (50-75); Platelet Count 306 X10^3/uL (150-400); Red Blood Cell Count 3.59 X10^6/uL (4.0-5.2); Red Cell Distribution Width 12.9 % (11.6-14.8); White Blood Cell Count 8.7 X10^3/uL (4.5-11.0)
[2019-12-11 17:27] LABS: Aspartate Aminotransferase 23 IU/L (14-36); Blood Urea Nitrogen 6 mg/dL (7-17); Estimated Glomerular Filt Rate > 60.0 mL/min (>60); Uric Acid 4.1 mg/dL (2.5-6.2)
--- NOTE | 2019-12-11 17:46 | PM.OBTRLD ---
Visit Information Visit Information Date of evaluation: 12/11/19 Primary OB Provider: Paula Mccarty Reason for Evaluation: Yes non-stress test Comments/Additional reasons for admission: This patient is a 24yo @ 36+4 with gestational hypertension presenting for evaluation of left and right rib pain and a transient worsening headache in the setting of a sinus infection. She reports that her pain is worse with coughing and movement, and sometimes with movement. Her current headache is improved with sinus care such as inhaling humid air, and is across the maxillary sinuses and behind the eyes. She denies changes in her visual symptoms. She denies other respiratory complaints. [facility] Medical History Dyspareunia (Chronic Unknown) Endometriosis (Chronic) Ovarian cyst (Acute) Surgical History History of third molar tooth extraction Status post laparoscopy (07/20/16) Status post laparoscopy (10/29/17) Social History Smoking Status: Never smoker second hand exposure: No alcohol intake: current substance use type: does not use Review of Systems Constitutional Constitutional: Reports as per HPI Cardiovascular Cardiovascular: Reports system reviewed; no additional complaints, except as documented Respiratory Respiratory: Reports system reviewed and no additional complaints, except as documented Gastrointestinal Gastrointestinal: Reports as per HPI Genitourinary Genitourinary: Reports system reviewed and no additional complaints, except as documented Exam Vital Signs (past 8 hours): 129/81, HR 98 Const General: cooperative, healthy appearing and comfortable Other: Patient resting in bed Resp Effort & Inspection: normal respiratory effort Auscultation: clear to auscultation bilaterally Cardio Rate: regular rate Rhythm: regular rhythm GI Palpation: soft and tender (Over right and left lower ribs) Skin General: no rashes or lesions noted Objective Labs Result Diagrams: 12/11/19 17:05 12/11/19 17:05 Labs: Laboratory Results - last 24 hr 12/11/19 12/11/19 17:05 17:05 WBC 8.7 RBC 3.59 L Hgb 10.6 L Hct 31.2 L MCV 87.0 MCH 29.6 MCHC 34.1 RDW 12.9 Plt Count 306 Neut % (Auto) 74.5 Lymph % (Auto) 18.[address] [place] % (Auto) 6.2 Eos % (Auto) 0.7 L Baso % (Auto) 0.6 Neut # (Auto) 6500 Lymph # (Auto) [address] [place] # (Auto) 500 Eos # (Auto) 100 Baso # (Auto) 100 BUN 6 L Creatinine 0.50 L Estimated GFR > 60.0 BUN/Creatinine Ratio 12.0 Uric Acid 4.1 AST 23 Evaluation Evaluation Baseline heart rate: 140 Variability: Average (6-10) monitor accelerations: Present monitor decelerations: Absent Category of Tracing: I Laboratory results: Laboratory Tests 12/11/19 12/11/19 17:05 17:05 WBC 8.7 RBC 3.59 L Hgb 10.6 L Hct 31.2 L MCV 87.0 MCH 29.6 MCHC 34.1 RDW 12.9 Plt Count 306 Neut % (Auto) 74.5 Lymph % (Auto) 18.[address] [place] % (Auto) 6.2 Eos % (Auto) 0.7 L Baso % (Auto) 0.6 Neut # (Auto) 6500 Lymph # (Auto) [address] [place] # (Auto) 500 Eos # (Auto) 100 Baso # (Auto) 100 BUN 6 L Creatinine 0.50 L Estimated GFR > 60.0 BUN/Creatinine Ratio 12.0 Uric Acid 4.1 AST 23 Diagnosis, Plan/Disposition Plan/Disposition Plan: This patient presents with symptoms related to her URI, with no obstetrical complaints, normal vitals, and stable preeclampsia labs. We discussed preeclampsia precautions, and the patient will be discharged home for close monitoring with a scheduled induction later this week. Precautions were discussed and the patient vocalized understanding. OB Disposition: home
== END 2019-12-11 17:49 | disposition home or self-care (01) ==
LOC: OB 12-13 08:48
PROVIDERS: PCP Physician Assistant; Visit Provider Obstetrics & Gynecology
DX: O99.513 Diseases of the respiratory system complicating pregnancy, third trimester (principal); O13.3 Gestational [pregnancy-induced] hypertension without significant proteinuria, third trimester; Z3A.36 36 weeks gestation of pregnancy; J06.9 Acute upper respiratory infection, unspecified
CPT/HCPCS: 36415; 59025; 59050; 84450; 84550; 85025; G0378; G0379

== ENCOUNTER 2019-12-14 18:56 | Inpatient (IN) | payer OTHER, SELFPAY ==
[2019-12-14 19:31] VITALS: BP 131/73
[2019-12-14] MEDS: miSOPROStoL 25 MCG TABLET VAG (19:50)
[2019-12-14 19:51] LABS: Add Manual Diff / Slide Review NO; Basophils Absolute Auto 100 /uL (0-100); Basophils Percent Auto 0.6 % (0-2); Eosinophils Absolute Auto 0 /uL (0-450); Eosinophils Percent Auto 0.4 % (2-4); Hematocrit 30.4 % (36-46); Hemoglobin 10.4 g/dL (12.0-16.0); Lymphocytes Absolute Auto 2000 /uL (1100-4500); Lymphocytes Percent Auto 21.2 % (25-40); Mean Corpuscular HGB Conc 34.3 % (30-36); Mean Corpuscular Hemoglobin 29.4 PG (26-34); Mean Corpuscular Volume 85.7 fL (80-100); Monocytes Absolute Auto 400 /uL (0-900); Monocytes Percent Auto 4.3 % (3-14); Neutrophils Absolute Auto 6800 /uL (1500-7000); Neutrophils Percent Auto 73.5 % (50-75); Platelet Count 341 X10^3/uL (150-400); Red Blood Cell Count 3.54 X10^6/uL (4.0-5.2); Red Cell Distribution Width 12.7 % (11.6-14.8); White Blood Cell Count 9.3 X10^3/uL (4.5-11.0)
[2019-12-14 20:07] LABS: Aspartate Aminotransferase 37 IU/L (14-36); BUN Creatinine Ratio 18.3 (6-22); Blood Urea Nitrogen 11 mg/dL (7-17); Estimated Glomerular Filt Rate > 60.0 mL/min (>60); Uric Acid 5.5 mg/dL (2.5-6.2)
[2019-12-14] MEDS: PROPRANOLOL 10 MG TABLET 20 MG PO (20:49)
[2019-12-14] MEDS: METOCLOPRAMIDE 10 MG/2 ML INJ IV (22:34)
[2019-12-15] MEDS: miSOPROStoL 25 MCG TABLET VAG (05:30)
--- NOTE | 2019-12-15 08:29 | PM.OBHP.1 ---
OB HPI Date/Time Date of admission: 12/14/19 Date Patient Seen: 12/15/19 Time Patient Seen: 08:30 History of Present Condition Chief complaint: maternity : 1 Para: 0 Estimated Date of Delivery: 01/04/20 Estimated Gestational Age (weeks): 37 Narrative: Yumiko Madrigal is a 24 year old @37+1 complicated by gestational hypertension and atypical migraines, presenting for induction of labor. The patient reports that her headaches and visual changes? status quo?, that she has no other complaints, that she has no obstetrical complaints, and that her URI and sinus infection symptoms have significantly improved. The patient had persistent headaches and visual changes in the 3rd trimester that prompted to transfer to the [facility] for evaluation for preeclampsia. After this evaluation 3 weeks ago, she was found to have intermittent proteinuria, but was diagnosed with gestational hypertension and atypical migraines, placed on Reglan as needed and 20 mg of propranolol b.i.d., and discharged with plans for biweekly testing. EFW at that time was 1849g, 17% and symmetrically grown. Since that time, her testing has been reassuring, she has been measuring appropriately, and her symptoms have been stable with only an interval URI. Her history is otherwise significant for endometriosis and interstitial cystitis, along a complex but largely noncontributory medical history. She has an active gastric ulcer that will require endoscopy after delivery. Indications Indication for induction OB: medical complication (gestational hypertension with atypical migraine) History of Present care: good care Dating criteria: LMP confirmed by 1st trimester US Ultrasounds: normal 1st trimester US and normal mid trimester US Obstetrical complications: gestational hypertension Preadmission Labs Blood type: O (+) positive -: Antibody screen: negative, GBS status: negative, HBsAG: negative, HIV: negative and RPR/VDLR: negative -: Chlamydia screen: not detected and Gonorrhea screen: not detected -: Rubella: immune and Varicella: immune PAP: Normal Quad screen: Normal Urine: mixed nicolas 1 hr GTT: 99 Evaluation Evaluation Baseline heart rate: 125 Variability: Average (6-10) monitor accelerations: Present monitor decelerations: Absent Contraction Frequency (minutes): 5 Uterine Contraction Intensity: Mild Category of Tracing: I Cervical dilation (cm): 2 Cervical effacement (%): 70 station: 0 Laboratory results: Laboratory Tests 12/14/19 12/14/19 12/14/19 19:30 19:30 19:30 WBC 9.3 RBC 3.54 L Hgb 10.4 L Hct 30.4 L MCV 85.7 MCH 29.4 MCHC 34.3 RDW 12.7 Plt Count 341 Neut % (Auto) 73.5 Lymph % (Auto) 21.2 L [place] % (Auto) 4.3 Eos % (Auto) 0.4 L Baso % (Auto) 0.6 Neut # (Auto) 6800 Lymph # (Auto) 2000 [place] # (Auto) 400 Eos # (Auto) 0 Baso # (Auto) 100 BUN 11 Creatinine 0.60 Estimated GFR > 60.0 BUN/Creatinine Ratio 18.3 Uric Acid 5.5 AST 37 H Blood Type O Positive Antibody Screen Negative [facility] Medical History Dyspareunia (Chronic Unknown) Endometriosis (Chronic) Ovarian cyst (Acute) Surgical History History of third molar tooth extraction Status post laparoscopy (07/20/16) Status post laparoscopy (10/29/17) Social History Smoking Status: Never smoker second hand exposure: No alcohol intake: current substance use type: does not use Meds Home Medications and Allergies Home Medications Medication Instructions Recorded Confirmed Type vit-iron fum-folic ac 2 each PO DAILY 05/23/19 12/14/19 History pantoprazole 40 mg tablet,delayed See Rx Instructions .ROUTE 10/09/19 12/14/19 Rx release .COMPLEX #30 tablet budesonide 90 mcg/actuation breath 1 inhalation INHALATION BID #1 each 10/16/19 12/14/19 Rx activated powder inhaler amoxicillin 875 mg PO BID #14 tab 12/08/19 12/14/19 Rx propranolol 20 mg PO BID 12/14/19 12/14/19 History Allergies Allergy/AdvReac Type Severity Reaction Status Date / Time grass pollen AdvReac Mild Hives Verified 12/07/19 12:25 pecans AdvReac Intermediate Hives Uncoded 09/27/19 09:09 Review of Systems Constitutional Constitutional: Reports system reviewed and no additional complaints, except as documented Eyes Eyes: Reports as per HPI Cardiovascular Cardiovascular: Reports system reviewed; no additional complaints, except as documented Respiratory Respiratory: Reports system reviewed and no additional complaints, except as documented Gastrointestinal Gastrointestinal: Reports system reviewed and no additional complaints, except as documented Genitourinary Genitourinary: Reports as per HPI Neurologic Neurologic: Reports as per HPI Exam Vital Signs (past 8 hours): 117/72, HR 71 Const General: cooperative, healthy appearing, comfortable and well groomed Other: Ambulating around room, smiling and laughing. Resp Effort & Inspection: normal respiratory effort Auscultation: clear to auscultation bilaterally Cardio Rate: regular rate Rhythm: regular rhythm GI Palpation: soft and No tender External Female Exam: external appearance normal Objective Labs Result Diagrams: 12/14/19 19:30 12/14/19 19:30 Labs: Laboratory Results - last 24 hr 12/14/19 12/14/19 12/14/19 19:30 19:30 19:30 WBC 9.3 RBC 3.54 L Hgb 10.4 L Hct 30.4 L MCV 85.7 MCH 29.4 MCHC 34.3 RDW 12.7 Plt Count 341 Neut % (Auto) 73.5 Lymph % (Auto) 21.2 L [place] % (Auto) 4.3 Eos % (Auto) 0.4 L Baso % (Auto) 0.6 Neut # (Auto) 6800 Lymph # (Auto) 2000 [place] # (Auto) 400 Eos # (Auto) 0 Baso # (Auto) 100 BUN 11 Creatinine 0.60 Estimated GFR > 60.0 BUN/Creatinine Ratio 18.3 Uric Acid 5.5 AST 37 H Blood Type O Positive Antibody Screen Negative Assessment and Plan Assessment and Plan Assessment and Plan narrative: This patient presents for medically indicated induction for gestational hypertension, and is so far tolerating cervical ripening well. Patient reports that her symptoms are status quo, and status has been reassuring. The patient has received 2 doses of vaginal Cytotec, with plans to begin Pitocin induction after the appropriate interval. The plan was discussed with the patient her , along with potential complications of induction including intolerance of labor, , and assisted delivery. Patient and her vocalized understanding, and we discussed that in the setting of her medical complications, delivery is very much indicated. Preeclampsia labs were repeated not admission and were stable, with the exception of an AST 1 unit above the upper limit of normal. The patient had been planned for a growth approximately now per [facility] recommendations, but was due for induction instead and has had appropriate fundal heights. - Pitocin per protocol with continuous monitoring - at least q 1 hr VS during induction, or more frequent if per protocol - epidural upon patient request, ambulation encouraged prior to this - clear liquid diet on commencement of pitocin - GBS negative, no abx necessary
[2019-12-15] MEDS: PROPRANOLOL 10 MG TABLET 20 MG PO (08:45)
[2019-12-15] MEDS: LACTATED RINGERS 1,000 ML 100 ML IV (09:08)
[2019-12-15] MEDS: OXYTOCIN PREMIX 30 UNIT/500 ML PLAST..BAG IV (09:38)
--- NOTE | 2019-12-15 13:43 | PM.OBPNLAB ---
Date/Time Date Patient Seen: 12/15/19 Time Patient Seen: 13:43 Pain Control Pain control: tolerating well Pelvic Exam Dilation (cm): 2 Effacement (%): 80 station: 0 Amniotic membrane status: Ruptured (clear fluid) Contractions Contractions on admission: irregular Monitor mode: External Pitocin rate (mU/min): 6 Contraction frequency (min): 2 Contraction duration (min): 1 Contraction pattern: Regular Contraction phase: Resting Contraction intensity: Moderate Status status: Category l Heart Rate Baseline: 120 Monitor Accelerations: Present Monitor Decelerations: Absent Monitor Variability: Moderate Assessment and Plan Assessment: induction ongoing Plan: continuous present management
--- NOTE | 2019-12-15 17:18 | P.PCNOB_ITS ---
Events: Induced HTN Labor & Delivery Delivery date: 12/15/19 Intrapartal events: Acceleration and Deceleration Cervical ripening method: per misoprostal protocol Induction method: per pitocin protocol Delivery augmentation: rupture of membranes Delivery monitor: external FHT and external uterine Route of delivery: L&D Laceration Description: None Estimated blood loss (mL): 150 Anesthesia type: Epidural Narrative: This patient was a 24-year-old at 37 weeks presenting for induction of labor for gestational hypertension. The patient was induced with vaginal Cytotec, Pitocin, and AROM, and delivered of a healthy baby girl over an intact perineum with Apgars of 8 and 9 and weighing 5 lb 10 oz. Blood pressures were largely within the normal range intrapartum and , and the patient was discharged on day 2 with follow-up in clinic within 1 week. There were no other intrapartum or complications. [place] Baby Sandra: Infant gender: Female Presentation: vertex Placenta delivery description: Spontaneous cord vessel description: 3 Vessels score (1 min): 8 score (5 min): 9 Plan for aftercare: Patient has appointment in clinic in 1 week. PIH symptoms and precautions for return discussed.
[2019-12-15] MEDS: ACETAMINOPHEN 325 MG TABLET 650 MG PO (20:05)
[2019-12-15] MEDS: IBUPROFEN 600 MG TABLET PO (20:06)
[2019-12-15] MEDS: OXYCODONE/ACETAMINOPHEN 5/325 TABLET 1 TAB PO (22:18)
[2019-12-16] MEDS: IBUPROFEN 600 MG TABLET PO ×2 (08:20→19:46)
[2019-12-16] MEDS: ACETAMINOPHEN 325 MG TABLET 650 MG PO ×2 (08:20→19:46)
[2019-12-16] MEDS: PROPRANOLOL 10 MG TABLET 20 MG PO (09:20)
[2019-12-16] MEDS: OXYCODONE/ACETAMINOPHEN 5/325 TABLET 1 TAB PO (09:37)
--- NOTE | 2019-12-16 12:44 | P.PNOB_ITS ---
Subjective - OB Subjective Patient comments: no complaints [place] baby status: doing well and nursing well feeding status: exclusively breast feeding Narrative: Patient is a 24yo , PPD#1 s/p IOL for gHTN and uncomplicated . Patient reports that her LAW and visual changes are unchanged from her baseline this AM, but is otherwise feeling well with no SOB, chest pain, or other complaints, tolerating PO, ambulating, voiding, and passing flatus. Mom and baby are working on today. Date Patient Seen: 12/16/19 Time Patient Seen: 12:44 Exam Vital Signs (past 8 hours): 118/86, HR 77, T 97F Const General: cooperative, healthy appearing, comfortable and other (Resting in bed with baby) Resp Effort & Inspection: normal respiratory effort Auscultation: clear to auscultation bilaterally Cardio Rate: regular rate Rhythm: regular rhythm GI Palpation: soft and No tender Other: Fundus well below u Skin General: no rashes or lesions noted Objective Labs Result Diagrams: 12/14/19 19:30 12/14/19 19:30 Assessment & Plan Plan day: 1 plan OB: routine care and discharge home Comments: Patient recovering well with normal BPs, counselled on precautions for return and how to taper propranolol. precautions and f/u in one week discussed. Time Spent With Patient Time: Total time spent is greater than 50% in coordination of care (as documented) at patient's floor/unit and/or counseling patient: Time with patient: 15-24 minutes
--- NOTE | 2019-12-16 12:49 | PM.OBDS.1 ---
Discharge Providers Provider Date of admission: 12/14/19 18:56 Discharge Date: 12/16/19 Primary care physician: Rachel Merchant PA-C Consults: 12/16/19 17:14 Consult to Blue Split Trimmer Routine Comment: Discharge provider: Paula Mccarty MD Summary Hospital Course Date Patient Seen: 12/16/19 Time Patient Seen: 12:09 Procedures: This patient presented for scheduled induction of labor at 37 weeks for gestational hypertension. She was induced with vaginal Cytotec, Pitocin, and AROM, and was delivered of a healthy baby girl weighing 5 lb 10 oz, Apgars 8+9, over an intact perineum. There were no intrapartum or complications, and she was discharged on day 1 after discussion of precautions. Peripartum Data Delivery Method: Natural Vaginal Laceration description: None complications: none [place] Sandra: Gender: Female Disposition of : home Discharge Diagnosis (1) Vaginal delivery: Start Date: 12/15/19 Start Time: 16:39 Status: Acute Status at Discharge Cognitive/behavioral status at discharge: oriented Functional status at discharge: independent ambulation Overall status at discharge: patient is progressing back to baseline Time Spent with Patient Time attestation: Total time spent providing and/or coordinating discharge services: Time spent: Greater than 30 minutes Objective Labs Result Diagrams: 12/14/19 19:30 12/14/19 19:30 Exam Vital Signs (past 8 hours): CC day of discharge progress note. Discharge Plan Discharge Plan Patient Disposition: Home Discharge orders & Medications Prescriptions: Continued Pulmicort Flexhaler 90 mcg/actuation aerosol powdr breath activated 1 inhalation INHALATION BID Qty: 1 RF: 0 pantoprazole 40 mg tablet,delayed release (DR/EC) See Rx Instructions .ROUTE .COMPLEX Qty: 30 RF: 2 vit-iron fum-folic ac 2 each PO DAILY RF: 0 amoxicillin 875 mg tablet 875 mg PO BID Qty: 14 RF: 0 Discontinued propranolol 20 mg Tablet 20 mg PO BID RF: 0 Follow up/Referrals: Paula Mccarty MD [Physician] - 1 Week (BP check) Rachel Merchant PA-C [Primary Care Provider] - Diet/Activity/Treatments Diet: Regular Activity: Nothing in the vagina for 6 weeks. Avoid heavy lifting for 6 weeks. If you develop increasing bleeding, discharge, fevers, chills, nausea, vomiting, worsening headache or visual changes, or any other concerning symptoms, call or come to the ED. Skin/Wound/Dressing Care Report to your healthcare provider any signs of infection, such as:: chills, fever, night sweats, increased pain, unusual drainage and unusual redness Visit Report/Discharge Packet Instructions: DI for Labor and Delivery, Vaginal Stand Alone Forms: Discharge: Care Discharge Data Primary Care Provider: Rachel Merchant Discharges patient from system. Discharge Date/Time: 12/16/19 20:11
[2019-12-16 17:20] VITALS: BP 116/77; PULSE 98; RESP 17; TEMP 37.1
== END 2019-12-16 20:11 | disposition home or self-care (01) | DRG 807 ==
PROVIDERS: Admitting Provider Obstetrics & Gynecology; PCP Physician Assistant; Visit Provider Obstetrics & Gynecology
DX: O13.4 Gestational [pregnancy-induced] hypertension without significant proteinuria, complicating childbirth (principal); Z37.0 Single live birth; Z3A.37 37 weeks gestation of pregnancy
CPT/HCPCS: 01967; 59050; 59200; 59400; 59409; 84450; 84550; 85025; 86850; 86900; 86901; G0379; J2590; J2765; J3010

== ENCOUNTER → 2020-01-24 11:29 | Outpatient (CLI) | payer OTHER, SELFPAY ==
[2020-01-24 12:11] LABS: Add Manual Diff / Slide Review NO; Basophils Absolute Auto 100 /uL (0-100); Basophils Percent Auto 1.2 % (0-2); Eosinophils Absolute Auto 100 /uL (0-450); Eosinophils Percent Auto 1.3 % (2-4); Hematocrit 38.4 % (36-46); Hemoglobin 12.9 g/dL (12.0-16.0); Lymphocytes Absolute Auto 1700 /uL (1100-4500); Lymphocytes Percent Auto 28.4 % (25-40); Mean Corpuscular HGB Conc 33.5 % (30-36); Mean Corpuscular Hemoglobin 28.6 PG (26-34); Mean Corpuscular Volume 85.5 fL (80-100); Monocytes Absolute Auto 300 /uL (0-900); Monocytes Percent Auto 4.7 % (3-14); Neutrophils Absolute Auto 3800 /uL (1500-7000); Neutrophils Percent Auto 64.4 % (50-75); Platelet Count 344 X10^3/uL (150-400); Red Blood Cell Count 4.49 X10^6/uL (4.0-5.2); Red Cell Distribution Width 13.9 % (11.6-14.8)
[2020-01-24 12:42] LABS: Alanine Aminotransferase 23 IU/L (<35); Albumin 4.7 g/dL (3.5-5.0); Albumin Globulin Ratio 1.6 (1.0-2.8); Alkaline Phosphatase 124 U/L (38-126); Aspartate Aminotransferase 27 IU/L (14-36); Bilirubin Total 0.4 mg/dL (0.2-1.3); Blood Urea Nitrogen 16 mg/dL (7-17); Calcium 9.8 mg/dL (8.4-10.2); Carbon Dioxide 25 mmol/L (22-32); Chloride 105 mmol/L (98-107); Estimated Glomerular Filt Rate > 60.0 mL/min (>60); Globulin 2.9 g/dL (1.7-4.1); Glucose 86 mg/dL (70-100); HEMOLYSIS < 15 (0-50); Potassium 4.6 mmol/L (3.4-5.1); Sodium 139 mmol/L (137-145); Total Protein 7.6 g/dL (6.3-8.2)
== END ==
PROVIDERS: PCP Family Medicine; Referring Provider Family Medicine; Visit Provider Family Medicine
DX: R59.1 Generalized enlarged lymph nodes (principal)
CPT/HCPCS: 36415; 80053; 85025

== ENCOUNTER → 2020-04-02 12:13 | Outpatient (CLI) | payer OTHER, SELFPAY ==
--- NOTE | 2020-04-02 12:15 | DI.US.S_ITS ---
PROCEDURE: US PELVIC COMPLETE INDICATIONS: DUB 15 WEEKS POST ; POSSIBLE RPOC TECHNIQUE: Real-time scanning was performed of the pelvic organs, with image documentation. Additional endovaginal scanning was necessary due to incomplete visualization of the adnexal and endometrial structures by transabdominal scanning. COMPARISON: [facility], , PELVIC COMPLETE, 05/23/2019, 10:32. [facility], , PELVIC COMPLETE, 01/24/2019, 8:39. FINDINGS: Transabdominal scanning: Limited scanning through the kidneys shows no hydronephrosis. No pathologic free abdominal or pelvic fluid. Endovaginal scanning: Uterus: Uterus is normal in size at 3.3 x 5.2 x 5.3 cm. The endometrium contains what appears to be a solid mass measuring up to 1.4 x 0.7 x 1.4 cm with a small associated calcification measuring up to 8 mm suspicious for retained products of conception Ovaries: Normal. IMPRESSION: Presumed retained products of conception within the endometrial canal with associated dystrophic calcification. Normal-appearing ovaries. Dictated by: Fracisco Westbrook M.D. on 04/02/2020 at 13:42 Approved by: Fracisco Westbrook M.D. on 04/02/2020 at 13:44
== END ==
PROVIDERS: PCP Family Medicine; Referring Provider Obstetrics & Gynecology; Visit Provider Obstetrics & Gynecology
DX: O72.2 Delayed and secondary postpartum hemorrhage (principal); R10.2 Pelvic and perineal pain
CPT/HCPCS: 76856

== ENCOUNTER → 2020-04-03 14:37 | Outpatient (CLI) | payer OTHER, SELFPAY ==
[2020-04-03 15:22] LABS: Add Manual Diff / Slide Review NO; Basophils Absolute Auto 100 /uL (0-100); Basophils Percent Auto 1.3 % (0-2); Eosinophils Absolute Auto 100 /uL (0-450); Eosinophils Percent Auto 0.9 % (2-4); Hematocrit 40.9 % (36-46); Hemoglobin 13.7 g/dL (12.0-16.0); Lymphocytes Absolute Auto 2100 /uL (1100-4500); Lymphocytes Percent Auto 28.8 % (25-40); Mean Corpuscular HGB Conc 33.6 % (30-36); Mean Corpuscular Hemoglobin 28.8 PG (26-34); Mean Corpuscular Volume 85.6 fL (80-100); Monocytes Absolute Auto 400 /uL (0-900); Monocytes Percent Auto 5.3 % (3-14); Neutrophils Absolute Auto 4600 /uL (1500-7000); Neutrophils Percent Auto 63.7 % (50-75); Platelet Count 342 X10^3/uL (150-400); Red Blood Cell Count 4.77 X10^6/uL (4.0-5.2); White Blood Cell Count 7.2 X10^3/uL (4.5-11.0)
[2020-04-03 15:45] LABS: Hemoglobin A1C% w Est Avg Glu 5.3 % (4.0-6.0)
[2020-04-03 16:13] LABS: Alanine Aminotransferase 18 IU/L (<35); Albumin 5.2 g/dL (3.5-5.0); Albumin Globulin Ratio 1.6 (1.0-2.8); Alkaline Phosphatase 124 U/L (38-126); Aspartate Aminotransferase 27 IU/L (14-36); BUN Creatinine Ratio 21.1 (6-22); Bilirubin Total 0.2 mg/dL (0.2-1.3); Blood Urea Nitrogen 15 mg/dL (7-17); Carbon Dioxide 28 mmol/L (22-32); Chloride 103 mmol/L (98-107); Estimated Glomerular Filt Rate > 60.0 mL/min (>60); Globulin 3.2 g/dL (1.7-4.1); Glucose 96 mg/dL (70-100); HEMOLYSIS < 15 (0-50); Lipase 104 U/L (23-300); Potassium 4.3 mmol/L (3.4-5.1); Sodium 140 mmol/L (137-145); Total Protein 8.4 g/dL (6.3-8.2)
[2020-04-03 17:18] LABS: Thyroid Stimulating Hormone 0.83 uIU/mL (0.47-4.68)
== END ==
PROVIDERS: PCP Family Medicine; Referring Provider Family Medicine; Visit Provider Family Medicine
DX: R10.13 Epigastric pain (principal); R53.83 Other fatigue; R45.0 Nervousness
CPT/HCPCS: 36415; 80053; 83036; 83690; 84443; 85025

== ENCOUNTER → 2020-04-11 13:44 | Outpatient (CLI) | payer OTHER, SELFPAY ==
--- NOTE | 2020-04-11 13:45 | DI.RAD.S_ITS ---
PROCEDURE: FL BARIUM SWALLOW INDICATIONS: Progressive epigastric discomfort, dyspepsia COMPARISON: None. FINDINGS: Function: There is normal esophageal peristalsis. There was mild to moderate elicited gastroesophageal reflux early in the examination. Subsequently reflux was not observed. Morphology: Air-contrast images demonstrate normal mucosal morphology. Single contrast views show no esophageal strictures, extrinsic mass effects, or diverticula. Limited images of the stomach demonstrate normal appearance. IMPRESSION: Normal esophagram except for episodic mild to moderate gastroesophageal reflux early in the examination without persistence of significant reflux subsequently. Dictated by: Fracisco Westbrook M.D. on 04/11/2020 at 15:54 Approved by: Fracisco Westbrook M.D. on 04/11/2020 at 15:55
--- NOTE | 2020-04-11 13:45 | DI.US.S_ITS ---
PROCEDURE: US ABDOMEN COMPLETE INDICATIONS: PROGRESSIVE EPIGASTRIC DISCOMFORT, DYSPEPSIA TECHNIQUE: Real-time scanning was performed of the abdominal and retroperitoneal organs, with image documentation. COMPARISON: None. FINDINGS: Liver: Liver is normal in size and homogeneous in echotexture. Gallbladder: There is no gallstone. No gallbladder wall thickening or pericholecystic fluid. No sonographic Dyson's sign. Biliary ducts: Intrahepatic bile ducts are non-dilated. Extrahepatic bile duct caliber measures 2.3 mm. Normal is 6-7 mm or less in diameter, or 10 mm or less post-cholecystectomy. Pancreas: Visualized portions of the pancreas are sonographically normal. Spleen: Spleen is normal in size and homogeneous in echotexture. Kidneys: Kidneys are normal in size and echotexture. Right kidney measures 12.1 cm long; left kidney measures 10.5 cm long. No hydronephrosis or nephrolithiasis. No solid masses. Complex appearance of upper pole right renal calyx is seen measures 2.3 x 1.6 x 2.6 cm in size. Aorta: Visualized aorta is normal in caliber at less than 3 cm. Iliacs: Proximal common iliac arteries are normal in caliber at less than 2.5 cm. IVC: Intrahepatic inferior vena cava is patent. Miscellaneous: No free abdominal fluid. IMPRESSION: 1. Complex appearing upper pole right renal calyx as above. A renal mass cannot be excluded. Consider CT of abdomen without and with contrast for further evaluation. No hydronephrosis. Normal appearing left kidney. 2. Rest of the exam is unremarkable. Dictated by: Arun Hicks M.D. on 04/11/2020 at 17:01 Approved by: Arun Hicks M.D. on 04/11/2020 at 17:03
== END ==
PROVIDERS: PCP Family Medicine; Referring Provider Family Medicine; Visit Provider Family Medicine
DX: R10.13 Epigastric pain (principal); N28.9 Disorder of kidney and ureter, unspecified; K21.9 Gastro-esophageal reflux disease without esophagitis
CPT/HCPCS: 74220; 76700

== ENCOUNTER → 2020-04-25 14:17 | Outpatient (CLI) | payer OTHER, SELFPAY ==
--- NOTE | 2020-04-25 14:17 | DI.CT.S_ITS ---
PROCEDURE: CT ABDOMEN WO/W CON INDICATIONS: Follow up abdominal US renal finding TECHNIQUE: Optional 5 mm thick noncontrast images acquired from the diaphragm to the iliac crests. After the administration of intravenous contrast, 5 mm thick images again acquired from the diaphragm to the iliac crests in the arterial and urographic phases. 5 mm thick coronal and sagittal reformats were then acquired. For radiation dose reduction, the following was used: automated exposure control, adjustment of mA and/or kV according to patient size. COMPARISON: [facility], US, US ABDOMEN COMPLETE, 04/11/2020, 13:54. FINDINGS: Image quality: Excellent. Lung bases: Lung bases are clear. Heart size is normal. Genitourinary: The prior ultrasound dated to 04/11/20 head raise concern for some form of complex abnormality at the upper third of the right kidney. This area is well-visualized and free of mass lesion. No urothelial or renal cortical malignancy is suspected in that area. 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 Other solid organs: Liver is normal in size and enhancement. Gallbladder appears normal. Biliary system is non dilated. Pancreas enhances normally. Spleen is normal in size and enhancement. No adrenal nodules. Peritoneum and bowel: Unenhanced bowel loops are normal in wall thickness and caliber. No free fluid or air. Nodes and vessels: No retroperitoneal or mesenteric adenopathy by size criteria. Aorta and inferior vena cava are normal in caliber. Bones: No suspicious bony lesions. No vertebral body compression fractures. Miscellaneous: No ventral hernias. IMPRESSION: No renal cortical or urothelial mass lesion is present. 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 The resultant morphologic change in the upper third renal sinus area produced an appearance that warranted this followup, but no additional followup is necessary. Dictated by: Fracisco Westbrook M.D. on 04/25/2020 at 15:26 Approved by: Fracisco Westbrook M.D. on 04/25/2020 at 16:06
== END ==
PROVIDERS: PCP Family Medicine; Referring Provider Family Medicine; Visit Provider Family Medicine
DX: R93.421 Abnormal radiologic findings on diagnostic imaging of right kidney (principal); N28.1 Cyst of kidney, acquired
CPT/HCPCS: 74170; Q9967

== ENCOUNTER → 2020-05-03 15:23 | Outpatient (CLI) | payer OTHER, SELFPAY ==
[2020-05-04 09:12] LABS: COVID19 Sendout Not Detected (Not Detect)
== END ==
PROVIDERS: PCP Family Medicine; Visit Provider Physician Assistant
DX: Z01.812 Encounter for preprocedural laboratory examination (principal)
CPT/HCPCS: 87635

== ENCOUNTER 2020-05-06 07:06 | Day surgery (SDC) | payer OTHER, SELFPAY ==
[2020-04-30 14:39] VITALS: BMI 29.0
[2020-05-06] VITALS (11 sets, daily range): BP systolic 95–124; BP diastolic 53–83; PULSE 82–120; RESP 10–18; TEMP 35.9–36.7; O2SAT 95–100; BMI 29.0
[2020-05-06] MEDS: LACTATED RINGERS 1,000 ML 42 ML IV (07:20)
--- NOTE | 2020-05-06 07:43 | PM.PREOP ---
Pre-operative Note COVID-19 COVID-19 status: Negative Result date/Date tested (Pos, Neg/Pending): 05/03/20 Interval Note History & Physical reviewed/Exam performed by Physician: Yes Changes to H&P: No
--- NOTE | 2020-05-06 07:48 | SUR.PREOP ---
Pt voided in BR in waiting room, 200 mls bolus given in opd for pt to void
--- NOTE | 2020-05-06 08:03 | SUR.OPER ---
Lithotomy on padded OR bed, head on pillow, arms secured on padded arm boards at <90 degrees abduction. Legs secured in padded yellow fins stirrups.
--- NOTE | 2020-05-06 08:33 | P.OP_ITS ---
Operative Date/Time/Diagnoses Date of procedure: 05/06/20 Time of procedure: 07:45 Pre-op diagnosis: abnormal uterine bleeding Post-op diagnosis: same Procedure & Clinicians Procedure: operative hysteroscopy Same procedure as scheduled: Yes Indications: abnormal uterine bleeding Surgeon: Paula Mccarty Click Yes if Unassisted: Yes Anesthesia Type: General Operative Notes Findings: Normal vulva, vagina, and cervix. Endometrium consistent with and recent progesterone supplementation. Specimen(s): none sent Estimated Blood Loss (mL): 5 Procedure in detail: After informed consent was obtained, the patient was taken to the operating room where general anesthesia was obtained. She was placed in the dorsal lithotomy position and prepped and draped in the normal sterile fashion. The patient had voided just prior to transfer to the operating room, so catheterization was not necessary. An open sided speculum was placed in the vagina, where the cervix was easily visualized and the anterior lip grasped with a single toothed tenaculum. The open sided speculum was replaced with the kristal ghted speculum. The cervix was easily serially dilated to 6mm with hegar dilators with gentle pressure. The diagnostic hysteroscope was inserted using 3% sorbitol as the distending medium, but did not have the flow speed for good visualization. The cervix was further dilated to 7mm, and the operative hysteroscope inserted with good visualization. The ostia were easily visualized bilaterally, and there were no intrauterine masses or other endometrial abnormalities noted on thorough inspection of the endometrial cavity. The hysteroscope was removed from the uterus, and the tenaculum removed from the anterior lip of the cervix with spontaneous hemostasis at the tenaculum sites. The weighted speculum was removed from the vagina. Bleeding was minimal. The patient tolerated the procedure well, and was taken to the recovery room in stable condition. Complications: none Post-operative Condition: stable Disposition: PACU Plan for aftercare: Routine postoperative care, clinic follow up.
[2020-05-06] MEDS: ONDANSETRON 4 MG/2 ML INJ IV (08:41)
[2020-05-06] MEDS: KETOROLAC 30 MG/ML VIAL IV (08:46)
[2020-05-06] MEDS: fentaNYL 100 MCG/2 ML INJ IV (08:48)
--- NOTE | 2020-05-06 09:06 | SUR.PHASEI ---
Medicated with fentanyl and torodol for pain ondansetron for nausea. Pain rated 5/10 and states oit is tolerable and nausea resolved
== END 2020-05-06 09:52 | disposition home or self-care (01) ==
PROVIDERS: PCP Family Medicine; Referring Provider Obstetrics & Gynecology; Visit Provider Obstetrics & Gynecology
PROC: 0UDB8ZZ Extraction of Endometrium, Via Natural or Artificial Opening Endoscopic (ICD-10-PCS; CPT 58558; principal; 2020-05-06 07:45)
DX: N93.9 Abnormal uterine and vaginal bleeding, unspecified (principal); F41.9 Anxiety disorder, unspecified; N94.10 Unspecified dyspareunia
CPT/HCPCS: 58555; J1100; J1885; J2405; J2704; J3010

== ENCOUNTER → 2020-05-28 14:29 | Outpatient (CLI) | payer OTHER, SELFPAY ==
[2020-05-29 07:09] LABS: Candida species Negative (Negative); Gardnerella vaginalis Negative (Negative); Trichomoas vaginalis Negative (Negative)
== END ==
PROVIDERS: PCP Family Medicine; Visit Provider Obstetrics & Gynecology
DX: N89.8 Other specified noninflammatory disorders of vagina (principal); N94.9 Unspecified condition associated with female genital organs and menstrual cycle
CPT/HCPCS: 87480; 87510; 87660

== ENCOUNTER → 2020-08-05 09:11 | Outpatient (CLI) | payer OTHER, SELFPAY | PROVIDERS: PCP Family Medicine; Visit Provider Obstetrics & Gynecology | DX: R39.9 Unspecified symptoms and signs involving the genitourinary system (principal) | CPT/HCPCS: 87086 ==

== ENCOUNTER → 2021-05-30 11:15 | Outpatient (CLI) | payer OTHER, SELFPAY ==
--- NOTE | 2021-05-30 11:17 | DI.US.S_ITS ---
PROCEDURE: US PELVIC COMPLETE INDICATIONS: RIGHT PELVIC PAIN. HISTORY OF CYSTS. TECHNIQUE: Real-time scanning was performed of the pelvic organs, with image documentation. Additional endovaginal scanning was necessary due to incomplete visualization of the adnexal and endometrial structures by transabdominal scanning. COMPARISON: [facility], , US PELVIC COMPLETE, 04/02/2020, 12:23. FINDINGS: Uterus: Uterus is anteverted and normal in size at 7.4 x 5.3 x 3.6 cm. The myometrium is diffusely heterogeneous. No discrete mass. The endometrium measures 7.2 mm in combined thickness. Ovaries: The right ovary measures 5.0 x 2.4 x 2.5 cm for a volume of 15.6 cc. The left ovary measures 4.3 x 2.2 x 2.1 cm for a volume of 10.3 cc. The right ovary appears enlarged with peripherally displaced subcentimeter follicles as well as a complex dominant follicle along one margin measuring 2.3 cm. This has peripheral hypervascularity with color Doppler imaging. The left ovary is normal size but demonstrates increased central stroma and peripherally displaced follicles. Other: No pathologic free abdominal or pelvic fluid. IMPRESSION: 1. Morphologic findings in the ovaries suggestive of polycystic ovarian syndrome. For definitive diagnosis, please correlate clinically and with lab values. 2. Slightly heterogeneous myometrium suggestive of adenomyosis. 3. Complex right ovarian follicle. This may be hemorrhagic and symptomatic. Dictated by: Yanni Dick M.D. on 05/30/2021 at 17:40 Approved by: Yanni Dick M.D. on 05/30/2021 at 17:51
== END ==
PROVIDERS: PCP Family Medicine; Referring Provider Obstetrics & Gynecology; Visit Provider Obstetrics & Gynecology
DX: R10.2 Pelvic and perineal pain (principal); Z87.42 Personal history of other diseases of the female genital tract
CPT/HCPCS: 76830; 76856

== ENCOUNTER → 2021-06-17 09:11 | Outpatient (CLI) | payer OTHER, SELFPAY ==
[2021-06-17 10:07] LABS: Add Manual Diff / Slide Review NO; Basophils Absolute Auto 100 /uL (0-100); Basophils Percent Auto 1.1 % (0-2); Eosinophils Absolute Auto 0 /uL (0-450); Eosinophils Percent Auto 0.9 % (2-4); Hematocrit 40.8 % (36-46); Hemoglobin 13.6 g/dL (12.0-16.0); Lymphocytes Absolute Auto 1700 /uL (1100-4500); Lymphocytes Percent Auto 30.7 % (25-40); Mean Corpuscular HGB Conc 33.2 % (30-36); Mean Corpuscular Hemoglobin 28.4 PG (26-34); Mean Corpuscular Volume 85.3 fL (80-100); Monocytes Absolute Auto 300 /uL (0-900); Monocytes Percent Auto 5.2 % (3-14); Neutrophils Absolute Auto 3400 /uL (1500-7000); Neutrophils Percent Auto 62.1 % (50-75); Platelet Count 287 X10^3/uL (150-400); Red Blood Cell Count 4.79 X10^6/uL (4.0-5.2); Red Cell Distribution Width 12.9 % (11.6-14.8); White Blood Cell Count 5.4 X10^3/uL (4.5-11.0)
[2021-06-17 10:49] LABS: Thyroid Stimulating Hormone 0.974 uIU/mL (0.47-4.68)
[2021-06-17 11:01] LABS: Rubella Antibody IgG 89.5 IU/mL (>15)
[2021-06-18 06:18] LABS: Rubeola Measles IgG 77.2 AU/mL (Immune >16.4); Varicella IgG Antibody <135 index (Immune >165)
[2021-06-18 11:54] LABS: Mumps Virus IgG Antibody 84.1 AU/mL (Immune >10.9)
== END ==
PROVIDERS: PCP Family Medicine; Referring Provider Obstetrics & Gynecology; Visit Provider Obstetrics & Gynecology
DX: Z31.69 Encounter for other general counseling and advice on procreation (principal)
CPT/HCPCS: 36415; 84439; 84443; 85025; 86735; 86762; 86765; 86787

== ENCOUNTER → 2021-07-25 16:51 | Outpatient (CLI) | payer OTHER, SELFPAY ==
[2021-07-25 19:25] LABS: Urine N gonorrhoeae NOT DETECTED
[2021-07-25 19:31] LABS: Urine Chlamydia NOT DETECTED
== END ==
PROVIDERS: PCP Family Medicine; Referring Provider Specialist; Visit Provider Specialist
DX: Z20.2 Contact with and (suspected) exposure to infections with a predominantly sexual mode of transmission (principal)
CPT/HCPCS: 87491; 87591

== ENCOUNTER → 2021-09-18 16:47 | Outpatient (CLI) | payer OTHER, SELFPAY ==
--- NOTE | 2021-09-18 16:51 | DI.RAD.S_ITS ---
PROCEDURE: XR WRIST RT MIN 3V INDICATIONS: right wrist pain TECHNIQUE: 3 views of the wrist were acquired. COMPARISON: None. FINDINGS: Bones: No fractures or dislocations. No suspicious bony lesions. Soft tissues: No suspicious soft tissue calcifications. IMPRESSION: No acute findings. If the patient's pain or other symptoms persist, consider further evaluation with MRI Dictated by: Elroy Sauer M.D. on 09/19/2021 at 10:06 Approved by: Elroy Sauer M.D. on 09/19/2021 at 10:07
== END ==
PROVIDERS: PCP Family Medicine; Referring Provider Nurse Practitioner Family; Visit Provider Nurse Practitioner Family
DX: M25.531 Pain in right wrist (principal)
CPT/HCPCS: 73110

== ENCOUNTER → 2021-10-20 12:53 | Outpatient (CLI) | payer OTHER, SELFPAY ==
[2021-10-20 14:18] LABS: HCG Quantitative /Beta subunit 54.9 mIU/mL
== END ==
PROVIDERS: PCP Family Medicine; Referring Provider Obstetrics & Gynecology; Visit Provider Obstetrics & Gynecology
DX: N91.2 Amenorrhea, unspecified (principal)
CPT/HCPCS: 36415; 84702

== ENCOUNTER → 2021-10-22 13:14 | Outpatient (CLI) | payer OTHER, SELFPAY ==
[2021-10-22 16:28] LABS: HCG Quantitative /Beta subunit 97.9 mIU/mL
== END ==
PROVIDERS: PCP Family Medicine; Referring Provider Obstetrics & Gynecology; Visit Provider Obstetrics & Gynecology
DX: N91.2 Amenorrhea, unspecified (principal)
CPT/HCPCS: 36415; 84702

== ENCOUNTER → 2021-10-24 11:53 | Outpatient (CLI) | payer OTHER, SELFPAY ==
[2021-10-24 12:46] LABS: HCG Quantitative /Beta subunit 188.3 mIU/mL
== END ==
PROVIDERS: PCP Family Medicine; Referring Provider Obstetrics & Gynecology; Visit Provider Obstetrics & Gynecology
DX: Z34.81 Encounter for supervision of other normal pregnancy, first trimester (principal)
CPT/HCPCS: 36415; 84702

== ENCOUNTER → 2021-10-28 10:49 | Outpatient (CLI) | payer OTHER, SELFPAY ==
--- NOTE | 2021-10-28 10:49 | DI.US.S_ITS ---
PROCEDURE: US PELVIC COMPLETE INDICATIONS: POSITIVE HCG; DATES TECHNIQUE: Real-time scanning was performed of the pelvic organs, with image documentation. Additional endovaginal scanning was necessary due to incomplete visualization of the adnexal and endometrial structures by transabdominal scanning. COMPARISON: [facility], US, US PELVIC COMPLETE, 05/30/2021, 11:27. FINDINGS: Uterus: Uterus is retroverted and normal in size at 7 x 4.4 x 5.7 cm. The myometrium is predominantly homogeneous. The endometrium measures 11.2 mm combined thickness. No evidence of an IUP. Ovaries: The right ovary measures 5.6 x 2 x 1.7 cm. Two echogenic foci seen within the right ovary, measuring up to 2 cm, which may reflect corpus luteum and/or hemorrhagic cysts. The left ovary measures 4.8 x 1.4 x 1.9 cm. No adnexal masses are seen. Other: Moderate free pelvic fluid. IMPRESSION: 1. No sonographic evidence of intrauterine . 2. Two echogenic foci within the right ovary, which may reflect corpus luteum and or hemorrhagic cysts. However, ectopic cannot be excluded. Consider correlation with serial quantitative beta hCGs. 3. Moderate free fluid in the pelvis. We strive to produce accurate, complete, and clear reports of imaging services. To assist us in improving patient care, this report was composed using standard report templates and voice recognition software. Therefore, it may contain abnormal punctuation, insertions and/or omissions. Occasional wrong-word or sound-alike substitutions may occur. Though we review the report and make efforts to correct it, we do recommend that the report be read carefully in proper context to recognize any text inaccuracies. Dictated by: Jigar Hall M.D. on 10/28/2021 at 11:37 Approved by: Jigar Hall M.D. on 10/28/2021 at 11:41
[2021-10-28 17:19] LABS: HCG Quantitative /Beta subunit 450.7 mIU/mL
== END ==
PROVIDERS: PCP Family Medicine; Referring Provider Obstetrics & Gynecology; Visit Provider Obstetrics & Gynecology
DX: O26.899 Other specified pregnancy related conditions, unspecified trimester (principal); R10.2 Pelvic and perineal pain; N91.2 Amenorrhea, unspecified
CPT/HCPCS: 36415; 76830; 76856; 84702

== ENCOUNTER → 2021-10-30 12:26 | Outpatient (CLI) | payer OTHER, SELFPAY | PROVIDERS: PCP Family Medicine; Referring Provider Obstetrics & Gynecology; Visit Provider Obstetrics & Gynecology | DX: O36.80X0 Pregnancy with inconclusive fetal viability, not applicable or unspecified (principal) | CPT/HCPCS: 36415; 84702 ==

== ENCOUNTER → 2021-11-01 13:55 | Outpatient (CLI) | payer OTHER, SELFPAY ==
[2021-11-01 14:59] LABS: HCG Quantitative /Beta subunit 695.7 mIU/mL
== END ==
PROVIDERS: PCP Family Medicine; Referring Provider Obstetrics & Gynecology; Visit Provider Obstetrics & Gynecology
DX: Z32.01 Encounter for pregnancy test, result positive (principal)
CPT/HCPCS: 84702

== ENCOUNTER → 2021-11-03 10:38 | Outpatient (CLI) | payer OTHER, SELFPAY ==
--- NOTE | 2021-11-03 10:39 | DI.US.S_ITS ---
PROCEDURE: US PELVIC COMPLETE INDICATIONS: PELVIC PAIN, VIABILITY AND DATING TECHNIQUE: Real-time scanning was performed of the pelvic organs, with image documentation. Additional endovaginal scanning was necessary due to incomplete visualization of the adnexal and endometrial structures by transabdominal scanning. COMPARISON: [facility], US, US PELVIC COMPLETE, 10/28/2021, 11:06. FINDINGS: Uterus: Uterus is anteverted and normal in size. The myometrium is homogeneous. The endometrium measures 12.9 mm combined thickness. No evidence of intrauterine is identified. Ovaries: The right ovary measures 2.5 x 1.8 x 1.3 cm. The left ovary measures 3.2 x 1.4 x 1.3 cm Other: Small amount of fluid in the right adnexa. A thick-walled hypoechoic lesion is seen in the right adnexa, measuring 2.5 x 1.3 by 2.4 cm, concerning for an ectopic . IMPRESSION: Hypoechoic lesion in the right adnexa, concerning for ectopic . Concordant interpretation with preliminary report provided by the bingo checker. We strive to produce accurate, complete, and clear reports of imaging services. To assist us in improving patient care, this report was composed using standard report templates and voice recognition software. Therefore, it may contain abnormal punctuation, insertions and/or omissions. Occasional wrong-word or sound-alike substitutions may occur. Though we review the report and make efforts to correct it, we do recommend that the report be read carefully in proper context to recognize any text inaccuracies. Dictated by: Jigar Hall M.D. on 11/03/2021 at 11:29 Approved by: Jigar Hall M.D. on 11/03/2021 at 11:35
[2021-11-03 13:43] LABS: Add Manual Diff / Slide Review NO; Basophils Absolute Auto 100 /uL (0-100); Basophils Percent Auto 0.8 % (0-2); Eosinophils Absolute Auto 0 /uL (0-450); Eosinophils Percent Auto 0.5 % (2-4); Hematocrit 38.6 % (36-46); Lymphocytes Absolute Auto 1500 /uL (1100-4500); Lymphocytes Percent Auto 22.1 % (25-40); Mean Corpuscular HGB Conc 33.6 % (30-36); Mean Corpuscular Volume 86.3 fL (80-100); Monocytes Absolute Auto 300 /uL (0-900); Monocytes Percent Auto 4.8 % (3-14); Neutrophils Absolute Auto 5000 /uL (1500-7000); Neutrophils Percent Auto 71.8 % (50-75); Platelet Count 340 X10^3/uL (150-400); Red Blood Cell Count 4.47 X10^6/uL (4.0-5.2); Red Cell Distribution Width 12.7 % (11.6-14.8)
[2021-11-03 14:55] LABS: Alanine Aminotransferase 11 IU/L (<35); Albumin 4.7 g/dL (3.5-5.0); Alkaline Phosphatase 69 U/L (38-126); Aspartate Aminotransferase 18 IU/L (14-36); BUN Creatinine Ratio 18.2 (6-22); Bilirubin Total 0.3 mg/dL (0.2-1.3); Blood Urea Nitrogen 10 mg/dL (7-17); Calcium 9.8 mg/dL (8.4-10.2); Carbon Dioxide 27 mmol/L (22-32); Chloride 104 mmol/L (98-107); Estimated Glomerular Filt Rate > 60.0 mL/min (>60); Globulin 2.4 g/dL (1.7-4.1); Glucose 87 mg/dL (70-100); HEMOLYSIS < 15 (0-50); Potassium 4.2 mmol/L (3.4-5.1); Sodium 139 mmol/L (137-145); Total Protein 7.1 g/dL (6.3-8.2)
[2021-11-03 15:09] LABS: HCG Quantitative /Beta subunit 1029.1 mIU/mL
== END ==
PROVIDERS: PCP Family Medicine; Referring Provider Obstetrics & Gynecology; Visit Provider Obstetrics & Gynecology
DX: O36.80X0 Pregnancy with inconclusive fetal viability, not applicable or unspecified (principal); O26.891 Other specified pregnancy related conditions, first trimester; R10.2 Pelvic and perineal pain
CPT/HCPCS: 36415; 76830; 76856; 80053; 84702; 85025

== ENCOUNTER → 2021-11-07 11:31 | Outpatient (CLI) | payer OTHER, SELFPAY ==
[2021-11-07 12:18] LABS: HCG Quantitative /Beta subunit 1041.2 mIU/mL
== END ==
PROVIDERS: PCP Family Medicine; Referring Provider Obstetrics & Gynecology; Visit Provider Obstetrics & Gynecology
DX: O00.90 Unspecified ectopic pregnancy without intrauterine pregnancy (principal)
CPT/HCPCS: 36415; 84702

== ENCOUNTER → 2021-11-10 11:18 | Outpatient (CLI) | payer OTHER, SELFPAY ==
[2021-11-10 12:38] LABS: HCG Quantitative /Beta subunit 470.8 mIU/mL
== END ==
PROVIDERS: PCP Family Medicine; Referring Provider Obstetrics & Gynecology; Visit Provider Obstetrics & Gynecology
DX: O00.101 Right tubal pregnancy without intrauterine pregnancy (principal)
CPT/HCPCS: 36415; 84702

== ENCOUNTER → 2021-11-18 15:55 | Outpatient (CLI) | payer OTHER, SELFPAY ==
[2021-11-18 18:05] LABS: HCG Quantitative /Beta subunit 113.7 mIU/mL
== END ==
PROVIDERS: PCP Family Medicine; Referring Provider Obstetrics & Gynecology; Visit Provider Obstetrics & Gynecology
DX: O00.101 Right tubal pregnancy without intrauterine pregnancy (principal)
CPT/HCPCS: 36415; 84702

== ENCOUNTER → 2021-11-26 13:37 | Outpatient (CLI) | payer OTHER, SELFPAY ==
[2021-11-26 16:18] LABS: HCG Quantitative /Beta subunit 44 mIU/mL
== END ==
PROVIDERS: PCP Family Medicine; Referring Provider Obstetrics & Gynecology; Visit Provider Obstetrics & Gynecology
DX: O00.101 Right tubal pregnancy without intrauterine pregnancy (principal)
CPT/HCPCS: 36415; 84702

== ENCOUNTER → 2021-12-04 13:52 | Outpatient (CLI) | payer OTHER, SELFPAY ==
[2021-12-04 14:45] LABS: HCG Quantitative /Beta subunit 16.1 mIU/mL
== END ==
PROVIDERS: PCP Family Medicine; Referring Provider Obstetrics & Gynecology; Visit Provider Obstetrics & Gynecology
DX: O00.101 Right tubal pregnancy without intrauterine pregnancy (principal)
CPT/HCPCS: 36415; 84702

== ENCOUNTER → 2021-12-15 12:23 | Outpatient (CLI) | payer OTHER, SELFPAY ==
[2021-12-15 14:14] LABS: HCG Quantitative /Beta subunit < 2.4 mIU/mL
== END ==
PROVIDERS: PCP Family Medicine; Referring Provider Obstetrics & Gynecology; Visit Provider Obstetrics & Gynecology
DX: O00.101 Right tubal pregnancy without intrauterine pregnancy (principal)
CPT/HCPCS: 36415; 84702

== ENCOUNTER → 2022-04-01 13:56 | Outpatient (CLI) | payer OTHER, SELFPAY ==
[2022-04-01 16:52] LABS: HCG Quantitative /Beta subunit 33.9 mIU/mL
== END ==
PROVIDERS: PCP Family Medicine; Referring Provider Obstetrics & Gynecology; Visit Provider Obstetrics & Gynecology
DX: Z32.01 Encounter for pregnancy test, result positive (principal)
CPT/HCPCS: 36415; 84702

== ENCOUNTER → 2022-04-03 13:53 | Outpatient (CLI) | payer OTHER, SELFPAY ==
[2022-04-03 15:30] LABS: HCG Quantitative /Beta subunit 76.6 mIU/mL
== END ==
PROVIDERS: PCP Family Medicine; Referring Provider Obstetrics & Gynecology; Visit Provider Obstetrics & Gynecology
DX: Z32.01 Encounter for pregnancy test, result positive (principal)
CPT/HCPCS: 36415; 84702

== ENCOUNTER → 2022-04-07 08:55 | Outpatient (CLI) | payer OTHER, SELFPAY ==
[2022-04-07 09:38] LABS: Appearance Urine UA CLEAR; Bilirubin Urine UA NEGATIVE (NEGATIVE); Color Urine UA YELLOW; Glucose Urine UA NEGATIVE (Negative); Ketones Urine UA NEGATIVE (NEGATIVE); Leukocyte Esterase Urine UA NEGATIVE (NEGATIVE); Nitrite Urine UA NEGATIVE (Negative); Occult Blood Urine UA TRACE-LYSED (Negative); Protein Urine UA 1+ (Negative); Specific Gravity Urine UA 1.015 (1.000-1.035); Urobilinogen Urine UA 0.2 E.U./dL (0.2)
[2022-04-07 09:39] LABS: pH Urine UA 7.5 (4.5-8.0)
== END ==
PROVIDERS: PCP Family Medicine; Referring Provider Obstetrics & Gynecology; Visit Provider Obstetrics & Gynecology
DX: N39.0 Urinary tract infection, site not specified (principal)
CPT/HCPCS: 81003

== ENCOUNTER → 2022-04-10 11:03 | Outpatient (CLI) | payer OTHER, SELFPAY ==
[2022-04-10 12:29] LABS: HCG Quantitative /Beta subunit 1741.3 mIU/mL
== END ==
PROVIDERS: PCP Family Medicine; Referring Provider Obstetrics & Gynecology; Visit Provider Obstetrics & Gynecology
DX: Z32.01 Encounter for pregnancy test, result positive (principal)
CPT/HCPCS: 36415; 84702

== ENCOUNTER → 2022-04-14 10:26 | Outpatient (CLI) | payer OTHER, SELFPAY ==
[2022-04-14 12:00] LABS: HCG Quantitative /Beta subunit 9740.4 mIU/mL
== END ==
PROVIDERS: PCP Family Medicine; Referring Provider Obstetrics & Gynecology; Visit Provider Obstetrics & Gynecology
DX: O09.10 Supervision of pregnancy with history of ectopic pregnancy, unspecified trimester (principal)
CPT/HCPCS: 36415; 84702

== ENCOUNTER → 2022-05-22 16:46 | Outpatient (CLI) | payer OTHER, SELFPAY ==
[2022-05-22 17:33] LABS: Add Manual Diff / Slide Review NO; Basophils Absolute Auto 100 /uL (0-100); Basophils Percent Auto 0.7 % (0-2); Eosinophils Absolute Auto 0 /uL (0-450); Eosinophils Percent Auto 0.5 % (2-4); Lymphocytes Absolute Auto 1900 /uL (1100-4500); Lymphocytes Percent Auto 23.1 % (25-40); Mean Corpuscular HGB Conc 34.2 % (30-36); Mean Corpuscular Hemoglobin 29.1 PG (26-34); Mean Corpuscular Volume 84.9 fL (80-100); Monocytes Absolute Auto 400 /uL (0-900); Monocytes Percent Auto 4.4 % (3-14); Neutrophils Absolute Auto 5900 /uL (1500-7000); Neutrophils Percent Auto 71.3 % (50-75); Platelet Count 288 X10^3/uL (150-400); Red Blood Cell Count 4.48 X10^6/uL (4.0-5.2); Red Cell Distribution Width 12.7 % (11.6-14.8); White Blood Cell Count 8.3 X10^3/uL (4.5-11.0)
[2022-05-23 09:08] LABS: RPR Screen Non Reactive (Non Reactive)
[2022-05-24 13:09] LABS: Varicella IgG Antibody <135 index (Immune >165)
[2022-05-25 18:08] LABS: HIV 1 & 2 Ab/Ag 4th Gen Combo NEGATIVE (NEGATIVE); Hep C Virus Ab w/Reflex Quant NEGATIVE s/c (NEGATIVE); Hepatitis B Surface Antigen NEGATIVE s/c (NEGATIVE)
== END ==
PROVIDERS: PCP Family Medicine; Referring Provider Obstetrics & Gynecology; Visit Provider Obstetrics & Gynecology
DX: Z34.81 Encounter for supervision of other normal pregnancy, first trimester (principal)
CPT/HCPCS: 36415; 80055; 86787; 86803; 86850; 86900; 86901; 87389

== ENCOUNTER → 2022-06-22 16:41 | Outpatient (CLI) | payer OTHER, SELFPAY ==
[2022-06-22 19:06] LABS: Appearance Urine UA CLEAR; Bilirubin Urine UA NEGATIVE (NEGATIVE); Color Urine UA YELLOW; Glucose Urine UA NEGATIVE (Negative); Ketones Urine UA TRACE (NEGATIVE); Leukocyte Esterase Urine UA NEGATIVE (NEGATIVE); Nitrite Urine UA NEGATIVE (Negative); Occult Blood Urine UA TRACE-INTACT (Negative); Protein Urine UA NEGATIVE (Negative); Urobilinogen Urine UA 0.2 E.U./dL (0.2)
== END ==
PROVIDERS: PCP Family Medicine; Visit Provider Obstetrics & Gynecology
DX: Z34.81 Encounter for supervision of other normal pregnancy, first trimester (principal)
CPT/HCPCS: 81003; 87086

== ENCOUNTER → 2022-07-10 11:21 | Outpatient (CLI) | payer OTHER, SELFPAY ==
[2022-07-14 21:22] LABS: AFP Value 40.8 ng/mL (.); Gest Age on Col Date 17.9 weeks (.); Insulin Dep Diabetes No (.); OSBR Risk 1IN 10000 (.); Results Report (.); Test Results *Screen Negative* (.)
== END ==
PROVIDERS: PCP Family Medicine; Referring Provider Obstetrics & Gynecology; Visit Provider Obstetrics & Gynecology
DX: Z34.82 Encounter for supervision of other normal pregnancy, second trimester (principal); Z3A.16 16 weeks gestation of pregnancy
CPT/HCPCS: 36415; 82105

== ENCOUNTER → 2022-07-23 16:39 | Outpatient (CLI) | payer OTHER, SELFPAY ==
[2022-07-23 20:56] LABS: Urine N gonorrhoeae NOT DETECTED
[2022-07-23 21:07] LABS: Urine Chlamydia NOT DETECTED
== END ==
PROVIDERS: PCP Family Medicine; Visit Provider Obstetrics & Gynecology
DX: Z34.82 Encounter for supervision of other normal pregnancy, second trimester (principal); Z3A.19 19 weeks gestation of pregnancy
CPT/HCPCS: 87491; 87591

== ENCOUNTER → 2022-07-30 12:22 | Outpatient (CLI) | payer OTHER, SELFPAY ==
--- NOTE | 2022-07-30 12:22 | DI.US.S_ITS ---
PROCEDURE: US OB >= 14 WEEKS FETUS INDICATIONS: 20 WEEK ANATOMY OUTSIDE/PRIOR DATING DATA: Last menstrual period (LMP): 03/07/2022. LMP-based estimated date of delivery (CONNOR): 12/12/2022. First dating scan (date and location): 04/27/2022. Estimated date of delivery (CONNOR) from first dating scan: 12/13/2022. TECHNIQUE: Real-time scanning was performed of the fetus, with image documentation and biometric measurements. COMPARISON: [facility], , OB >= 14 WEEKS FETUS, 11/28/2019, 11:36. FINDINGS: General: A single living intrauterine gestation is present. Presentation: Variable. Placenta: Placental position is anterior , without previa. Amniotic fluid index: 13.3 cm, normal range is 5-24 cm. Single deepest vertical pocket is 4 cm. heart rate: 153 beats per minute. Maternal cervical canal: 5.6 cm long. Normal lower limit is 2.5 cm. biometrics: Biparietal diameter: 5.0 cm, 21 week 1 day Head circumference: 18.6 cm, 20 week 6 day Abdominal circumference: 15.5 cm, 20 week 4 day Femur length: 3.4 cm, 20 week 5 day Clinically estimated gestational age: 20 week 5 day Composite gestational age from present scan: 20 week 6 day Estimated weight and percentile: 373 g, 45th percentile Anatomic survey: Neuro: Ventricles are non-dilated at less than 10 mm. Cisterna magna is normal at 3-11 mm. Cerebellum is normal in size and morphology. Nuchal skin fold: Normal at less than 6 mm between 14-21 weeks gestational age. Face: Nose and lips, facial profile are normal. Spine: No evidence for spina bifida. Heart: 4-chambered heart is present, with normal ventricular outflow tracts. Diaphragm: Diaphragm is intact. Stomach: Not well visualized Kidneys: No hydronephrosis. Normal is less than 5 mm in 2nd trimester, less than 7 mm in 3rd trimester. Cord: 3-vessel cord has orthotopic insertion. Bladder: Normal in size. Extremities: All 4 extremities identified. IMPRESSION: Single live intrauterine consistent with a 20 week 6 day gestation by current ultrasound. stomach not well visualized. Remainder of the anatomy within normal limits. Approved by: Nabeel Beaver M.D. on 07/30/2022 at 16:33
== END ==
PROVIDERS: PCP Family Medicine; Referring Provider Obstetrics & Gynecology; Visit Provider Obstetrics & Gynecology
DX: Z34.82 Encounter for supervision of other normal pregnancy, second trimester (principal); Z3A.20 20 weeks gestation of pregnancy
CPT/HCPCS: 76811

== ENCOUNTER 2022-08-17 14:48 | Outpatient (CLI) | payer OTHER, SELFPAY | END 2022-08-17 15:15 | disposition home or self-care (01) | LOC: LABOR 15:29 → OB 08-27 11:37 | PROVIDERS: PCP Family Medicine; Referring Provider Obstetrics & Gynecology; Visit Provider Obstetrics & Gynecology | DX: Z03.71 Encounter for suspected problem with amniotic cavity and membrane ruled out (principal); Z3A.23 23 weeks gestation of pregnancy | CPT/HCPCS: 84112; G0378; G0379 ==

== ENCOUNTER → 2022-09-25 09:03 | Outpatient (CLI) | payer OTHER, SELFPAY ==
[2022-09-25 10:55] LABS: Hematocrit 36.2 % (36-46)
[2022-09-25 11:15] LABS: GTT (PREG) 1 Hour PP 50gm Dose 132 mg/dL (76-139)
== END ==
PROVIDERS: PCP Family Medicine; Referring Provider Obstetrics & Gynecology; Visit Provider Obstetrics & Gynecology
DX: Z34.82 Encounter for supervision of other normal pregnancy, second trimester (principal); Z3A.26 26 weeks gestation of pregnancy
CPT/HCPCS: 36415; 82950; 85014; 85018

== ENCOUNTER → 2022-10-22 15:55 | Outpatient (CLI) | payer OTHER, MEDICAID, SELFPAY ==
[2022-10-22 17:06] LABS: Influenza A - CEPHEID Flu A NEGATIVE (NEGATIVE); Influenza B - CEPHEID Flu B NEGATIVE (NEGATIVE)
[2022-10-22 17:07] LABS: COVID-19 CEPHEID 4-PLEX PCR Negative (Negative)
== END ==
PROVIDERS: PCP Family Medicine; Visit Provider Registered Nurse Diabetes Educator
DX: R05.9 Cough, unspecified (principal); R50.9 Fever, unspecified
CPT/HCPCS: 0240U

== ENCOUNTER → 2022-10-26 11:27 | Outpatient (CLI) | payer OTHER, MEDICAID, SELFPAY | PROVIDERS: PCP Family Medicine; Visit Provider Physician Assistant Medical | DX: Z34.83 Encounter for supervision of other normal pregnancy, third trimester (principal) | CPT/HCPCS: 87086 ==

== ENCOUNTER → 2022-10-29 09:41 | Outpatient (CLI) | payer OTHER, MEDICAID, SELFPAY ==
[2022-10-29 10:23] LABS: Add Manual Diff / Slide Review NO; Basophils Absolute Auto 0 /uL (0-100); Basophils Percent Auto 0.2 % (0-2); Eosinophils Absolute Auto 0 /uL (0-450); Eosinophils Percent Auto 0.1 % (2-4); Hemoglobin 12.4 g/dL (12.0-16.0); Lymphocytes Absolute Auto 900 /uL (1100-4500); Lymphocytes Percent Auto 12.5 % (25-40); Mean Corpuscular HGB Conc 33.5 % (30-36); Mean Corpuscular Hemoglobin 27.5 PG (26-34); Mean Corpuscular Volume 82.1 fL (80-100); Monocytes Absolute Auto 400 /uL (0-900); Monocytes Percent Auto 5.3 % (3-14); Neutrophils Absolute Auto 5700 /uL (1500-7000); Neutrophils Percent Auto 81.9 % (50-75); Platelet Count 291 X10^3/uL (150-400); Red Blood Cell Count 4.51 X10^6/uL (4.0-5.2); Red Cell Distribution Width 12.5 % (11.6-14.8)
[2022-10-29 11:05] LABS: Alanine Aminotransferase 17 IU/L (<35); Albumin 3.6 g/dL (3.5-5.0); Albumin Globulin Ratio 1.3 (1.0-2.8); Alkaline Phosphatase 197 U/L (38-126); Aspartate Aminotransferase 21 IU/L (14-36); BUN Creatinine Ratio 11.8 (6-22); Bilirubin Total 0.4 mg/dL (0.2-1.3); Blood Urea Nitrogen 6 mg/dL (7-17); Calcium 8.5 mg/dL (8.4-10.2); Carbon Dioxide 20 mmol/L (22-32); Chloride 104 mmol/L (98-107); Estimated Glomerular Filt Rate > 60 mL/min (>60); Globulin 2.8 g/dL (1.7-4.1); Glucose 88 mg/dL (70-100); HEMOLYSIS < 15 (0-50); Potassium 3.8 mmol/L (3.4-5.1); Sodium 134 mmol/L (137-145); Total Protein 6.4 g/dL (6.3-8.2)
== END ==
PROVIDERS: PCP Family Medicine; Referring Provider Physician Assistant Medical; Visit Provider Physician Assistant Medical
DX: Z34.80 Encounter for supervision of other normal pregnancy, unspecified trimester (principal); Z3A.33 33 weeks gestation of pregnancy
CPT/HCPCS: 36415; 80053; 85025

== ENCOUNTER 2022-11-01 16:56 | Observation (INO) | payer OTHER, MEDICAID, SELFPAY ==
[2022-11-01] MEDS: LACTATED RINGERS 1,000 ML 1000 ML IV ×2 (17:26→18:53)
[2022-11-01] MEDS: ONDANSETRON 4 MG/2 ML INJ IV (17:35)
== END 2022-11-01 19:35 | disposition home or self-care (01) ==
LOC: LABOR 16:57
PROVIDERS: Admitting Provider Obstetrics & Gynecology; PCP Family Medicine; Referring Provider Obstetrics & Gynecology; Visit Provider Obstetrics & Gynecology
DX: O21.9 Vomiting of pregnancy, unspecified (principal); Z3A.34 34 weeks gestation of pregnancy
CPT/HCPCS: 59025; 59050; 96360; G0378; G0379; J2405

== ENCOUNTER 2022-11-09 14:13 | Observation (INO) | payer OTHER, MEDICAID, SELFPAY ==
[2022-11-09 15:19] LABS: Add Manual Diff / Slide Review NO; Basophils Absolute Auto 300 /uL (0-100); Basophils Percent Auto 3.2 % (0-2); Eosinophils Absolute Auto 100 /uL (0-450); Eosinophils Percent Auto 1.1 % (2-4); Hemoglobin 12.5 g/dL (12.0-16.0); Lymphocytes Absolute Auto 1300 /uL (1100-4500); Mean Corpuscular HGB Conc 33.8 % (30-36); Mean Corpuscular Volume 82.8 fL (80-100); Monocytes Absolute Auto 300 /uL (0-900); Monocytes Percent Auto 3.5 % (3-14); Neutrophils Absolute Auto 6300 /uL (1500-7000); Neutrophils Percent Auto 76.2 % (50-75); Platelet Count 209 X10^3/uL (150-400); Red Blood Cell Count 4.47 X10^6/uL (4.0-5.2); Red Cell Distribution Width 13.2 % (11.6-14.8); White Blood Cell Count 8.3 X10^3/uL (4.5-11.0)
[2022-11-09 15:32] LABS: Aspartate Aminotransferase 23 IU/L (14-36); Blood Urea Nitrogen 7 mg/dL (7-17); Estimated Glomerular Filt Rate > 60 mL/min (>60); Uric Acid 5.2 mg/dL (2.5-6.2)
[2022-11-09 15:58] LABS: Protein (Total) Urine Random 14 mg/dL (0-12); Protein Creatinine Ratio Urine 0.58 GRAM/24H
== END 2022-11-09 16:24 | disposition home or self-care (01) ==
LOC: LABOR 14:14
PROVIDERS: Admitting Provider Obstetrics & Gynecology; PCP Family Medicine; Referring Provider Obstetrics & Gynecology; Visit Provider Obstetrics & Gynecology
DX: O13.3 Gestational [pregnancy-induced] hypertension without significant proteinuria, third trimester (principal); Z3A.35 35 weeks gestation of pregnancy
CPT/HCPCS: 36415; 59025; 59050; 82570; 84156; 84450; 84550; 85025; G0378; G0379

== ENCOUNTER 2022-11-16 22:40 | Outpatient (CLI) | payer OTHER, MEDICAID, SELFPAY ==
--- NOTE | 2022-11-16 23:25 | P.TNLD_ITS ---
Visit Information Visit Information Date of evaluation: 11/16/22 Primary OB Provider: Ailyn Butcher On-call OB Provider: Estrella Moctezuma Reason for Evaluation: Yes non-stress test Comments/Additional reasons for admission: 27YO at 36 2/7wks here for evaluation of elevated BP at home. Worried because she had preeclampsia. Consistently has high BPs with her home cuff and normal BPs in clinic, but today had BPs of 150-160/105. +FM. No cramping, VB or LOF. No LAW, vision changes, RUQ pain or increased edema. Vital Signs Vital Signs: Serial BPs: 146/96, 138/89, 132/84, 125/79, 129/71 HR 72bpm, T 36.4C Temporal, SpO2 98% PFSH Medical History 35 weeks gestation of Abnormal uterine bleeding Adenomyosis Allergies Anemia (~2018) Anxiety Asthma Cough Diverticular disease (~2015) Dizziness Dyspareunia (Unknown) Dyspepsia Ectopic Endometriosis Esophageal ring (~2015) Fatigue Fibromyalgia (~2011) Fracture Headache HTN (hypertension) Hypertension affecting in third trimester Interstitial cystitis Liver disease (~2010) Lower urinary tract symptoms (LUTS) Lymphadenopathy Mastitis Ovarian cyst Painful menstrual periods Pancreatitis (~2010) of unknown anatomic location URI (upper respiratory infection) Vaginal delivery Yeast infection of nipple, Surgical History Anesthesia H/O laparoscopy History of colonoscopy (~2019) History of hysteroscopy History of third molar tooth extraction Status post laparoscopy (07/20/16) Status post laparoscopy (10/29/17) Family History Grandfather Pancreatic cancer Mother Hyperlipidemia Hypertension Migraine Father Hypertension Peripheral artery disease Grandfather Peripheral artery disease Social History marital status: number of children: 1 household members: spouse and children lives independently: Yes housing: condominium pets and animals: Yes (1 cat, managing litter box.) education level: master's degree occupational status: employed current occupational exposures/hazards: No 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 special chicho needs: No travel history: over 6 months ago seatbelt use: always water heater temp set < 120 deg: Yes working smoke detector in home: Yes fire extinguisher in home: Yes carbon monox detector in home: Yes firearms in home: No do you feel safe at home: Yes Smoking Status: Never smoker second hand exposure: No alcohol intake: former substance use type: does not use and marijuana during the past year weight has: other well-balanced diet: daily or most days daily servings fruits/ve-4 caffeine: Yes Type(s) of exercise: walking, weight lifting and yoga frequency: 5-6 times per week Review of Systems Review of Systems ROS: Yes All systems reviewed with the patient and are negative except as otherwise documented Exam Vital Signs (past 8 hours): see above Evaluation Evaluation Baseline heart rate: 125 Variability: Moderate (11-25) monitor accelerations: Present Monitor Decelerations: Absent Contraction Frequency (minutes): 0 Comments: CE deferred Diagnosis, Plan/Disposition Final Diagnosis (1) Elevated blood pressure reading without diagnosis of hypertension: Status: Acute Plan/Disposition Plan: Given rapid decrease to normal BP, no labs were sent and patient was given reassurance that her BPs are normal. Follow-up with as previously scheduled. OB Disposition: home
== END 2022-11-16 23:32 | disposition home or self-care (01) ==
LOC: OB 11-18 09:09
PROVIDERS: PCP Family Medicine; Referring Provider Obstetrics & Gynecology; Visit Provider Obstetrics & Gynecology
DX: O26.893 Other specified pregnancy related conditions, third trimester (principal); R03.0 Elevated blood-pressure reading, without diagnosis of hypertension; Z3A.36 36 weeks gestation of pregnancy
CPT/HCPCS: 59025; G0378; G0379

== ENCOUNTER → 2022-11-19 15:10 | Outpatient (CLI) | payer OTHER, MEDICAID, SELFPAY ==
[2022-11-20 13:47] LABS: Strep Grp B PCR NEG for Grp B Strep
== END ==
PROVIDERS: PCP Family Medicine; Visit Provider Obstetrics & Gynecology
DX: Z34.83 Encounter for supervision of other normal pregnancy, third trimester (principal); Z3A.36 36 weeks gestation of pregnancy
CPT/HCPCS: 87653

== ENCOUNTER 2022-11-24 13:28 | Observation (INO) | payer OTHER, MEDICAID, SELFPAY ==
[2022-11-24 15:04] LABS: Alanine Aminotransferase 20 IU/L (<35); Albumin 3.8 g/dL (3.5-5.0); Albumin Globulin Ratio 1.2 (1.0-2.8); Alkaline Phosphatase 233 U/L (38-126); Aspartate Aminotransferase 27 IU/L (14-36); Bilirubin Total 0.2 mg/dL (0.2-1.3); Blood Urea Nitrogen 11 mg/dL (7-17); Calcium 9.1 mg/dL (8.4-10.2); Carbon Dioxide 20 mmol/L (22-32); Chloride 104 mmol/L (98-107); Estimated Glomerular Filt Rate > 60 mL/min (>60); Globulin 3.1 g/dL (1.7-4.1); Glucose 82 mg/dL (70-100); HEMOLYSIS < 15 (0-50); Potassium 4.2 mmol/L (3.4-5.1); Sodium 133 mmol/L (137-145); Total Protein 6.9 g/dL (6.3-8.2)
[2022-11-24 15:16] LABS: Uric Acid 6.3 mg/dL (2.5-6.2)
[2022-11-24 15:25] LABS: Creatinine Urine Random 53.5 mg/dL; Protein (Total) Urine Random 7 mg/dL (0-12); Protein Creatinine Ratio Urine 0.13 GRAM/24H
[2022-11-24 16:49] VITALS: BP 139/90; PULSE 71
[2022-11-24] MEDS: LABETALOL 100 MG TABLET PO (16:49)
[2022-11-24 17:04] LABS: Add Manual Diff / Slide Review NO; Basophils Absolute Auto 0 /uL (0-100); Basophils Percent Auto 0.7 % (0-2); Eosinophils Absolute Auto 0 /uL (0-450); Eosinophils Percent Auto 0.3 % (2-4); Hematocrit 39.1 % (36-46); Hemoglobin 12.8 g/dL (12.0-16.0); Lymphocytes Absolute Auto 1800 /uL (1100-4500); Lymphocytes Percent Auto 27.2 % (25-40); Mean Corpuscular HGB Conc 32.7 % (30-36); Mean Corpuscular Hemoglobin 27.7 PG (26-34); Mean Corpuscular Volume 84.7 fL (80-100); Monocytes Absolute Auto 300 /uL (0-900); Monocytes Percent Auto 4.1 % (3-14); Neutrophils Absolute Auto 4600 /uL (1500-7000); Neutrophils Percent Auto 67.7 % (50-75); Platelet Count 205 X10^3/uL (150-400); Red Blood Cell Count 4.61 X10^6/uL (4.0-5.2); Red Cell Distribution Width 14.6 % (11.6-14.8); White Blood Cell Count 6.7 X10^3/uL (4.5-11.0)
== END 2022-11-24 17:23 | disposition home or self-care (01) ==
PROVIDERS: Admitting Provider Obstetrics & Gynecology; PCP Family Medicine; Referring Provider Obstetrics & Gynecology; Visit Provider Obstetrics & Gynecology
DX: Z03.71 Encounter for suspected problem with amniotic cavity and membrane ruled out (principal); O13.3 Gestational [pregnancy-induced] hypertension without significant proteinuria, third trimester; Z3A.37 37 weeks gestation of pregnancy
CPT/HCPCS: 36415; 59025; 59050; 80053; 82570; 84112; 84156; 84550; 85025; G0378; G0379

== ENCOUNTER 2022-11-30 07:13 | Inpatient (IN) | payer OTHER, MEDICAID, SELFPAY ==
--- NOTE | 2022-11-30 07:32 | P.HPOB_ITS ---
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 Estimated Delivery Date Method Current WG Current Estimate 12/12/22 LMP (Certain) 38w 2d Other Estimates 12/13/22 Ultrasound #1 38w 1d 12/11/22 Ultrasound #2 38w 3d : 3 Para: 1 care: good care, initiated at week # (10), number of visits (10) and pounds weight gain (28) Dating criteria OB: LMP confirmed by 1st trimester US Obstetrical complications: gestational hypertension Medical complications OB: none Indications Indication for induction OB: gestational HTN/pre-eclampsia Preadmission Labs Last OB Lab Results: Blood Type O Positive 11/30/22 07:29 Antibody Screen Negative 11/30/22 07:29 Hematocrit 36.9 % (36-46) 11/30/22 07:29 Hemoglobin 12.2 g/dL (12.0-16.0) 11/30/22 07:29 Hepatitis B Surface Antigen Negative s/c (NEGATIVE) 05/22/22 17 :02 Hepatitis C Antibody Negative s/c (NEGATIVE) 05/22/22 17:02 Rubella Antibody 70.0 IU/mL (>15) 05/22/22 17:02 Varicella-Zoster IgG Antibody <135 index (Immune >165) L 17:02 Glucose 1 Hour 132 mg/dL (76-139) 09/25/22 10:34 Group B Streptococcus (PCR) Neg for grp b strep 11/19/22 15:10 -: Chlamydia screen: negative, Gonorrhea screen: negative and Urine: negative -: PAP smear: Normal (2019) Genetic Screens: Cell-free DNA: Normal and Alpha-fetoprotein: Normal External Labs -: Urine: negative Prior (ies) Past Pregnancies Del. Date GA/Weeks Labor Lgth Wt Sex Route Outcome Anesthesia Place Delv Breastfeed Preg Comp Name 12/15/19 37 5 lb 10 oz Female vaginal live - full term e pidural IH 18 months pre-eclampsia Sandra 10/27/21 7 ectopic Delivery Date: 12/15/19 Last Updated by: Zayra Simmons RN postpartum depression, pelvic prolapse, retained POC requiring D&C Delivery Date: 12/06/21 Last Updated by: Zayra Simmons RN methotrexate Evaluation Evaluation Baseline heart rate: 140 Variability: Moderate (11-25) monitor accelerations: Present Monitor Decelerations: Absent Contraction Frequency (minutes): 8 Uterine Contraction Intensity: Mild Status: Category l PFSH Medical History 35 weeks gestation of Abnormal uterine bleeding Adenomyosis Allergies Anemia (~2018) Anxiety Asthma Cough Diverticular disease (~2015) Dizziness Dyspareunia (Unknown) Dyspepsia Ectopic Endometriosis Esophageal ring (~2015) Fatigue Fibromyalgia (~2011) Fracture Headache HTN (hypertension) Hypertension affecting in third trimester Interstitial cystitis Liver disease (~2010) Lower urinary tract symptoms (LUTS) Lymphadenopathy Mastitis Ovarian cyst Painful menstrual periods Pancreatitis (~2010) of unknown anatomic location URI (upper respiratory infection) Vaginal delivery Yeast infection of nipple, Surgical History Anesthesia H/O laparoscopy History of colonoscopy (~2019) History of hysteroscopy History of third molar tooth extraction Status post laparoscopy (07/20/16) Status post laparoscopy (10/29/17) Family History Grandfather Pancreatic cancer Mother Hyperlipidemia Hypertension Migraine Father Hypertension Peripheral artery disease Grandfather Peripheral artery disease Social History marital status: number of children: 1 household members: spouse and children lives independently: Yes housing: condominium pets and animals: Yes (1 cat, managing litter box.) education level: master's degree occupational status: employed current occupational exposures/hazards: No 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 special chicho needs: No travel history: over 6 months ago seatbelt use: always water heater temp set < 120 deg: Yes working smoke detector in home: Yes fire extinguisher in home: Yes carbon monox detector in home: Yes firearms in home: No do you feel safe at home: Yes Smoking Status: Never smoker second hand exposure: No alcohol intake: former substance use type: does not use and marijuana during the past year weight has: other well-balanced diet: daily or most days daily servings fruits/ve-4 caffeine: Yes Type(s) of exercise: walking, weight lifting and yoga frequency: 5-6 times per week Meds Home Medications and Allergies Home Medications Medication Instructions Recorded Confirmed Type Saccharomyces boulardii 250 mg 500 mg PO BID 05/06/22 11/26/22 History capsule (Digest Probiotic (S.boulardii)) prenat.vits,cammie,els-awsr-crmzn 1 tab PO DAILY 05/06/22 11/26/22 History linaclotide 145 mcg capsule 290 mcg PO DAILY 05/15/22 11/26/22 History (Linzess) metoclopramide HCl 10 mg tablet 10 mg PO Q6H PRN nausea and 05/22/22 11/26/22 Rx (Reglan) vomiting #20 tabs ondansetron 4 mg disintegrating 4 mg PO Q6H PRN nausea and 10/06/22 11/26/22 Rx tablet vomiting #30 tabs labetalol 100 mg tablet 100 mg PO BID #20 tabs 11/24/22 11/26/22 Rx Allergies Allergy/AdvReac Type Severity Reaction Status Date / Time grass pollen AdvReac Mild Hives Verified 11/26/22 13:50 artificial pecan Allergy Severe Anaphylaxis Uncoded 11/26/22 13:50 metals AdvReac Intermediate Rash Uncoded 11/26/22 13:50 OB Exam Narrative Exam Narrative: Generally: Patient walking around in room, no acute distress Lungs: Clear to auscultation bilaterally Cardiovascular: Regular rate and rhythm Fundal height: 38 cm Estimated weight: 7 lb Extremities: Trace edema Objective Labs Result Diagrams: 11/30/22 07:29 Assessment and Plan Assessment and Plan Assessment and Plan narrative: Assessment: 27-year-old 3 para 1 at 38+2 weeks gestatiion with gestational hy pertension Induction of labor Plan: Pitocin induction of labor BP management Epidural prn AROM when able Time Spent with Patient Total time spent with greater than 50% in coordination of care (as documented) at patient's floor/unit and/or counseling patient:: less than 15 minutes
[2022-11-30 08:31] LABS: Add Manual Diff / Slide Review NO; Basophils Absolute Auto 100 /uL (0-100); Basophils Percent Auto 1.4 % (0-2); Eosinophils Absolute Auto 0 /uL (0-450); Eosinophils Percent Auto 0.5 % (2-4); Hematocrit 36.9 % (36-46); Hemoglobin 12.2 g/dL (12.0-16.0); Lymphocytes Absolute Auto 1900 /uL (1100-4500); Lymphocytes Percent Auto 28.4 % (25-40); Mean Corpuscular HGB Conc 33.1 % (30-36); Mean Corpuscular Hemoglobin 28.1 PG (26-34); Mean Corpuscular Volume 84.8 fL (80-100); Monocytes Absolute Auto 400 /uL (0-900); Monocytes Percent Auto 6.7 % (3-14); Neutrophils Absolute Auto 4200 /uL (1500-7000); Platelet Count 208 X10^3/uL (150-400); Red Blood Cell Count 4.35 X10^6/uL (4.0-5.2); Red Cell Distribution Width 15.1 % (11.6-14.8); White Blood Cell Count 6.6 X10^3/uL (4.5-11.0)
[2022-11-30 08:47] LABS: COVID19 -Nasal RAPID Negative (Negative)
[2022-11-30 08:52] VITALS: BP 139/100; PULSE 73
[2022-11-30] MEDS: LABETALOL 100 MG TABLET PO ×2 (08:52→21:09)
[2022-11-30] MEDS: OXYTOCIN PREMIX 30 UNIT/500 ML PLAST..BAG IV (08:53)
[2022-11-30 09:14] VITALS: BP 139/100
--- NOTE | 2022-11-30 11:03 | PM.OBPNLAB ---
Date/Time Date Patient Seen: 11/30/22 Time Patient Seen: 10:45 Pain Control Pain control: tolerating well Pelvic Exam Dilation (cm): 4 Effacement (%): 85 station: -1 Amniotic membrane status: Intact Contractions Contractions on admission: irregular Monitor mode: External Pitocin rate (mU/min): 5 Contraction frequency (min): 3 Contraction duration (min): 1 Contraction intensity: Mild Status status: Category l Heart Rate Baseline: 135 Monitor Accelerations: Present Monitor Decelerations: Absent Monitor Variability: Moderate Assessment and Plan Assessment: induction ongoing Comments: AROM with copious clear amniotic fluid Epidural Expectant management to
--- NOTE | 2022-11-30 12:40 | P.PCNOB_ITS ---
Events: Labor Induction Labor & Delivery Delivery date: 11/30/22 Intrapartal Events: Deceleration Cervical ripening method: none Induction method: per pitocin protocol Delivery augmentation: rupture of membranes Delivery monitor: external FHT and external uterine Route of delivery: Episiotomy description: None L&D Laceration Description: Superficial (clitoral) Quantitative Blood Loss: 100 Anesthesia Type: Epidural Complications: None Narrative: Patient complete and pushed for 6 minutes. At 12:16 p.m., a live male infant delivered spontaneously in the ZOHREH presentation, over an intact perineum. A loose nuchal cord x1 was reduced on the perineum. The remainder of the body delivered without difficulty and was placed on mom's abdomen. The cord was double clamped and cut after it stopped pulsing. Pitocin was given in the IV fluids. Cord bloods were obtained. The placenta delivered intact with a three- vessel cord at 12:26 p.m.. The placenta was filled with calcifications. The fundus was massaged to firm. There was a small superficial laceration near the clitoris which was not repaired. Pressure was held for hemostasis. Apgars 9 at 1 minute and 9 at 5 minutes. Weight 6 lb 7 oz. QBL 100 cc. . Epidural analgesia. Mom and infant stable to recovery. [place] Baby 1: Infant gender: Male Presentation: vertex Position: Left Occiput Anterior Placenta delivery description: Spontaneous Cord Vessel Description: 3 Vessels, Nuchal Cord (x1), Loose and Reduced score (1 min): 9 score (5 min): 9 weight: 6 lb 7 oz Plan for aftercare: Routine care
[2022-11-30 15:00] VITALS: BP 141/68; PULSE 78
[2022-11-30 21:09] VITALS: BP 144/72; PULSE 84
[2022-11-30 23:54] VITALS: BP 127/80; PULSE 82
[2022-11-30] MEDS: IBUPROFEN 600 MG TABLET PO (23:54)
[2022-12-01] MEDS: ACETAMINOPHEN 325 MG TABLET 650 MG PO ×2 (00:59→08:26)
[2022-12-01 06:38] LABS: Hematocrit 33.5 % (36-46); Hemoglobin 11.1 g/dL (12.0-16.0)
[2022-12-01 08:25] VITALS: BP 141/68; PULSE 78
[2022-12-01] MEDS: DOCUSATE 100 MG CAPSULE PO (08:25)
[2022-12-01] MEDS: LABETALOL 100 MG TABLET PO (08:25)
[2022-12-01] MEDS: PRENATAL VIT,CALC/IRON/FOLIC 1 TABLET 1 TAB PO (08:25)
[2022-12-01] MEDS: IBUPROFEN 600 MG TABLET PO (08:26)
[2022-12-01 10:44] VITALS: BP 141/64; PULSE 78; RESP 16; TEMP 36.7
== END 2022-12-01 14:41 | disposition home or self-care (01) | DRG 560 ==
PROVIDERS: Admitting Provider Obstetrics & Gynecology; PCP Family Medicine; Referring Provider Obstetrics & Gynecology; Visit Provider Obstetrics & Gynecology
DX: O13.4 Gestational [pregnancy-induced] hypertension without significant proteinuria, complicating childbirth (principal); Z3A.38 38 weeks gestation of pregnancy; Z37.0 Single live birth; O69.81X0 Labor and delivery complicated by cord around neck, without compression, not applicable or unspecified; O76 Abnormality in fetal heart rate and rhythm complicating labor and delivery; Z20.822 Contact with and (suspected) exposure to COVID-19
CPT/HCPCS: 36415; 59050; 59409; 85014; 85018; 85025; 86850; 86900; 86901; 87635; C9803; G0379; J2590

== ENCOUNTER → 2023-02-17 07:51 | Outpatient (CLI) | payer OTHER, MEDICAID, SELFPAY ==
--- NOTE | 2023-02-17 07:52 | DI.US.S_ITS ---
PROCEDURE: US PELVIC COMPLETE INDICATIONS: 11 WEEKS P.P. W/INTERMITTENT BLEEDING/PAIN. R/O RPOC. H/O RPOC W/PRIOR PREGNANY. H/O CALCIFIED PLACENTA W/RECENT DELIVERY. H/O ENDOMETRIOSIS/ADENOMYOSIS/PCOS. TECHNIQUE: Real-time scanning was performed of the pelvic organs, with image documentation. Additional endovaginal scanning was necessary due to incomplete visualization of the adnexal and endometrial structures by transabdominal scanning. COMPARISON: [facility], US, US PELVIC COMPLETE, 04/14/2022, 10:20. FINDINGS: Uterus: Uterus is retroverted and normal in size at 6.6 x 5.3 x 4.0 cm. The myometrium is homogeneous. No discrete uterine fibroid is seen. The endometrium measures 4.4 mm combined thickness. Trace amount of anechoic fluid is seen within endometrium. 2 small areas of hypoechogenicity are seen within endometrium near fundus measures 7 x 5 x 3 mm and 4 x 1 mm in size and show internal vascularity. Ovaries: The right ovary measures 4.5 x 1.9 x 1.5 cm, with a calculated ovarian volume of 6.7 cc. The left ovary measures 4.6 x 1.7 x 1.5 cm, with a calculated ovarian volume of 6.1 cc. The ovaries have a normal sonographic appearance. Greater than 12 follicles can be seen in each ovary. No adnexal masses are seen. Normal arterial and venous flow is seen in bilateral ovaries on color Doppler images. Other: No pathologic free abdominal or pelvic fluid. IMPRESSION: 1. 2 sub centimeter areas of hyperechogenicity with internal vascularity seen in endometrium which could represent retained products. Trace amount of fluid within endometrium is also seen. 2. No evidence of ovarian torsion. No solid appearing ovarian lesion. o 3. Greater than 12 follicles are seen in each ovary. Findings meet the [place] definition of polycystic ovaries. In the absence of ovulatory dysfunction or clinically/biochemically diagnosed hyperandrogenism, findings are non specific and do not indicate the presence of polycystic ovarian syndrome. We strive to produce accurate, complete, and clear reports of imaging services. To assist us in improving patient care, this report was composed using standard report templates and voice recognition software. Therefore, it may contain abnormal punctuation, insertions and/or omissions. Occasional wrong-word or sound-alike substitutions may occur. Though we review the report and make efforts to correct it, we do recommend that the report be read carefully in proper context to recognize any text inaccuracies. Dictated by: Arun Hicks M.D. on 02/17/2023 at 8:36 Approved by: Arun Hicks M.D. on 02/17/2023 at 8:49
== END ==
PROVIDERS: PCP Family Medicine; Referring Provider Specialist; Visit Provider Specialist
DX: O73.1 Retained portions of placenta and membranes, without hemorrhage (principal); E28.2 Polycystic ovarian syndrome
CPT/HCPCS: 76830; 76856; 93975

== ENCOUNTER 2023-02-22 09:36 | Day surgery (SDC) | payer OTHER, MEDICAID, SELFPAY ==
[2023-02-22] VITALS (7 sets, daily range): BP systolic 116–134; BP diastolic 65–90; PULSE 81–99; RESP 11–21; TEMP 36.3–36.7; O2SAT 95–100; BMI 30.1
--- NOTE | 2023-02-22 | PATH_ITS ---
[facility] Accession Number: [id number] No. of containers..01 Tissue . 01 Material submitted: . endometrium - ENDOMETRIAL CURETTINGS . 01 Diagnosis: A. Endometrium, Curettage: Fragments of proliferative endometrium with shedding/breakdown, focal hyalinization, and scattered endometrial stromal plasma cells; see comment. No evidence of endometrioid intraepithelial neoplasia or malignancy. . . COMMENT: Scattered endometrial stromal plasma cells are present. In a background of shedding/breakdown, the clinical significance of such finding is not clear, however, it raises the possibility of background chronic endometritis. Clinical correlation is necessary. MRV 02/25/2023 1252 Local . 01 Electronically signed: . Angy Walker MD, Pathologist NPI- [id number] . 01 Gross description: . ENDOMETRIAL CURETTINGS: Received in formalin are minute fragments of mucoid and hemorrhagic material measuring 2.5 x 1.0 x 0.1 cm in aggregate. Submitted in toto in 1 cassette. /CPE 02/24/2023 0645 Local . 01 Pathologist provided ICD-10: N93.9 . 01 CPT . 628962 Specimen Comment: A courtesy copy of this report has been sent to [phone] Performed at: 01 [facility] [address] [place] [address] [address] [facility], [place], [place] [id number] MD Shmuel Alegria MD Phone: [phone]
[2023-02-22] MEDS: LACTATED RINGERS 1,000 ML 100 ML IV ×2 (10:11→11:27)
--- NOTE | 2023-02-22 10:57 | P.HPOB_ITS ---
History of Present Illness History of Present Illness Reason for admission: vaginal bleeding (Three months ) Narrative: Yumiko Madrigal is a 27 year old female 3 para 2 who presents for a D&C hysteroscopy for possible retained placenta. She has had intermittent bleeding for 3 months . [facility] Medical History (Updated 12/30/22 @ 17:12 by Mela Camara DO) 35 weeks gestation of Abnormal uterine bleeding Adenomyosis Allergies Anemia (~2018) Anxiety Asthma Cough Diverticular disease (~2015) Dizziness Dyspareunia (Unknown) Dyspepsia Ectopic Endometriosis Esophageal ring (~2015) Fatigue Fibromyalgia (~2011) Fracture Headache HTN (hypertension) Hypertension affecting in third trimester Interstitial cystitis Liver disease (~2010) Lower urinary tract symptoms (LUTS) Lymphadenopathy Mastitis Ovarian cyst Painful menstrual periods Pancreatitis (~2010) of unknown anatomic location URI (upper respiratory infection) Vaginal delivery Yeast infection of nipple, Surgical History (Updated 02/18/23 @ 14:30 by Marcy Abrams RN) Anesthesia H/O laparoscopy History of colonoscopy (~2019) History of hysteroscopy (05/06/20) History of third molar tooth extraction Status post laparoscopy (07/20/16) Status post laparoscopy (10/29/17) Family History Grandfather Pancreatic cancer Mother Hyperlipidemia Hypertension Migraine Father Hypertension Peripheral artery disease Grandfather Peripheral artery disease Social History marital status: number of children: 1 household members: spouse and children lives independently: Yes housing: condominium pets and animals: Yes (1 cat, managing litter box.) education level: master's degree occupational status: employed current occupational exposures/hazards: No 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 special chicho needs: No travel history: over 6 months ago seatbelt use: always water heater temp set < 120 deg: Yes working smoke detector in home: Yes fire extinguisher in home: Yes carbon monox detector in home: Yes firearms in home: No do you feel safe at home: Yes Smoking Status: Never smoker second hand exposure: No alcohol intake: former substance use type: does not use and marijuana during the past year weight has: other well-balanced diet: daily or most days daily servings fruits/ve-4 caffeine: Yes Type(s) of exercise: walking, weight lifting and yoga frequency: 5-6 times per week Meds Home Medications and Allergies Home Medications Medication Instructions Recorded Confirmed Type Saccharomyces boulardii 250 mg 500 mg PO BID 05/06/22 02/22/23 History capsule (Digest Probiotic (S.boulardii)) prenat.vits,cammie,bca-uutk-qtfvu 1 tab PO DAILY 05/06/22 02/22/23 History linaclotide 145 mcg capsule 290 mcg PO DAILY 05/15/22 02/22/23 History (Linzess) Allergies Allergy/AdvReac Type Severity Reaction Status Date / Time grass pollen AdvReac Mild Hives Verified 02/22/23 09:56 artificial pecan Allergy Severe Anaphylaxis Uncoded 01/11/23 13:55 metals AdvReac Intermediate Rash Uncoded 01/11/23 13:55 Exam Vital Signs (past 8 hours): - 02/22/23 10:05 Temperature 97.3 F L Pulse Rate 90 Respiratory Rate 16 Blood Pressure 130/85 Pulse Oximetry 97 Oxygen Delivery Method Room Air Oxygen Flow Rate 0 Oxygen Delivery Method Room Air Oxygen Flow Rate 0 Narrative Exam Narrative: HEENT: No thyromegaly, no anterior cervical or supraclavicular lymphadenopathy. Lungs:Clear to auscultation bilaterally, no wheezes. Cardiovascular: Regular rate and rhythm, no murmurs, rubs, or gallops. Abdomen: No scars. No hepatosplenomegaly. No masses palpable. External genitalia: Normal Vagina: Normal Cervix: Normal, para Bimanual exam: 7 Week size uterus. Mobile. Assessment & Plan Assessment & Plan narrative: Assessment: 27-year-old 3 para 2 with intermittent bleeding for 3 months Ultrasound shows possible retained piece of placenta Plan: D&C hysteroscopy with possible removal of retained piece of placenta The risks, benefits, and alternatives to the procedure were explained to the patient. The risks including bleeding, infection, and uterine perforation. She understands these risks and agrees to proceed. A full par Q was held and consent form was signed. Time Spent With Patient Time with patient: less than 30 minutes
--- NOTE | 2023-02-22 10:59 | PM.PREOP ---
Pre-operative Note COVID-19 Criteria for continued procedure: Non-surgical alternatives not available or appropriate per current SOC Interval Note History & Physical reviewed/Exam performed by Physician: Yes Changes to H&P: No H&P completed within 30 days and has changed as indicated here:: 02/22/23
--- NOTE | 2023-02-22 11:04 | SUR.OPER ---
Lithotomy on padded OR bed, head on pillow, arms secured on padded arm boards at <90 degrees abduction. Legs secured in padded yellow fins stirrups. Patient voided at 1040 prior to entering OR.
--- NOTE | 2023-02-22 12:01 | PM.GYNOP.1 ---
Operative Date/Time/Diagnoses Date of procedure: 02/22/23 Time of procedure: 12:01 Pre-op diagnosis: Intermittent continued bleeding 3 months Possible retained placenta on ultrasound Post-op diagnosis: same Procedure & Clinicians Procedure: Procedures Operation Date: 02/22/23 11:00 Actual Procedure Side Surgeon p Hysteroscopy D&C Ailyn Butcher MD Indications: Persistent, intermittent bleeding 3 months Possible retained placenta on ultrasound Surgeon: Ailyn Butcher Anesthesia Type: General (LMA) Operative Notes Findings: 7 week size slightly retroverted uterus Both fallopian tube ostia observed Shaggy endometrium No definitive retained placenta Closure Type: not applicable Specimen(s): endometrial curettings Estimated blood loss (mL): 5 Blood products transfused: none Procedure in detail: After informed consent was obtained, the patient was taken to the operating room where she was placed in the dorsal supine position. After adequate LMA general anesthesia was achieved, she was placed in the dorsal lithotomy position, and prepped and draped in the usual sterile fashion. A time-out was performed. A bivalve speculum was placed into the vagina and the anterior lip of the cervix was grasped with a single-tooth tenaculum. The cervical os was sequentially dilated to the # 9 Hegar dilator. The hysteroscope passed easily into the endometrial cavity. Both fallopian tube ostia were observed. There was a ?shaggy endometrium?, but no definitive retained pieces of placenta observed. The hysteroscope was removed from the uterus. Sharp curettage was performed yielding a moderate amount of endometrial curettings. The single-tooth tenaculum was removed from the anterior lip of the cervix. The bivalve speculum was removed from the vagina. Sponge, lap, and instrument counts were correct x2. The patient tolerated the procedure well, and was taken to PACU in stable condition. Complications: none Post-operative Condition: stable Disposition: PACU Plan for aftercare: Home after recovery
[2023-02-22] MEDS: ONDANSETRON 4 MG/2 ML INJ IV ×2 (12:08→12:21)
== END 2023-02-22 13:01 | disposition home or self-care (01) ==
PROVIDERS: PCP Family Medicine; Referring Provider Obstetrics & Gynecology; Visit Provider Obstetrics & Gynecology
PROC: 0UDB8ZZ Extraction of Endometrium, Via Natural or Artificial Opening Endoscopic (ICD-10-PCS; CPT 58558; principal; 2023-02-22 11:00)
DX: N93.8 Other specified abnormal uterine and vaginal bleeding (principal)
CPT/HCPCS: 58558; J1100; J1885; J2405; J2704; J3010

== ENCOUNTER 2023-05-23 09:20 | Emergency (ER) | payer OTHER, MEDICAID, SELFPAY ==
[2023-05-23 09:24] VITALS: BP 154/92; PULSE 104; RESP 16; TEMP 36.6; O2SAT 95; BMI 31.8
[2023-05-23] MEDS: MAG HYDROX/ALUM/SIMETH 30 ML UDC PO (10:05)
--- NOTE | 2023-05-23 10:26 | DI.RAD.S_ITS ---
PROCEDURE: XR CHEST 2V INDICATIONS: chest discomfort TECHNIQUE: 2 views of the chest were acquired. COMPARISON: [facility], CR, XR CHEST 2V, 01/30/2019, 19:19. FINDINGS: Surgical changes and devices: None. Lungs and pleura: Lungs are clear. No pleural effusions or pneumothorax. Mediastinum: Mediastinal contours are normal. Heart size is normal. Bones and chest wall: No suspicious bony abnormalities. Soft tissues appear unremarkable. IMPRESSION: No acute cardiopulmonary abnormality. Dictated by: Ben Gaspar M.D. on 05/23/2023 at 10:52 Approved by: Ben Gaspar M.D. on 05/23/2023 at 10:52
--- NOTE | 2023-05-23 10:56 | ED.NAVMDI ---
HPI - Nausea/Vomiting/Diarrhea <FRANCE Norman - Last Filed: 05/23/23 12:12> General Chief complaint: Nausea/Vomiting/Diarrhea Stated complaint: Throat, abd & chest pain Time Seen by Provider: 05/23/23 09:37 History of Present Illness HPI Narrative: 27-year-old female, never smoker, presents to the emergency department with complaints of sternal cramping since 6:00 a.m. this morning. Patient states that she woke up about 2:00 a.m. with heartburn, took some medication, and went back to bed. Patient denies eating or drinking anything out of the ordinary before bedtime and does not have a history of GERD, other than during her . Patient does state that she had a esophageal tear from vomiting secondary to morning sickness with her that has since fully healed. Patient states that when she woke up around 6:00 a.m. she started experiencing sternal/esophageal cramping every time she drank. Patient endorses the ability to swallow without difficulty or nausea, but experiences 5-15 seconds discomfort immediately following swallowing with lingering soreness. Patient denies any cardiac history. Related Data Home Medications Medication Instructions Recorded Confirmed Saccharomyces boulardii 250 mg 500 mg PO BID 05/06/22 02/22/23 capsule (Digest Probiotic (S.boulardii)) prenat.vits,cammie,hft-ihyw-rfdex 1 tab PO DAILY 05/06/22 02/22/23 linaclotide 145 mcg capsule 290 mcg PO DAILY 05/15/22 02/22/23 (Linzess) Previous Rx's Medication Instructions Recorded cephalexin 500 mg capsule 500 mg PO TID #21 caps 03/16/23 oxycodone 5 mg tablet 5 mg PO BID PRN pain #10 tabs 03/25/23 amoxicillin 875 mg-potassium 1 tab PO BID #14 tabs 04/02/23 clavulanate 125 mg tablet sucralfate 1 gram tablet 1 g PO QID #60 tabs 05/23/23 Allergies Allergy/AdvReac Type Severity Reaction Status Date / Time grass pollen AdvReac Mild Hives Verified 02/22/23 09:56 artificial pecan Allergy Severe Anaphylaxis Uncoded 01/11/23 13:55 metals AdvReac Intermediate Rash Uncoded 01/11/23 13:55 Review of Systems <FRANCE Norman - Last Filed: 05/23/23 12:12> Review of Systems Narrative: Narrative: See HPI. GENERAL: Denies chills, fatigue, fever, sweats. HEENT: Denies sinus pain, ear pain, sore throat, difficulty swallowing, dizziness. RESPIRATORY: Denies dyspnea, cough, wheezing, sputum. CARDIOVASCULAR: Denies chest pain, palpitations, edema. GASTROINTESTINAL: Denies nausea, vomiting, abdominal pain, diarrhea, constipation. Endorses sternal/esophageal discomfort. : Denies dysuria, frequency, incontinence, hematuria, urinary retention, flank pain. MSK: Denies weakness, joint pain, or bony pain. SKIN: Denies rash, skin lesions, or pruritis. NEUROLOGIC: Denies weakness, dizziness, headache, numbness, confusion. PSYCHIATRIC: No concerning psychosocial issues. Patient History <FRANCE Norman - Last Filed: 05/23/23 12:12> Medical History 35 weeks gestation of Abnormal uterine bleeding Adenomyosis Allergies Anemia (~2018) Anxiety Asthma Cough Diverticular disease (~2015) Dizziness Dyspareunia (Unknown) Dyspepsia Ectopic Endometriosis Esophageal ring (~2015) Fatigue Fibromyalgia (~2011) Fracture Headache HTN (hypertension) Hypertension affecting in third trimester Interstitial cystitis Liver disease (~2010) Lower urinary tract symptoms (LUTS) Lymphadenopathy Mastitis Ovarian cyst Painful menstrual periods Pancreatitis (~2010) of unknown anatomic location URI (upper respiratory infection) Vaginal delivery Yeast infection of nipple, Surgical History Anesthesia H/O laparoscopy History of colonoscopy (~2019) History of hysteroscopy (05/06/20) History of third molar tooth extraction Status post laparoscopy (07/20/16) Status post laparoscopy (10/29/17) Family History Grandfather Pancreatic cancer Mother Hyperlipidemia Hypertension Migraine Father Hypertension Peripheral artery disease Grandfather Peripheral artery disease Social History marital status: number of children: 1 household members: spouse and children lives independently: Yes housing: condominium pets and animals: Yes (1 cat, managing litter box.) education level: master's degree occupational status: employed current occupational exposures/hazards: No 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 special chicho needs: No travel history: over 6 months ago seatbelt use: always water heater temp set < 120 deg: Yes working smoke detector in home: Yes fire extinguisher in home: Yes carbon monox detector in home: Yes firearms in home: No do you feel safe at home: Yes Smoking Status: Never smoker second hand exposure: No alcohol intake: former substance use type: does not use and marijuana during the past year weight has: other well-balanced diet: daily or most days daily servings fruits/ve-4 caffeine: Yes Type(s) of exercise: walking, weight lifting and yoga frequency: 5-6 times per week Smoking Status: Never smoker alcohol intake frequency: a few times a week Substance Use Type: does not use Exam <FRANCE Norman - Last Filed: 05/23/23 12:12> Narrative Exam Narrative: Exam Narrative: GENERAL: This is a well-nourished, well-developed patient, in no acute distress. HEAD: Atraumatic. Normocephalic. EYES: Pupils equal round and reactive. Extraocular motions intact. No scleral icterus, injection or drainage. ENT: Nose without bleeding, purulent drainage. Throat without erythema, tonsillar hypertrophy or exudate. Uvula midline. Airway patent. TMs and canals clear. No sinus tenderness. NECK: Trachea midline. No JVD or lymphadenopathy. Nontender. CARDIOVASCULAR: Regular rate and rhythm without murmurs, peripheral pulses intact, cap refill <2 sec. RESPIRATORY: Breath sounds equal and clear bilaterally. No wheezes, rales, or rhonchi. No cough. No increased respiratory effort. No accessory muscle use. GASTROINTESTINAL: Abdomen soft, non-tender, nondistended without guarding or rebound. No suprapubic pain. MSK: Moves all extremities. Normal range of motion, no clubbing or edema. Neurovascularly intact. NEURO: A&O x 3. SKIN: Warm, dry, no rashes or lesions noted. Initial Vital Signs Initial Vital Signs: Vital Signs Temperature 97.8 F 05/23/23 09:24 Pulse Rate 104 H 05/23/23 09:24 Respiratory Rate 16 05/23/23 09:24 Blood Pressure 154/92 H 05/23/23 09:24 Pulse Oximetry 95 05/23/23 09:24 Oxygen Delivery Method Room Air 05/23/23 09:24 Reviewed <Paxton Santana DO - Last Filed: 05/23/23 13:04> Initial Vital Signs Initial Vital Signs: Vital Signs Temperature 97.8 F 05/23/23 09:24 Pulse Rate 104 H 05/23/23 09:24 Respiratory Rate 16 05/23/23 09:24 Blood Pressure 154/92 H 05/23/23 09:24 Pulse Oximetry 95 05/23/23 09:24 Oxygen Delivery Method Room Air 05/23/23 09:24 Course <FRANCE Norman - Last Filed: 05/23/23 12:12> Orders Ordered: ED Orders 05/23/23 10:26 XR chest 2V Stat 05/23/23 10:28 EKG-12 Lead Stat Discontinued Medications Al Hydrox/Mg Hydrox/Simethicone (Mag Hydrox/Alum/Simeth 30 Ml Udc) 30 ml PO NOW ONE Stop: 05/23/23 09:57 Last Admin: 05/23/23 10:05 Dose: 30 ml Documented By: TIESHA Vital Signs Vital signs: Vital Signs - 8 hr 05/23/23 09:24 05/23/23 12:16 Temperature 97.8 F Pulse Rate 104 H 85 Respiratory Rate 16 14 Blood Pressure 154/92 H 121/75 Pulse Oximetry 95 95 Oxygen Delivery Method Room Air Room Air <Paxton Santana DO - Last Filed: 05/23/23 13:04> Orders Ordered: ED Orders 05/23/23 10:26 XR chest 2V Stat 05/23/23 10:28 EKG-12 Lead Stat Discontinued Medications Al Hydrox/Mg Hydrox/Simethicone (Mag Hydrox/Alum/Simeth 30 Ml Udc) 30 ml PO NOW ONE Stop: 05/23/23 09:57 Last Admin: 05/23/23 10:05 Dose: 30 ml Documented By: TIESHA Vital Signs Vital signs: Vital Signs - 8 hr 05/23/23 09:24 05/23/23 12:16 Temperature 97.8 F Pulse Rate 104 H 85 Respiratory Rate 16 14 Blood Pressure 154/92 H 121/75 Pulse Oximetry 95 95 Oxygen Delivery Method Room Air Room Air MDM - Nausea/Vomiting/Diarrhea <FRANCE Norman - Last Filed: 05/23/23 12:12> Differential Diagnosis Differential diagnosis: Likely other (Esophageal spasm, GERD, cardiac anomaly, AAA) Imaging Data Chest x-ray: Radiologist's Impression: [address] [address] XRay Report Signed Patient: Yumiko Madrigal MR#: [id number] : 1995 Acct:[id number] Age/Sex: 27 / F Date of Service: 05/23/23 Loc: ED Accession Number: [id number] ?? Procedure: XR chest 2V Ordering Provider: Paxton Joya PROCEDURE:? XR CHEST 2V ? INDICATIONS:? chest discomfort ? TECHNIQUE:? 2 views of the chest were acquired.? ? COMPARISON:? [facility], CR, XR CHEST 2V, 01/30/2019, 19:19. ? FINDINGS:? ? Surgical changes and devices:? None.? ? Lungs and pleura:? Lungs are clear.? No pleural effusions or pneumothorax.? ? Mediastinum:? Mediastinal contours are normal.? Heart size is normal.? ? Bones and chest wall:? No suspicious bony abnormalities.? Soft tissues appear unremarkable.? ? IMPRESSION:? No acute cardiopulmonary abnormality. ? ? ? Dictated by: Ben Gaspar M.D. on 05/23/2023 at 10:52 ? ? Approved by: Ben Gaspar M.D. on 05/23/2023 at 10:52 ? ECG Data Attestation: I personally reviewed and interpreted this ECG as follows: Interpretation: Normal sinus rhythm with ventricular rate of 79 beats per minute with VA interval of 126 milliseconds. 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 Vital signs, assessment, chest x-ray and EKG are within normal limits and unconcerning. Suspect this is irritation of the esophagus from the GERD. Will recommend sucralfate. Discussed plan of care and return precautions with patient, who verbalized understanding and was agreeable with course of action. Discharge Plan Departure Patient Disposition: Home Clinical Impression: Dyspepsia Instructions: DI for Gastroesophageal Reflux Disease (GERD), DI for Dyspepsia Activity Restrictions/Additional Instructions: *You have been diagnosed with dyspepsia. My assessment was encouraging and your EKG and chest x-ray were both normal. As we discussed, I suspect you irritated the lining of your esophagus with your most recent episode heartburn. I will prescribe sucralfate that you will take 4 times a day for at least 5 days and up to 2 weeks. If symptoms fully resolve after 5 days, you may discontinue the medication, otherwise continue with the medication and follow up with your family doctor. For any worsening symptoms that includes intolerable pain, inability to swallow, shortness of breath, etc. please return to the emergency room immediately. Otherwise, follow up with your family doctor as needed. *What to do: *Please continue to take your regular medications as directed. [x ] New medication prescriptions sent to your pharmacy: [[facility] ] [ ] New medication written as a paper prescription [ ] No new medications given *Please follow up with your primary care provider in 2-3 days, call for an appointment. Let them know you were seen in the Emergency Department and that we ask that you be seen in follow up. We will electronically transmit a record of today's note if your PCP is in our system *If you do not have a primary care provider please contact the [facility] Resource line at [phone]. They will ask some questions about your medical history and help get you set up with a doctor in the community. ? Return to ER if you should have any new, worsening or concerning symptoms, such as worsening pain, severe headache, confusion, chest pain, difficulty breathing, fever greater than 101 F, shaking chills, persistent vomiting to the point that you cannot drink fluids, or other new or worsening symptoms. Prescriptions: New sucralfate 1 gram tablet 1 g PO QID Qty: 60 0RF Rx Instructions: Take 1 tablet by mouth 4 times a day (before breakfast, lunch, dinner and at bedtime) for up to 2 weeks. No Action Linzess 145 mcg capsule 290 mcg PO DAILY oxycodone 5 mg tablet 5 mg PO BID PRN (Reason: pain) Qty: 10 0RF amoxicillin-pot clavulanate 875-125 mg tablet 1 tab PO BID Qty: 14 0RF Rx Instructions: Take twice a day for one week prenat.vits,cammie,kcj-cnwi-sxdwr Tablet 1 tab PO DAILY Saccharomyces boulardii [Digest Probiotic (S.boulardii)] 250 mg capsule 500 mg PO BID cephalexin 500 mg capsule 500 mg PO TID Qty: 21 0RF Referrals: David Leal DO [Primary Care Provider] - Stand Alone Forms: Patient Portal/API <Paxton Santana DO - Last Filed: 05/23/23 13:04> Cosign ED Attending Cosignature Attestation: Dr Santana Co-Sign Statement: I was available for consultation during this patient's emergency department visit. This chart is signed by myself for administrative purposes only. I did not have direct contact with this patient during this visit. They were seen independently by the APC.
--- NOTE | 2023-05-23 11:10 | PC.NURSE ---
Safe handoff report from [employer] [facility]. Pt resting with baby. States that discomfort persists with no relief after medication. Denies any new symptoms.
[2023-05-23 12:16] VITALS: BP 121/75; PULSE 85; RESP 14; O2SAT 95
== END 2023-05-23 12:17 | disposition home or self-care (01) ==
PROVIDERS: Emergency Provider Registered Nurse; PCP Family Medicine
DX: R10.13 Epigastric pain (principal)
CPT/HCPCS: 71046; 93005; 93010; 99283

== ENCOUNTER → 2023-08-24 16:33 | Outpatient (CLI) | payer OTHER, MEDICAID, SELFPAY ==
[2023-08-24 17:53] LABS: Influenza A - CEPHEID Flu A NEGATIVE (NEGATIVE); Influenza B - CEPHEID Flu B NEGATIVE (NEGATIVE); Respiratory Syncytial Virus Negative (Negative)
[2023-08-24 17:56] LABS: COVID-19 CEPHEID 4-PLEX PCR Negative (Negative)
== END ==
PROVIDERS: PCP Family Medicine; Visit Provider Physician Assistant
DX: R05.1 Acute cough (principal); J02.9 Acute pharyngitis, unspecified
CPT/HCPCS: 0241U; 87070; 87880; C9803

== ENCOUNTER → 2023-09-16 11:12 | Outpatient (CLI) | payer OTHER, MEDICAID, SELFPAY ==
[2023-09-17 14:33] LABS: Candida species Negative (Negative); Gardnerella vaginalis Positive (Negative); Trichomoas vaginalis Negative (Negative)
== END ==
PROVIDERS: PCP Family Medicine; Visit Provider Obstetrics & Gynecology
DX: N89.8 Other specified noninflammatory disorders of vagina (principal)
CPT/HCPCS: 87480; 87510; 87660

== ENCOUNTER → 2023-09-20 07:50 | Outpatient (CLI) | payer OTHER, MEDICAID, SELFPAY ==
--- NOTE | 2023-09-20 07:52 | DI.US.S_ITS ---
PROCEDURE: US PELVIC COMPLETE INDICATIONS: PELVIC DISCOMFORT. H/O PCOS, ADENOMYOSIS, AND ENDOMETRIOSIS. TECHNIQUE: Real-time scanning was performed of the pelvic organs, with image documentation. Additional endovaginal scanning was necessary due to incomplete visualization of the adnexal and endometrial structures by transabdominal scanning. COMPARISON: [facility], US, US PELVIC COMPLETE, 02/17/2023, 8:03. FINDINGS: Uterus: Uterus is anteverted and normal in size at 6.6 x 5.1 x 3.3 cm. The myometrium is homogeneous. The endometrium measures 4 mm combined thickness. A few scattered punctate calcifications within the endometrium. Single anechoic endometrial cyst measuring 2 mm in size. Ovaries: The right ovary measures 4.6 x 1.8 x 1.6 cm, with a calculated ovarian volume of 6.9 cc. The left ovary measures 4.2 x 2.6 x 1.9 cm, with a calculated ovarian volume of 10.9 cc. The ovaries have a normal sonographic appearance. There greater than 12 follicles seen in the bilateral ovaries, more numerous on the left. No adnexal masses are seen. Other: No pathologic free abdominal or pelvic fluid. IMPRESSION: No acute sonographic abnormalities identified in the pelvis. Greater than 12 follicles identified in the bilateral ovaries with left ovarian volume measuring greater than 10 mL in size. Findings may represent polycystic ovarian syndrome. Otherwise, no suspicious ovarian/adnexal masses. We strive to produce accurate, complete, and clear reports of imaging services. To assist us in improving patient care, this report was composed using standard report templates and voice recognition software. Therefore, it may contain abnormal punctuation, insertions and/or omissions. Occasional wrong-word or sound-alike substitutions may occur. Though we review the report and make efforts to correct it, we do recommend that the report be read carefully in proper context to recognize any text inaccuracies. Dictated by: Martinez Moon M.D. on 09/20/2023 at 9:27 Approved by: Martinez Moon M.D. on 09/20/2023 at 9:36
== END ==
PROVIDERS: PCP Family Medicine; Referring Provider Obstetrics & Gynecology; Visit Provider Obstetrics & Gynecology
DX: N92.6 Irregular menstruation, unspecified (principal)
CPT/HCPCS: 76830; 76856

== ENCOUNTER → 2024-04-18 15:52 | Outpatient (CLI) | payer OTHER, SELFPAY ==
[2024-04-18 17:57] LABS: HCG Quantitative /Beta subunit < 2.39 mIU/mL
== END ==
PROVIDERS: PCP Family Medicine; Referring Provider Obstetrics & Gynecology; Visit Provider Obstetrics & Gynecology
DX: N91.2 Amenorrhea, unspecified (principal)
CPT/HCPCS: 84702

== ENCOUNTER → 2024-05-08 16:14 | Outpatient (CLI) | payer OTHER, SELFPAY | PROVIDERS: PCP Family Medicine; Visit Provider Obstetrics & Gynecology | DX: R31.9 Hematuria, unspecified (principal) | CPT/HCPCS: 87086 ==

== ENCOUNTER → 2024-05-09 08:41 | Outpatient (CLI) | payer OTHER, SELFPAY ==
[2024-05-09 10:10] LABS: Cholesterol 148 mg/dL (140-199); Glucose 91 mg/dL (70-100); HDL Cholesterol 51 mg/dL (40-60); LDL Cholesterol Calculated 87 mg/dL (<100); Triglycerides 51 mg/dL (35-150)
== END ==
PROVIDERS: PCP Family Medicine; Referring Provider Obstetrics & Gynecology; Visit Provider Obstetrics & Gynecology
DX: E28.2 Polycystic ovarian syndrome (principal)
CPT/HCPCS: 36415; 80061; 82947; 83001; 83002; 83525

== ENCOUNTER → 2024-05-18 16:49 | Outpatient (CLI) | payer OTHER, SELFPAY ==
[2024-05-18 18:36] LABS: Appearance Urine UA CLEAR; Bilirubin Urine UA NEGATIVE (NEGATIVE); Color Urine UA YELLOW; Glucose Urine UA NEGATIVE (Negative); Ketones Urine UA NEGATIVE (NEGATIVE); Leukocyte Esterase Urine UA NEGATIVE (NEGATIVE); Nitrite Urine UA NEGATIVE (Negative); Occult Blood Urine UA TRACE-INTACT (Negative); Protein Urine UA NEGATIVE (Negative); Specific Gravity Urine UA <=1.005 (1.000-1.035); Urobilinogen Urine UA 0.2 E.U./dL (0.2)
[2024-05-18 18:39] LABS: Bacteria Urine None Seen; Culture Indicated Urine Cult Not Indicated; RBC Urine None Seen (0-5/HPF); Squamous Epithelial Cell Urine 0-1 /HPF (0-5/HPF); Urine Volume 10mL (spun); WBC Urine None Seen (0-5/HPF)
== END ==
PROVIDERS: PCP Family Medicine; Visit Provider Obstetrics & Gynecology
DX: R31.9 Hematuria, unspecified (principal)
CPT/HCPCS: 81001

== ENCOUNTER → 2024-08-03 14:23 | Outpatient (CLI) | payer OTHER, SELFPAY ==
[2024-08-03 16:12] LABS: Add Manual Diff / Slide Review NO; Basophils Absolute Auto 0 /uL (0-100); Basophils Percent Auto 0.7 % (0-2); Eosinophils Absolute Auto 100 /uL (0-450); Eosinophils Percent Auto 0.9 % (2-4); Hematocrit 39.9 % (36-46); Hemoglobin 13.2 g/dL (12.0-16.0); Lymphocytes Absolute Auto 1700 /uL (1100-4500); Lymphocytes Percent Auto 24.6 % (25-40); Mean Corpuscular Hemoglobin 27.9 PG (26-34); Mean Corpuscular Volume 84.7 fL (80-100); Monocytes Absolute Auto 300 /uL (0-900); Monocytes Percent Auto 3.8 % (3-14); Neutrophils Absolute Auto 4700 /uL (1500-7000); Platelet Count 265 X10^3/uL (150-400); Red Blood Cell Count 4.71 X10^6/uL (4.0-5.2); Red Cell Distribution Width 13.6 % (11.6-14.8); White Blood Cell Count 6.7 X10^3/uL (4.5-11.0)
[2024-08-03 16:20] LABS: Hemoglobin A1C% w Est Avg Glu 5.1 % (4.0-6.0)
[2024-08-03 17:04] LABS: Alanine Aminotransferase 13 IU/L (<35); Albumin 4.5 g/dL (3.5-5.0); Albumin Globulin Ratio 1.7 (1.0-2.8); Alkaline Phosphatase 62 U/L (38-126); Aspartate Aminotransferase 23 IU/L (14-36); BUN Creatinine Ratio 17.5 (6-22); Bilirubin Total 0.5 mg/dL (0.2-1.3); Blood Urea Nitrogen 11 mg/dL (7-17); Calcium 9.7 mg/dL (8.4-10.2); Carbon Dioxide 27 mmol/L (22-32); Chloride 103 mmol/L (98-107); Estimated Glomerular Filt Rate > 60 mL/min (>60); Globulin 2.7 g/dL (1.7-4.1); Glucose 129 mg/dL (70-100); HEMOLYSIS < 15 (0-50); Potassium 3.7 mmol/L (3.4-5.1); Sodium 136 mmol/L (137-145); Total Protein 7.2 g/dL (6.3-8.2)
[2024-08-03 18:13] LABS: TSH w/ Reflex to FT4 0.28 uIU/mL (0.47-4.68)
[2024-08-03 18:50] LABS: Free T4, Direct Thyroxine 1.01 ng/dL (0.78-2.19)
== END ==
LOC: LAB 14:24
PROVIDERS: PCP Family Medicine; Referring Provider Family Medicine; Visit Provider Family Medicine
DX: R11.2 Nausea with vomiting, unspecified (principal); R10.13 Epigastric pain; R10.9 Unspecified abdominal pain
CPT/HCPCS: 36415; 80053; 83036; 84439; 84443; 85025

== ENCOUNTER → 2024-08-07 13:44 | Outpatient (CLI) | payer OTHER, SELFPAY ==
--- NOTE | 2024-08-07 13:45 | DI.CT.S_ITS ---
PROCEDURE: CT ABDOMEN PELVIS WO CON INDICATIONS: severe abd pain, nasuea, vomiting, constipation TECHNIQUE: Axial sections were acquired from the lung bases to the pubic symphysis. Coronal and sagittal reformats were performed. For radiation dose reduction, the following was used: automated exposure control, adjustment of mA and/or kV according to patient size. COMPARISON: None. FINDINGS: Image quality: Diagnostic. Lower Chest: No significant findings. URINARY: Right Kidney: Punctate nonobstructing right-sided nephrolithiasis. No hydronephrosis. Right Ureter: No hydroureter. Left Kidney: No stones or hydronephrosis. Left Ureter: No hydroureter. Bladder: Normal wall thickness. No stones. ABDOMEN: Liver: No contour-deforming solid mass. Gallbladder: No radiopaque gallstones or wall thickening. Biliary ducts: No biliary dilation. Pancreas: No ductal dilation. Spleen: Size is within normal limits. Adrenal Glands: No adrenal nodules. Stomach and Bowel: Normal colonic caliber, without significant wall thickening. Normal appendix. Normal colonic stool load. Peritoneum: No abnormal intraperitoneal fluid. No free air. Ventral Wall: No hernia. Abdominal Nodes: No enlarged retroperitoneal or mesenteric lymph nodes. Vessels: Aorta and inferior vena cava are normal in size. PELVIS: Pelvic Organs: Unremarkable. Pelvic Nodes: Unremarkable. Miscellaneous: No inguinal hernias are seen. Bones: Unremarkable. IMPRESSION: Small burden of punctate, nonobstructing right-sided nephrolithiasis. No acute abnormality otherwise. Dictated by: Tristan Peralta M.D. on 08/07/2024 at 14:53 Approved by: Tristan Peralta M.D. on 08/07/2024 at 14:57
== END ==
PROVIDERS: PCP Family Medicine; Referring Provider Family Medicine; Visit Provider Family Medicine
DX: K59.00 Constipation, unspecified (principal); R11.2 Nausea with vomiting, unspecified; R10.9 Unspecified abdominal pain; N20.0 Calculus of kidney
CPT/HCPCS: 74176

== ENCOUNTER → 2024-10-09 13:48 | Outpatient (CLI) | payer OTHER, SELFPAY | LOC: CAR 13:49 | PROVIDERS: PCP Family Medicine; Referring Provider Family Medicine; Visit Provider Family Medicine | DX: R42 Dizziness and giddiness (principal); R55 Syncope and collapse | CPT/HCPCS: 93242 ==

== ENCOUNTER → 2025-06-08 11:15 | Outpatient (CLI) | payer OTHER, SELFPAY ==
--- NOTE | 2025-06-08 | DI.MRI.S_ITS ---
PROCEDURE: MR KNEE RT WO CON INDICATIONS: KNEE PAIN TECHNIQUE: Noncontrast sagittal PD fast spin echo and T2 fast spin echo with fat saturation, sagittal 3-D FLASH with fat saturation; coronal T1 spin echo and PD fast spin echo with fat saturation, and axial PD fast spin echo with fat saturation through the knee. COMPARISON: [facility], CR, XR KNEE 3 VIEWS RIGHT, 01/22/2025, 10:53. FINDINGS: Image quality: Excellent. Menisci: Subtle complex tear involving posterior horn of medial meniscus extending to superior articulating surface. The lateral meniscus is intact. Cruciate ligaments: The anterior cruciate ligament appears thickened. The posterior cruciate ligament is intact. Medial structures: The medial collateral ligament appears mildly thickened with surrounding soft tissue edema. Visualized portions of the pes anserinus tendons appear normal. No abnormal bursal fluid. Lateral structures: The lateral collateral ligament, long and short heads of the biceps femoris tendon appear intact. The popliteus tendon appears normal. Iliotibial band appears normal. Anterior structures: The quadriceps and patellar tendons appear intact. Patellar alignment is normal. Bones and cartilage: No bone marrow contusions or fractures. The cartilage of the medial and lateral femorotibial compartments appears normal in thickness. Low- grade chondromalacia patella is seen. Joint space: There is small knee joint fluid. There is a 1.3 x 2.3 x 4.9 cm Billy's cyst. Normal appearing synovial plicae are incidentally noted. IMPRESSION: 1. Subtle complex tear involving posterior horn of medial meniscus extending to superior articulating surface. No lateral meniscal tear. 2. Thickened ACL suggestive of low-grade ACL sprain. No ACL rupture. The PCL is intact. 3. Low-grade MCL sprain. 4. Low-grade chondromalacia patella. No fracture or dislocation. Small joint effusion and a small Billy's cyst as above. No loose bodies. Dictated by: Arun Hicks M.D. on 06/08/2025 at 14:31 Approved by: Arun Hicks M.D. on 06/08/2025 at 14:33
== END ==
LOC: MRI 11:16
PROVIDERS: PCP Family Medicine; Referring Provider Student in an Organized Health Care Education/Training Program; Visit Provider Student in an Organized Health Care Education/Training Program
DX: S83.231A Complex tear of medial meniscus, current injury, right knee, initial encounter (principal); S83.411A Sprain of medial collateral ligament of right knee, initial encounter; M22.41 Chondromalacia patellae, right knee; M25.461 Effusion, right knee; M71.21 Synovial cyst of popliteal space [Baker], right knee; M25.561 Pain in right knee
CPT/HCPCS: 73721

== ENCOUNTER → 2025-08-29 09:53 | Outpatient (CLI) | payer OTHER, SELFPAY ==
[2025-08-29 10:34] LABS: Add Manual Diff / Slide Review NO; Hematocrit 38.7 % (36-46); Hemoglobin 13.2 g/dL (12.0-16.0); Lymphocytes Absolute Auto 1300 /uL (1100-4500); Mean Corpuscular HGB Conc 34.0 % (30-36); Mean Corpuscular Hemoglobin 29.0 PG (26-34); Mean Corpuscular Volume 85.4 fL (80-100); Platelet Count 278 X10^3/uL (150-400)
[2025-08-29 10:41] LABS: Hemoglobin A1C% w Est Avg Glu 5.2 % (4.0-6.0)
[2025-08-29 10:54] LABS: Alanine Aminotransferase 16 IU/L (<35); Albumin 4.6 g/dL (3.5-5.0); Albumin Globulin Ratio 1.9 (1.0-2.8); Alkaline Phosphatase 68 U/L (38-126); Blood Urea Nitrogen 11 mg/dL (7-17); Calcium 9.2 mg/dL (8.4-10.2); Carbon Dioxide 27 mmol/L (22-32); Chloride 103 mmol/L (98-107); Estimated Glomerular Filt Rate > 60 mL/min (>60); Globulin 2.4 g/dL (1.7-4.1); Glucose 84 mg/dL (70-99); HEMOLYSIS 26 (0-50); Potassium 4.3 mmol/L (3.4-5.1); Sodium 139 mmol/L (137-145); Total Protein 7.0 g/dL (6.3-8.2)
[2025-08-29 11:09] LABS: Follicle Stimulating Hormone 12.0 mIU/mL
[2025-08-29 11:24] LABS: TSH w/ Reflex to FT4 0.47 uIU/mL (0.47-4.68)
[2025-08-29 11:25] LABS: Estradiol, Total 247.8 pg/mL
== END ==
PROVIDERS: PCP Family Medicine; Referring Provider Obstetrics & Gynecology; Visit Provider Obstetrics & Gynecology
DX: E28.2 Polycystic ovarian syndrome (principal)
CPT/HCPCS: 36415; 80053; 82670; 83001; 83036; 84443; 85025

== ENCOUNTER 2025-09-07 13:00 | Outpatient (RCR) | payer OTHER, SELFPAY ==
--- NOTE | 2025-08-29 16:00 | PT.OIE ---
Current Diagnoses Pain in right knee (08/29/25) Past Medical History (Last Updated 09/28/24 @ 09:53 by Rachel Phillips MD) 35 weeks gestation of Abnormal uterine bleeding ADD (attention deficit disorder) Adenomyosis Allergies Anemia (~2018) Anxiety Asthma Cough Cranial somatic dysfunction Diverticular disease (~2015) Dizziness Dyspareunia (Unknown) Dyspepsia Ectopic Endometriosis Esophageal ring (~2015) Fatigue Fibromyalgia (~2011) Fracture Headache HTN (hypertension) Hypertension affecting in third trimester Interstitial cystitis Liver disease (~2010) Lower urinary tract symptoms (LUTS) Lymphadenopathy Mastitis Ovarian cyst Painful menstrual periods Pancreatitis (~2010) of unknown anatomic location Somatic dysfunction of abdominal region Somatic dysfunction of cervical region Somatic dysfunction of lower extremity Somatic dysfunction of lumbar region Somatic dysfunction of pelvis region Somatic dysfunction of rib region Somatic dysfunction of sacral region Somatic dysfunction of thoracic region Somatic dysfunction of upper extremity URI (upper respiratory infection) Vaginal delivery Yeast infection of nipple, Past Surgical History (Last Reviewed 12/01/23 @ 10:02 by David Leal DO) Anesthesia H/O laparoscopy History of colonoscopy (~2019) History of hysteroscopy (05/06/20) History of third molar tooth extraction Status post laparoscopy (07/20/16) Status post laparoscopy (10/29/17) Visit Care Team Role Provider Type Rachel Phillips MD Primary Care Provider Physician Specialty: Family Practice WRAPPER AND PRESERVER Address: [address] [place] [address], [id number] Fax: Email: [email or web address] Everett Islas MD Attending Provider Non-Staff Referring Provider Specialty: Orthopedic Surgery Address: [facility] [address]omy Rodriguez, [place], [address] Email: Physical Therapy Initial Evaluation PT OP: Lower Back/Lower Extremity Start: 08/29/25 17:36 Freq: Status: Active Protocol: Document 08/29/25 15:15 DCW (Rec: 08/29/25 17:57 DCW [id number]) Out-Patient Physical Therapy Visit Information Visit Information Visit Type Initial Evaluation Visit Start Time 15:25 Visit Stop Time 15:55 Visit Number 1 Number of POWER SHEAR OPERATOR Visits 0 Progress Note Due 09/28/25 Evaluation Information Evaluation Date 08/29/25 Current Condition History of Current Condition Onset Date Seven weeks post-op Current Complaints Arthroscopic R meniscus repair History of Current Pt is a 29 year old female presenting seven weeks s/p R Condition arthroscopic meniscus repair. Pt reports she also had partial tears of her ACL and MCL, but they were showing enough healing that the surgeon did not feel the need repair during surgery. Pt unsure on the initial injury, slipped on some ice during the winter, which may have caused her injury, but she's not sure. Also notes that she was very sick last year, ended up going from 200 lbs to 100 lbs within ~5 months, resulting in increased inflammation of all her joints. Reports she is still getting some medial knee discomfort, but it feels a lot better than it used to. Still occasionally feels that her knee will lock up occasionally, and is very painful to pivot on her planted right leg. Reports post -op, she was on-weight bearing for ~1 week, and then used a single crutch for another week. Per pt, surgeon currently has her on a 50# weight restriction, which means she is unable to get back to her job. Feels she can't kneel or squat well. 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 Has been doing some post-op exercises she found online, including marching, LAQ, and hip ER. OP-PT Subjective Patient Comments Patient Comments It's been seven weeks, and I just feel like I should be further along. OP Gait Assessment Comments Gait Comments Pt ambulates well, no antalgic gait pattern on flat surface. During stair descend, pt does exhibit mild antalgia and slight valgus of her right knee. Knee Goniometric Range of Motion Knee Right Knee ROM WFL Yes Patient Position Supine Flexion Active ( 123 degrees) Extension Active ( 3 degrees) Left Knee ROM WFL Yes Patient Position Supine Flexion Active ( 153 degrees) Hyper-Extension 5 Active Knee Strength Knee Manual Muscle Testing Right Flexion (S2) 4 Good Extension (L3) 5 Normal Left Flexion (S2) 5 Normal Extension (L3) 5 Normal Therapeutic Exercises Sitting Exercises Hamstring Curls Sitting Exercise Hamstring Curls Name Side right Resistance Lv 2 LAQ Sitting Exercise LAQ Name Side right Resistance Lv 2 Physical Therapy Assessment Rehab Potential Rehabilitation Good Potential Impairments Impairments Activity Tolerance,Balance,Functional Activities, Functional Mobility,Gait,Pain,ROM,Soft Tissue Mobility, Strength,Tone Goals Two Impairment Pt unable to return to work due to weight restrictions [facility] Goal (LTG) Pt to return to work with no restrictions and no complaints of pain throughout the course of her day, as allowed by surgeon's lifting restrictions LTG Duration 11/27/25 One Impairment Right knee flexion AROM 30? less than left [facility] Goal (LTG) Pt to improve right knee ROM to >140? flexion in order to improve functional mobility of right knee and improve squatting ability. LTG Duration 11/27/25 Assessment Summary Assessment Pt presents with signs and symptoms consistent with referring diagnosis. Pt is seven weeks post-op meniscus repair, overall doing quite well. Gait looks to be largely WNL, although still a bit of difficulty descending stairs. Pt mildly limited with right knee ROM and strength, particularly in flexion. Pt will likely benefit from skilled therapy focusing on strength, functional mobility, gait, stairs, and ROM in order to recover post-op and return to work without restriction. Physical Therapy Plan Frequency and Duration Frequency of 2x/Week Treatment Plan of Care Start 08/29/25 Date Plan of Care End 11/27/25 Date Therapeutic Interventions Therapeutic Balance Training,Gait Training,Home Exercise Program, Interventions Joint Mobilizations,Manual Therapy,Neuromuscular Re- education,Patient/Caregiver Education,Self-Care/Home Management,Soft Tissue Mobilization,Therapeutic Activities,Therapeutic Exercises Modalities Cold Pack/Ice Massage,Electric Stimulation,Hot Packs, Ultrasound Next Visit Focus/Plan Next Note Type Treatment Note
--- NOTE | 2025-08-31 16:04 | PT.OTN ---
Current Diagnoses Pain in right knee (08/31/25) Physical Therapy Treatment Note PT OP: Lower Back/Lower Extremity Start: 08/29/25 17:36 Freq: Status: Active Protocol: Document 08/31/25 15:15 DCW (Rec: 08/31/25 16:04 DCW [id number]) Out-Patient Physical Therapy Visit Information Visit Information Visit Type Treatment Note Visit Start Time 15:15 Visit Stop Time 16:00 Visit Number 2 Number of PLANT ETIOLOGIST Visits 0 Progress Note Due 09/28/25 Evaluation Information Evaluation Date 08/29/25 Cardio Equipment Elliptical Duration (Minutes) 5 Resistance 3 Other Slow/easy pace Gym Equipment Shuttle Recovery Bilateral Heel Raises Details Focus on full flexion, end range extension Resistance 25# Shuttle Recovery Stable Platform Shuttle Balance Red Details WBOS, Staggered, Lateral weight shift Therapeutic Exercises Sitting Exercises Hamstring Curls Sitting Exercise Hamstring Curls - Stool scoot Name Side bilateral Standing Exercises TKE Standing Exercise TKE Name Side right Resistance Lv 2 Other Exercises Step-downs Other Exercise Name Step-downs Side right Equipment Used 4 step Step-ups Other Exercise Name Step-ups Side right Equipment Used 8 step BOSU Lunge Other Exercise Name BOSU Lunge Side bilateral Manual Therapy Treatment Joint Mobilizations Patella Joint R Patella Direction Inferior/Superior Grade III Body Position Sitting Physical Therapy Assessment Impairments Impairments Activity Tolerance,Balance,Functional Activities, Functional Mobility,Gait,Pain,ROM,Soft Tissue Mobility, Strength,Tone Goals Two Impairment Pt unable to return to work due to weight restrictions Residential Coordinator Goal (LTG) Pt to return to work with no restrictions and no complaints of pain throughout the course of her day, as allowed by surgeon's lifting restrictions LTG Duration 11/27/25 One Impairment Right knee flexion AROM 30? less than left Assisted Goal (LTG) Pt to improve right knee ROM to >140? flexion in order to improve functional mobility of right knee and improve squatting ability. LTG Duration 11/27/25 Assessment Summary Assessment Pt tolerated treatment very well, noted some mild discomfort with activity in medial knee, but reported it was not really pain, just mild soreness. [place] happy with workout today, and has been compliant with HEP so far. Added TKE to HEP, pt agreeable. Physical Therapy Plan Frequency and Duration Frequency of 2x/Week Treatment Plan of Care Start 08/29/25 Date Plan of Care End 01/06/26 Date Therapeutic Interventions Therapeutic Balance Training,Gait Training,Home Exercise Program, Interventions Joint Mobilizations,Manual Therapy,Neuromuscular Re- education,Patient/Caregiver Education,Self-Care/Home Management,Soft Tissue Mobilization,Therapeutic Activities,Therapeutic Exercises Modalities Cold Pack/Ice Massage,Electric Stimulation,Hot Packs, Ultrasound Next Visit Focus/Plan Next Note Type Treatment Note
--- NOTE | 2025-09-04 09:44 | PT.OTN ---
Current Diagnoses Pain in right knee (09/04/25) Physical Therapy Treatment Note PT OP: Lower Back/Lower Extremity Start: 08/29/25 17:36 Freq: Status: Active Protocol: Document 09/04/25 09:04 SP (Rec: 09/04/25 09:48 SP [id number]) Out-Patient Physical Therapy Visit Information Visit Information Visit Type Treatment Note Visit Note PRERNA Pugh observed tx with pt permission. Visit Start Time 09:04 Visit Stop Time 09:44 Visit Number 3 Number of TURRET LATHE MACHINIST Visits 1 Progress Note Due 09/28/25 Precautions Precautions Surgical date 06/29/25 OP-PT Subjective Patient Comments Patient Comments Pt is s/p 8 weeks post op R menicus repair and reports was told physician removed alot cartilage that was causing irritation. 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 She found her most challenging HEP with standing resisted TKE and squats more eccentric split stance vs deep squat BLEs parallel with pain inferior patella and under patella into the end range movements. She is waiting to hear back from about if can lift more than 50# wt restrictions at this time. She is mindful of march step during pivot turns because if pivots on R LE and Knee tends to lock causing pain. She is on an antiinflammatory diet to help decrease use of NSAIDS. Knee Goniometric Range of Motion Knee Right Patient Position Prone Flexion Active ( 138 degrees) Flexion Passive ( 145 degrees) Comments 09/04/25: R knee flexion using yoga strap 145 PROM quad stretch, AROM 138 deg Therapeutic Exercises Prone Exercises Quad stretch Prone Exercise Name R quad stretch Side right Resistance PROM pt self Equipment Used yoga strap, noodle Reps/Minutes 2 x 30 Comments flexion reached 145 degrees Standing Exercises Self mob R knee anterior translation mobility Standing Exercise trialed with good response- Name Side right Equipment Used noodle behind knee, knee over toes, foot 2nd step Reps/Minutes 5 reps, pause 3 sec Comments reports good knee stretch movement Hamstring curls Standing Exercise Standing resisted HS curls, in slight hip ER, stance Name leg not locked. no HO Side bilateral Resistance L2 band at ankle,under opp foot Equipment Used UE support as needed Reps/Minutes x 10 each Comments Cues positioning, UE for balance as needed, flex with hip ER TKE Standing Exercise TKE Name Side right Resistance Lv 2 band Equipment Used rail bar, (less inferior patella catching with Ktape) Reps/Minutes 3 x 5 sec hold Comments cues knee alignment staying over ankle, slow out /in Manual Therapy Treatment Consent Patient gave verbal Yes consent for manual treatment Soft Tissue Mobilization R LE Body Location Quad, TFL Mobilization Type Rolling,Strumming Intensity/Depth Moderate Body Position Supine Comments in modified Sergo position with R lower leg off table Joint Mobilizations R Tibial/femoral Joint R tibial/femoral Direction tib anterior translation Grade III Body Position Prone Reps/Duration 5 x 5 sec hold Comments Prone, R knee flexed to 90, using yoga strap around TURRET LATHE MACHINIST with further flexion of knee, pt can felt a good inside knee good gentle stretch and quad stretch, educated pt on self mobilization with yoga strap. Taping K tape to R patella Body Location R patella area Treatment Focus Patellar stabilization Type of Tape k tape Skin Inspection normal coloring and intact skin check Comments One strip in C lateral patella and one strip in C around medial patella, full stretch sides of knee jt line/patella, layed down rest, followed with TKE to see if knee discomfort inferior patella/superior patellar tendon area improved by K-tape. Pt states knee felt a little more stable with the K-tape during TKE. Instructed adverse affects (redness, itching, tingling) remove but if ok can stay on for up to 2-4 days if beneficial and wear in shower ok, remove easily. Self-Care/Home Management Treatment Activities Self-Care/Home Instruction to patient self demonstration return Management proximal tibia anterior glide in standing with use Activities noodle behind R knee with good response increased knee flexion range with reduction tightness inside knee and quad stretch prone use yoga strap prone, declined handout imge for home. Physical Therapy Assessment Goals Two Impairment Pt unable to return to work due to weight restrictions Jewelry Bench Molder Goal (LTG) Pt to return to work with no restrictions and no complaints of pain throughout the course of her day, as allowed by surgeon's lifting restrictions LTG Duration 11/27/25 One Impairment Right knee flexion AROM 30? less than left Alf Goal (LTG) Pt to improve right knee ROM to >140? flexion in order to improve functional mobility of right knee and improve squatting ability. 09/04/25: progressing: R knee flexion using yoga strap 145 PROM quad stretch post manual, AROM 138 deg post quad stretch. LTG Duration 11/27/25 progressing 09/04/25 Assessment Summary Assessment Pt responded well to manual massage and instruction of self R knee mobility use if noodle behind knee with foot on 2nd step into R knee flexion knee passed toes good inside knee stretch, less tightness, declined HO. Pt is making gains with R knee AAROM and AROM today, 145 PROM strap use and 138 deg flexion end of tx. Intiated standing resisted hamstring curls with cues for R knee soft unlock positioning into extension for stability strengthening during SLS time for gait while LLE completed HS curl, Suprised this is good effort work for my R leg even though L leg is moving. Physical Therapy Plan Frequency and Duration Frequency of 2x/Week Treatment Plan of Care Start 08/29/25 Date Plan of Care End 11/27/25 Date Therapeutic Interventions Therapeutic Balance Training,Gait Training,Home Exercise Program, Interventions Joint Mobilizations,Manual Therapy,Neuromuscular Re- education,Patient/Caregiver Education,Self-Care/Home Management,Soft Tissue Mobilization,Therapeutic Activities,Therapeutic Exercises Modalities Cold Pack/Ice Massage,Electric Stimulation,Hot Packs, Ultrasound Next Visit Focus/Plan Next Note Type Treatment Note Next Visit Plan Recheck HEP, newly added resisted standing HS curl for continued strengthening for gait stance time and R knee self mobes for progressing AROM to pivot turns during gait. POC: Progress strength, balance and functional mobiltiy independence.
--- NOTE | 2025-09-07 14:03 | PT.OTN ---
Addendum entered and electronically signed by Angelina Kirkland PTA 09/07/25 14:24: Yumiko has a 50# weight restriction limit, doctor said will clear her for more if can show in PT that is safely capable performing, will decided in Dec follow up appt unless she can demonstrate sooner and PT can document for supportive awareness. Original Note: Current Diagnoses Pain in right knee (09/07/25) Physical Therapy Treatment Note PT OP: Lower Back/Lower Extremity Start: 08/29/25 17:36 Freq: Status: Active Protocol: Document 09/07/25 13:01 PD (Rec: 09/07/25 13:46 PD [id number]) Out-Patient Physical Therapy Visit Information Visit Information Visit Type Treatment Note Visit Note PRERNA Pugh led tx session with direct supervision by ADRIANNA Alfaro and patient permission Visit Start Time 13:01 Visit Stop Time 13:43 Visit Number 4 Number of QA ANALYST Visits 2 Progress Note Due 09/28/25 Precautions Precautions Surgical date 06/29/25. Patient has 50# lifting limit until cleared by physician with feedback from PT. OP-PT Subjective Patient Comments Patient Comments Pt feels good, she has been doing the stretches with the pool noodle behind her knee, TKE with resistance, and her own stretching. She feels a bit sore sometimes, [place] and her knee felt less stable but she is working on it to get it more stable. Cardio Equipment Recumbent Elliptical (NuStep) Duration (Minutes) 5 Resistance L3>2 Seat Position 8 Other Focus on control of R knee alignment during movement Gym Equipment Shuttle Recovery Unilateral squat Details Cues slow in/out, stable R knee Resistance 25# Shuttle Recovery Stable Platform Reps/Time 2 x 10 Bilateral Squats Resistance 25# Shuttle Recovery Stable Platform Reps/Time x 15 ball between legs Therapeutic Exercises Standing Exercises TKE Standing Exercise TKE Name Side right Resistance Lv 3 band Equipment Used rail bar, (less inferior patella catching with Ktape) Reps/Minutes 2 x 10, slow out and back Comments cues for band behind distal thigh, upward slant to rail support Other Exercises Step-downs Other Exercise Name Step-downs - review for HEP Side right Equipment Used 6 step Reps/Minutes 3 x 10 Comments Cues to use UE on rail only as needed to maintain form Step-ups Other Exercise Name Step-ups - for HEP using 2 steps at home and rail Side right Equipment Used 12 step Reps/Minutes 2 x 10 Comments Step up with R lead, down with L as R down is too much now BOSU Lunge Other Exercise Name BOSU Lunge Side right Reps/Minutes 2 x 10 Comments Cues maintain knee stability with slow motion, let ankle adjust to surface Manual Therapy Treatment Taping K tape to R patella Body Location R patella area Treatment Focus Patellar stabilization Type of Tape k tape Skin Inspection normal coloring and intact skin check Comments One strip in C lateral patella and one strip in C around medial patella, full stretch sides of knee jt line/patella, layed down rest, followed with TKE to see if knee discomfort inferior patella/superior patellar tendon area improved by K-tape. Pt states knee felt a little more stable with the K-tape during TKE. Instructed adverse affects (redness, itching, tingling) remove but if ok can stay on for up to 2-4 days if beneficial and wear in shower ok, remove easily. Physical Therapy Assessment Goals Two Impairment Pt unable to return to work due to weight restrictions Longterm Goal (LTG) Pt to return to work with no restrictions and no complaints of pain throughout the course of her day, as allowed by surgeon's lifting restrictions LTG Duration 11/27/25 One Impairment Right knee flexion AROM 30? less than left Glazier Apprentice Goal (LTG) Pt to improve right knee ROM to >140? flexion in order to improve functional mobility of right knee and improve squatting ability. 09/04/25: progressing: R knee flexion using yoga strap 145 PROM quad stretch post manual, AROM 138 deg post quad stretch. LTG Duration 11/27/25 progressing 09/04/25 Assessment Summary Assessment Progressed HEP to L3 band, added in step ups to second step at home (approx 12) going up with R and down with L. 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 Pt feels fine at end of session, she feels that she worked her knee more but she has no pain. Physical Therapy Plan Frequency and Duration Frequency of 2x/Week Treatment Plan of Care Start 08/29/25 Date Plan of Care End 11/27/25 Date Next Visit Focus/Plan Next Note Type Treatment Note Next Visit Plan Assess HEP, tolerance for progression from 09/07. 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 POC: Progress strength, balance and functional mobilty independence.
--- NOTE | 2025-10-05 15:46 | PT-OP ANOTE ---
Addendum entered and electronically signed by Angelina Kirkland, COLOR STRAINING BAG WASHER 10/05/25 15:49: Pt hasn't been seen since 09/07/25, due for PN next tx, only has 2 more visit schedule. Assess compliance. Original Note: Pt cancelled appt day of, states her child is sick and has not one to watch them, and unable to bring child with her to appt, so unable to attend.
--- NOTE | 2025-11-13 16:28 | PT.OPDS ---
Current Diagnoses Pain in right knee (09/07/25) Visit Care Team Role Provider Type Rachel Phillips MD Primary Care Provider Physician Specialty: Family Practice STONE PROCESSING MACHINE OPERATOR Address: [address] [place], [address] Fax: Email: [email or web address] Everett Islas MD Attending Provider Non-Staff Referring Provider Specialty: Orthopedic Surgery [facility], [place], [address] Email: Visit Number Visit Number 4 Discharge Summary PT OP: Lower Back/Lower Extremity Start: 08/29/25 17:36 Freq: Status: Active Protocol: Document 11/13/25 16:25 DCW (Rec: 11/13/25 16:28 DCW [id number]) Out-Patient Physical Therapy Visit Information Visit Information Visit Type Discharge Summary Physical Therapy Assessment Assessment Summary Assessment Pt has not been seen in more than two months, and has cancelled all recent appointments. Pt contacted by PRESSROOM SUPERVISOR, pt apologized, reports she is juggling three jobs and just not able to participate in PT at this time. Pt understands that she can call for a new referral in the future if needed. Pt will be discharged from skilled PT at this time. Physical Therapy Plan Discharge Physical Therapy Discharge Reasons No Longer Attending PT
== END 2025-11-20 09:41 | disposition home or self-care (01) ==
LOC: PHYS 13:00
PROVIDERS: PCP Family Medicine; Referring Provider Student in an Organized Health Care Education/Training Program; Visit Provider Student in an Organized Health Care Education/Training Program
DX: M25.561 Pain in right knee (principal)
CPT/HCPCS: 97110; 97140; 97161; 97535

== ENCOUNTER → 2025-09-11 09:31 | Outpatient (CLI) | payer OTHER, SELFPAY ==
[2025-09-11 09:49] LABS: Appearance Urine UA CLEAR; Bilirubin Urine UA NEGATIVE (NEGATIVE); Color Urine UA YELLOW; Glucose Urine UA NEGATIVE (Negative); Ketones Urine UA NEGATIVE (NEGATIVE); Leukocyte Esterase Urine UA 1+ (NEGATIVE); Nitrite Urine UA NEGATIVE (Negative); Occult Blood Urine UA 1+ (Negative); Protein Urine UA NEGATIVE (Negative); Specific Gravity Urine UA <=1.005 (1.000-1.035); Urobilinogen Urine UA 0.2 E.U./dL (0.2)
[2025-09-11 09:57] LABS: pH Urine UA 5.5 (4.5-8.0)
[2025-09-11 10:26] LABS: Culture Indicated Urine Cult Not Indicated
== END ==
PROVIDERS: PCP Family Medicine; Referring Provider Obstetrics & Gynecology; Visit Provider Obstetrics & Gynecology
DX: R30.0 Dysuria (principal)
CPT/HCPCS: 81001

== ENCOUNTER → 2025-09-24 15:37 | Outpatient (CLI) | payer OTHER, SELFPAY ==
[2025-09-25 14:09] LABS: Trichomoas vaginalis Negative (Negative)
== END ==
PROVIDERS: PCP Family Medicine; Visit Provider Obstetrics & Gynecology
DX: N39.0 Urinary tract infection, site not specified (principal); Z11.3 Encounter for screening for infections with a predominantly sexual mode of transmission
CPT/HCPCS: 81514; 87086; 87491; 87563; 87591

== ENCOUNTER → 2025-11-06 16:29 | Outpatient (CLI) | payer OTHER, SELFPAY ==
[2025-11-06 17:41] LABS: HCG Quantitative /Beta subunit 111.49 mIU/mL
== END ==
PROVIDERS: Obstetrics & Gynecology; PCP Family Medicine; Referring Provider Family Medicine; Visit Provider Family Medicine
DX: N91.2 Amenorrhea, unspecified (principal); N96 Recurrent pregnancy loss
CPT/HCPCS: 36415; 84702

== ENCOUNTER → 2025-11-09 13:35 | Outpatient (CLI) | payer OTHER, SELFPAY ==
[2025-11-09 15:02] LABS: HCG Quantitative /Beta subunit 443.56 mIU/mL
== END ==
PROVIDERS: PCP Family Medicine; Referring Provider Obstetrics & Gynecology; Visit Provider Obstetrics & Gynecology
DX: N91.2 Amenorrhea, unspecified (principal); N96 Recurrent pregnancy loss
CPT/HCPCS: 36415; 84702